=== PATIENT | male | born 1955 | race Caucasian/White ===

== ENCOUNTER 2016-06-28 13:02 | Inpatient (IN) | payer OTHER ==
[2016-06-28] MEDS ORDERED: ASPIRIN 81 MG CHEW PO STA (13:19)
[2016-06-28] MEDS ORDERED: NITROGLYCERIN OINT 1 INCH/GM PACKET TOPICAL STA (13:19)
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
[2016-06-28 13:48] LABS: Aty Lym Flag Slight; CH 34.2; CHCM 33.3; HCT 41.1 % (39.0-53.0); HGB 13.8 gm/dL (13.0-17.5); MCH 34.6 pg (25.0-35.0); MCHC 33.5 g/dL (31.0-37.0); MCV 103.4 fL (80.0-100.0); Macrocytosis Slight; Mean Platelet Volume 8.2; RBC 3.98 m/uL (4.30-5.90); RDW 13.6 % (11.5-15.5); WBC 7.9 k/uL (3.8-10.6)
[2016-06-28 13:52] LABS: Anion Gap 9 mmol/L; Calcium 9.3 mg/dL (8.4-10.2); Carbon Dioxide 26 mmol/L (22-30); Chloride 106 mmol/L (98-107); Glucose 92 mg/dL (74-99); Non-African American GFR(MDRD) >60 (>60 ml/min/1.73 sqM); Potassium 5.3 mmol/L (3.5-5.1); Sodium 141 mmol/L (137-145); Total Bilirubin 0.9 mg/dL (0.2-1.3); Total Protein 7.3 g/dL (6.3-8.2)
[2016-06-28 13:53] LABS: ALT 33 U/L (21-72); AST 33 U/L (17-59); Alkaline Phosphatase 68 U/L (38-126); Blood Urea Nitrogen 17 mg/dL (9-20); Magnesium 1.9 mg/dL (1.6-2.3)
[2016-06-28 13:58] LABS: INR 1.2 (<1.1); Partial Thromboplastin Time 23.5 sec (22.0-30.0); Prothrombin Time 11.8 sec (9.0-12.0)
--- NOTE | 2016-06-28 14:11 | XR ---
EXAMINATION TYPE: XR chest 2V DATE OF EXAM: 06/28/2016 1:53 PM COMPARISON: Prior chest x-ray 08 April 2015 HISTORY: Chest pain TECHNIQUE: Frontal and lateral views of the chest are obtained. FINDINGS: Intracardiac defibrillator leads, post median sternotomy change, surgical clips in the upp er abdomen, stent graft in the abdomen are noted. There is no pneumonia, pneumothorax, or pleural eff usion evident. Heart size is stable and mildly enlarged. IMPRESSION: Patient is rotated. No acute cardiopulmonary disease is evident.
[2016-06-28 14:15] LABS: Creatine Kinase 69 U/L (55-170)
[2016-06-28 14:22] LABS: Add Differential Manual Differential
[2016-06-28 14:27] LABS: Nucleated Red Blood Cells 0 /100 WBC (0-0); Total Cells Counted 100
[2016-06-28 14:28] LABS: Manual Review Performed; Troponin I <0.012 ng/mL (0.000-0.034)
[2016-06-28 14:29] LABS: Large Platelets Present
[2016-06-28] MEDS ORDERED: NITROGLYCERIN SL TABS 0.4 MG TAB SUBLINGUAL PRN (15:59)
[2016-06-28] MEDS ORDERED: HEPARIN SODIUM,PORCINE 5,000 UNIT/ML 1 ML VIAL IV PRN (15:59)
[2016-06-28] MEDS ORDERED: HEPARIN SODIUM,PORCINE 5,000 UNIT/ML 1 ML VIAL IV ONE (15:59)
[2016-06-28] MEDS: HEPARIN SODIUM,PORCINE/D5W PMX 25,000 UNIT in DEXTROSE/WATER 1 500ML.BAG IV SCH (16:29)
[2016-06-28 19:33] LABS: Troponin I 0.185 ng/mL (0.000-0.034)
[2016-06-28] MEDS: HYDROcodone/APAP 10-325MG 1 EACH TAB PO SCH (19:51)
[2016-06-28 20:00] VITALS: BMI 25.1
[2016-06-28] MEDS: NITROGLYCERIN OINT 1 INCH/GM PACKET TOPICAL SCH ×2 (20:10→22:47)
[2016-06-28] MEDS: LISINOPRIL 5 MG TAB PO SCH (20:23)
[2016-06-28] MEDS ORDERED: NON-FORMULARY DRUG (Rivaroxaban [Xarelto] 20 MG) PO SCH (21:00)
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
[2016-06-28] MEDS: FERROUS SULFATE 325 MG TAB PO SCH (22:47)
[2016-06-28] MEDS: ATORVASTATIN 40 MG TAB PO SCH (22:47)
[2016-06-28] MEDS: METOPROLOL TARTRATE 50 MG TAB PO SCH (22:47)
[2016-06-29 01:01] LABS: Creatine Kinase MB 1.9 ng/mL (0.0-2.4)
[2016-06-29 01:19] LABS: Troponin I 0.203 ng/mL (0.000-0.034)
[2016-06-29] MEDS: HYDROcodone/APAP 10-325MG 1 EACH TAB PO SCH ×5 (05:15→23:16)
[2016-06-29] MEDS: NITROGLYCERIN OINT 1 INCH/GM PACKET TOPICAL SCH ×4 (05:42→23:16)
[2016-06-29 06:42] LABS: Mean Platelet Volume 8.1
[2016-06-29 06:45] LABS: Potassium 4.7 mmol/L (3.5-5.1)
[2016-06-29] MEDS: FUROSEMIDE 20 MG TAB PO SCH (08:48)
[2016-06-29] MEDS: METOPROLOL TARTRATE 50 MG TAB PO SCH ×2 (08:49→22:21)
[2016-06-29] MEDS: LISINOPRIL 5 MG TAB PO SCH (08:49)
[2016-06-29] MEDS: FERROUS SULFATE 325 MG TAB PO SCH ×2 (08:49→22:22)
[2016-06-29] MEDS: ASPIRIN 325 MG TAB PO SCH (08:49)
[2016-06-29] MEDS: MULTIVITAMINS, THERA 1 EACH TAB PO SCH (11:24)
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
--- NOTE | 2016-06-29 15:41 | PN ---
DATE OF SERVICE: 06/29/2016 This 60-year-old white male who has a long-standing history of coronary artery disease, has had a myocardial infarction and coronary artery bypass graft in the past. Patient came to the emergency room with bilateral jaw pain and chest discomfort and patient was evaluated in the emergency room and patient was admitted to the hospital for further evaluation and treatment. The patient was admitted with telemetry and heart being monitored with telemetry and serial EKGs and cardiac enzymes were obtained. Cardiology consultation has been requested. His last troponin level was 0.23 and this has been report the trimming caser. Patient today seems to be fairly comfortable and he is asymptomatic. Vital signs are stable. At the time of admission, the patient had slightly elevated serum potassium. Today it has come down to normal and is 4.7 and sodium 140. BUN and creatinine were within normal limits. His vital signs are stable. Heart is in sinus rhythm. Lungs are clear. He has no acute cardiorespiratory problems. Patient is being evaluated by trimming caser and in the meantime, will continue current medications. The patient has already been placed back on his previous home medications. Prognosis is guarded. The diagnosis, prognosis, and therapeutic plans were discussed in detail with the patient today also.
--- NOTE | 2016-06-29 16:01 | ECHOF ---
Referral Reason:unstable angina MEASUREMENTS -------- HEIGHT: 157.5 cm WEIGHT: 88.9 kg BP: 140/660 RVIDd: 3.3 cm (< 3.3) IVSd: 1.2 cm (0.6 - 1.1) LVIDd: 5.9 cm (3.9 - 5.3) LVPWd: 1.1 cm (0.6 - 1.1) IVSs: 1.7 cm LVIDs: 4.9 cm LVPWs: 1.5 cm LA Diam: 4.6 cm (2.7 - 3.8) Ao Diam: 3.5 cm (2.0 - 3.7) AV Cusp: 1.5 cm (1.5 - 2.6) LA Diam: 4.6 cm (2.7 - 3.8) MV EXCURSION: 16.594 mm (> 18.000) MV EF SLOPE: 78 mm/s (70 - 150) EPSS: 1.3 cm MV E Catarino: 0.55 m/s MV DecT: 225 ms MV A Catarino: 0.36 m/s MV E/A Ratio: 1.54 RAP: 5.00 mmHg RVSP: 9.35 mmHg FINDINGS -------- Paced rhythm. This was a techncally difficult study with suboptimal views, , Definity utilized for enhancement of images. There is mild concentric left ventricular hypertrophy. There is severe global hypokinesis of LV . Overall left ventricular systolic function is severely impaired with, an EF < 20%. The right ventricle is mildly enlarged. The left atrium is moderately dilated. The right atrial size is normal. 1.5MG OF DEFINITY UTLIZED: 2 OR MORE WALL SEGMENTS NOT VISUALIZED. There is mild aortic valve sclerosis. There is no evidence of aortic regurgitation. Mild mitral annular calcification present. Mild mitral regurgitation is present. Mild tricuspid regurgitation present. Right ventricular systolic pressure is normal at < 35 mmHg. There is no evidence of pulmonary hypertension. There is no pulmonic regurgitation present. The aortic root size is normal. There is no pericardial effusion. CONCLUSIONS -------- 1. This was a techncally difficult study with suboptimal views, , Definity utilized for enhancement of images. 2. Mild tricuspid regurgitation present. 3. Right ventricular systolic pressure is normal at < 35 mmHg. 4. There is no evidence of pulmonary hypertension. 5. The aortic root size is normal. 6. There is no pericardial effusion. 7. There is mild concentric left ventricular hypertrophy. 8. There is severe global hypokinesis of LV . 9. Overall left ventricular systolic function is severely impaired with, an EF < 20%. 10. The left atrium is moderately dilated. 11. 1.5MG OF DEFINITY UTLIZED: 2 OR MORE WALL SEGMENTS NOT VISUALIZED. 12. There is mild aortic valve sclerosis. 13. Mild mitral annular calcification present. 14. Mild mitral regurgitation is present. DERMATOLOGY SPECIALIST: Ting Werner RDCS
[2016-06-29] MEDS: HEPARIN SODIUM,PORCINE/D5W PMX 25,000 UNIT in DEXTROSE/WATER 1 500ML.BAG IV SCH (16:20)
[2016-06-29] MEDS: DIAZEPAM 5 MG TAB PO SCH (22:20)
[2016-06-29] MEDS: ATORVASTATIN 40 MG TAB PO SCH (22:22)
[2016-06-30] MEDS: NITROGLYCERIN OINT 1 INCH/GM PACKET TOPICAL SCH ×3 (06:09→17:43)
[2016-06-30] MEDS: HYDROcodone/APAP 10-325MG 1 EACH TAB PO SCH ×3 (06:51→17:40)
[2016-06-30 07:06] LABS: Mean Platelet Volume 7.9
[2016-06-30] MEDS: LISINOPRIL 5 MG TAB PO SCH (08:43)
[2016-06-30] MEDS: ASPIRIN 325 MG TAB PO SCH (08:43)
[2016-06-30] MEDS: METOPROLOL TARTRATE 50 MG TAB PO SCH ×2 (08:43→20:21)
[2016-06-30] MEDS: FERROUS SULFATE 325 MG TAB PO SCH ×2 (08:43→20:21)
[2016-06-30] MEDS: FUROSEMIDE 20 MG TAB PO SCH (08:43)
[2016-06-30] MEDS: MULTIVITAMINS, THERA 1 EACH TAB PO SCH (11:35)
[2016-06-30] MEDS: HEPARIN SODIUM,PORCINE/D5W PMX 25,000 UNIT in DEXTROSE/WATER 1 500ML.BAG IV SCH (15:33)
--- NOTE | 2016-06-30 17:28 | PN ---
DATE OF SERVICE: 06/30/2016 This is a 60-year-old white male who has a long-standing history of coronary artery disease and he has had coronary artery bypass graft in the past and also has a history of myocardial infarction in the past. He was admitted to hospital through the emergency room because of sudden onset of bilateral jaw pain and patient also had some chest discomfort. The patient's EKG and cardiac enzymes were unremarkable in the ER and patient was admitted to the hospital for further evaluation and treatment. Patient had a serial EKGs and cardiac enzymes and cardiology consultation was requested. Troponin was found to be related in the later samples and patient apparently has non-ST elevation myocardial infarction and cardiology saw the patient in consultation and he has been scheduled for cardiac catheterization tomorrow. Otherwise, his vital signs are stable. He is free of any chest pain and he has been placed back on his previous medications. Patient is also complaining of anxiety and we will place him on Xanax 0.25 mg p.o. t.i.d. p.r.n. Patient was told that cardiology is planning to go cardiac catheterization tomorrow. The patient is agreeable for that. Prognosis is guarded.
--- NOTE | 2016-06-30 19:48 | P.PN ---
Subjective Principal diagnosis: Non-ST elevation myocardial infarction. Ischemic cardiomyopathy, previous bypass surgery This patient with history of previous bypass surgery is admitted to the hospital with chest pain size to of angina. Cardiac enzyme studies are positive suggestive of non-ST elevation PR. Patient is feeling better. He denies any chest pain shortness of breath dizziness or syncope. Is going to have cardiac catheterization by Dr. VC Osman tomorrow. We'll keep him nothing by mouth after midnight. She'll continue current medical therapy Objective - Vital Signs Vital signs: Vital Signs Temp 97.1 F L 06/30/16 16:00 Pulse 50 L 06/30/16 16:00 Resp 18 06/30/16 16:00 BP 116/80 06/30/16 16:00 Pulse Ox 95 06/30/16 16:00 Intake & Output 06/30/16 06/30/16 07/01/16 06:59 18:59 06:59 Intake Total 542.4 800 Output Total 2150 Balance 542.4 -1350 Weight 89.1 kg 89.1 kg Intake: IV 542.4 Heparin Sodium,Porcine/ 542.4 D5w Pmx 25,000 unit In Dextrose/Water 1 500ml. bag @ 12 UNITS/KG/HR 19. 59 mls/hr IV .Q24H [facility] Rx #:[id number] Intake, IV Titration 500 Amount Heparin Sodium,Porcine/ 500 D5w Pmx 25,000 unit In Dextrose/Water 1 500ml. bag @ 12 UNITS/KG/HR 19. 59 mls/hr IV .Q24H [facility] Rx #:[id number] Oral 300 Output: Urine 2150 Other: Voiding Method Toilet Toilet # Voids 2 2 - Exam GENERAL EXAM: Patient is alert and oriented and doesn't appear to be in any acute distress HEENT: Normocephalic. Normal reaction of pupils, equal size, normal range of extraocular motion. No erythema or exudates in the throat. NECK: No masses, no nuchal rigidity. CHEST: No chest wall deformity. LUNGS: Equal air entry with no crackles or wheeze. HEART: S1 and S2 normal with no audible mumurs or gallops. Regular rhythm, femorals equal on both sides.. ABDOMEN: No hepatosplenomegaly, normal bowel sounds, no guarding or rigidity. SKIN: No rashes CENTRAL NERVOUS SYSTEM: No focal deficits. EXTREMITIES: No cyanosis, clubbing or edema. - Labs CBC & Chem 7: 06/30/16 06:03 06/29/16 06:04 Labs: Abnormal Lab Results - Last 24 Hours (Table) 06/30/16 Range/Units 06:03 APTT 52.4 H (22.0-30.0) sec Assessment and Plan (1) Non-ST elevation PR (NSTEMI) Status: Acute (2) AICD (automatic cardioverter/defibrillator) present Status: Chronic (3) Cardiomyopathy Status: Chronic (4) Ischemic cardiomyopathy Status: Chronic (5) S/P aorto-bifemoral bypass surgery Status: Chronic Plan: Patient is currently stable. We will continue current medical therapy. He is going to have a cardiac catheterization by Dr. VC Osman tomorrow. Prognosis is guarded
[2016-06-30] MEDS: ATORVASTATIN 40 MG TAB PO SCH (20:21)
[2016-06-30] MEDS: DIAZEPAM 5 MG TAB PO SCH (20:36)
[2016-06-30] MEDS: ALPRAZolam 0.25 MG TAB PO PRN (20:54)
[2016-07-01] MEDS: HYDROcodone/APAP 10-325MG 1 EACH TAB PO SCH ×5 (00:48→23:23)
[2016-07-01] MEDS: NITROGLYCERIN OINT 1 INCH/GM PACKET TOPICAL SCH ×3 (00:49→12:02)
[2016-07-01 05:59] LABS: Mean Platelet Volume 8.1
[2016-07-01] MEDS: LISINOPRIL 5 MG TAB PO SCH (06:21)
[2016-07-01] MEDS: ASPIRIN 325 MG TAB PO SCH (06:21)
[2016-07-01] MEDS: METOPROLOL TARTRATE 50 MG TAB PO SCH ×2 (06:22→21:36)
[2016-07-01] MEDS: FERROUS SULFATE 325 MG TAB PO SCH ×2 (06:22→21:36)
[2016-07-01 06:34] LABS: ALT 40 U/L (21-72); AST 41 U/L (17-59); Alkaline Phosphatase 75 U/L (38-126); Anion Gap 8 mmol/L; Blood Urea Nitrogen 17 mg/dL (9-20); Calcium 9.2 mg/dL (8.4-10.2); Carbon Dioxide 29 mmol/L (22-30); Chloride 104 mmol/L (98-107); Glucose 105 mg/dL (74-99); Non-African American GFR(MDRD) >60 (>60 ml/min/1.73 sqM); Potassium 4.4 mmol/L (3.5-5.1); Sodium 141 mmol/L (137-145); Total Bilirubin 0.7 mg/dL (0.2-1.3); Total Protein 7.3 g/dL (6.3-8.2)
[2016-07-01] MEDS: ALPRAZolam 0.25 MG TAB PO PRN ×3 (08:07→23:23)
[2016-07-01] MEDS: FUROSEMIDE 20 MG TAB PO SCH (09:03)
[2016-07-01] MEDS: MULTIVITAMINS, THERA 1 EACH TAB PO SCH (10:45)
[2016-07-01] MEDS ORDERED: HYDROCORTISONE SUCCINATE 100 MG/2 ML VIAL IV STA (11:02)
[2016-07-01] MEDS ORDERED: ASPIRIN 325 MG TAB PO STA (11:03)
[2016-07-01] MEDS ORDERED: SODIUM CHLORIDE 0.9% 1,000 ML in EMPTY BAG 1 BAG IV ONE (11:03)
[2016-07-01] MEDS ORDERED: ATORVASTATIN 80 MG TAB PO STA (11:03)
[2016-07-01] MEDS ORDERED: NITROGLYCERIN SL TABS 0.4 MG TAB SUBLINGUAL PRN (11:03)
[2016-07-01] MEDS ORDERED: ALPRAZolam 0.5 MG TAB PO PRN (11:03)
[2016-07-01] MEDS ORDERED: IV FLUID CONTINUATION 50 ML IV ONE (11:27)
[2016-07-01] MEDS ORDERED: MIDAZOLAM 2 MG/2 ML VIAL ONE (11:32)
[2016-07-01] MEDS ORDERED: LIDOCAINE 2% INJ 20 MG/ML (20 ML MDV) ONE (11:32)
[2016-07-01] MEDS ORDERED: diphenhydrAMINE 50 MG/ML 1 ML VIAL ONE (11:32)
[2016-07-01] MEDS ORDERED: SODIUM CHLORIDE 0.9% 1,000 ML IV ONE (11:42)
[2016-07-01] MEDS ORDERED: fentaNYL (PF) 50 MCG/ML 2 ML AMP ONE (11:52)
[2016-07-01] MEDS ORDERED: MIDAZOLAM 2 MG/2 ML VIAL IV ONE (11:55)
[2016-07-01] MEDS ORDERED: fentaNYL (PF) 50 MCG/ML 2 ML AMP IV ONE (11:55)
[2016-07-01] MEDS ORDERED: diphenhydrAMINE 50 MG/ML 1 ML VIAL IVP ONE (11:56)
[2016-07-01] MEDS ORDERED: LIDOCAINE 2% INJ 20 MG/ML SQ ONE (11:57)
[2016-07-01] MEDS ORDERED: CLOPIDOGREL 75 MG TAB ONE ×2 (12:36)
[2016-07-01] MEDS ORDERED: IOHEXOL 350 MG/ML 125ML BOTTLE INJ ONE (12:48)
[2016-07-01] MEDS ORDERED: CLOPIDOGREL 75 MG TAB PO ONE (12:49)
[2016-07-01] MEDS ORDERED: MAG HYDROX/AL HYDROX/SIMETH 30 ML CUP ONE (12:53)
[2016-07-01] MEDS ORDERED: MAG HYDROX/AL HYDROX/SIMETH 30 ML CUP PO ONE (12:54)
[2016-07-01] MEDS ORDERED: RX INFO: IV CONTRAST WAS GIVEN 1 EACH MISC MISCELLANE PRN (14:21)
--- NOTE | 2016-07-01 18:26 | PN ---
This is a 60-year-old white male who has long-standing history of coronary artery disease and has had coronary artery bypass graft in the past and also has had multiple stent placements and history of myocardial infarction in the past. Patient was admitted to the hospital with chest pain. Troponin was elevated and was seen by [facility] in consultation and since admission his heart was monitored and serial EKGs and cardiac enzymes were obtained. Patient's symptoms have subsided. Patient was scheduled for a cardiac catheterization today. The patient gone for cardiac cath by Dr. Lluvia Osman. Otherwise, the patient has been pretty stable and vital signs are stable. He denies any chest pain or shortness of breath. He has no acute cardiorespiratory problems. Prognosis is guarded. Further treatment will be decided depending on the findings in cardiac catheterization.
[2016-07-01] MEDS: DIAZEPAM 5 MG TAB PO SCH (21:36)
[2016-07-02 05:35] VITALS: RESP 18
[2016-07-02] MEDS: HYDROcodone/APAP 10-325MG 1 EACH TAB PO SCH ×2 (06:08→11:52)
--- NOTE | 2016-07-02 07:42 | CC ---
DATE OF SERVICE: Mr. Yates is a 60-year-old gentleman who was admitted with symptoms of unstable angina. Patient had positive enzymes suggestive of non-Q-wave myocardial infarction. In view of that, the patient was recommended to have a cardiac catheterization for definitive diagnosis. PROCEDURE: Right groin was prepped and draped in the usual manner and the skin was infiltrated with 2% Xylocaine. The right femoral artery was entered using Seldinger technique. A #6 Yoruba sheath was placed in. Selective coronary angiography was then performed in multiple projections and left ventricular pressures and aortic root injection were performed. Left main coronary artery is normal and patent. LAD has ostial stenosis of 90% and then it is totally occluded after the origin of the septal grease maker. The diagonal branches are also occluded. Circumflex coronary artery obtuse marginal branches are occluded. Right coronary artery is totally occluded. Saphenous vein graft to the diagonal obtuse marginal branch as well as a right coronary artery is totally occluded. The SANTORO graft to the LAD is patent. FINAL IMPRESSION: This study shows SANTORO graft to the LAD is patent. The saphenous vein graft to the obtuse marginal branch, diagonal branch as well as the right coronary artery are occluded. RECOMMENDATIONS: We will recommend to continue the patient on medical treatment.
[2016-07-02] MEDS: METOPROLOL TARTRATE 50 MG TAB PO SCH (07:52)
[2016-07-02] MEDS: FERROUS SULFATE 325 MG TAB PO SCH (07:52)
[2016-07-02] MEDS: FUROSEMIDE 20 MG TAB PO SCH (07:53)
[2016-07-02] MEDS: MULTIVITAMINS, THERA 1 EACH TAB PO SCH (07:53)
[2016-07-02] MEDS: LISINOPRIL 5 MG TAB PO SCH (07:53)
[2016-07-02] MEDS: ALPRAZolam 0.25 MG TAB PO PRN (07:58)
[2016-07-02] MEDS ORDERED: RIVAROXABAN 15 MG TAB PO SCH (08:30)
[2016-07-02] MEDS ORDERED: CLOPIDOGREL 75 MG TAB PO SCH (09:00)
[2016-07-02 09:06] VITALS: TEMP 98
[2016-07-02 11:07] VITALS: BP 124/60; PULSE 74
--- NOTE | 2016-07-02 15:31 | P.PN ---
Subjective Principal diagnosis: Non-STEMI Pleasant 60-year-old gentleman who follows with Dr. VC Osman in the office. He has a known history of atrial fibrillation, coronary artery disease , status post four-vessel bypass in 1996, TIA, hypertension, hyperlipidemia, previous MIs, AAA with stent 3 years ago a [facility]. The patient his last cardiac catheterization was done several years ago and showed blockages to 2 of his bypass grafts. He says he has had a stress test in the last year. He presented to the emergency department after developing some pain in his jaw that he described as aching as well as some palpitations. This occurred after becoming emotionally upset. He says that discomfort in his jaw is very similar to that he experienced during a prior [place] . Patient did rule in for non-Q-wave myocardial infarction. He was taken to the cardiac catheterization lab yesterday by Dr. VC Osman where patient was found to have a patent SANTORO to the LAD with occluded vein grafts. Maximal medical therapy was advised. Patient was seen and examined this morning, denies any chest pain or difficulty in breathing. He has been up ambulating without any difficulty. Objective - Vital Signs Vital signs: Vital Signs Temp 98 F 07/02/16 08:00 Pulse 74 07/02/16 11:05 Resp 18 07/02/16 11:05 BP 124/60 07/02/16 11:05 Pulse Ox 96 07/02/16 11:05 Intake & Output 07/01/16 07/02/16 07/02/16 18:59 06:59 18:59 Intake Total 1020 450 600 Output Total 700 600 Balance 320 450 0 Weight 91.1 kg Intake: IV 180 150 Heparin Sodium,Porcine/ 80 150 D5w Pmx 25,000 unit In Dextrose/Water 1 500ml. bag @ 12 UNITS/KG/HR 19. 59 mls/hr IV .Q24H [facility] Rx #:[id number] Intake, IV Titration 360 Amount Sodium Chloride 0.9% 1, 360 000 ml As IV .STK-MED ONE Rx#:[id number] Oral 480 300 600 Output: Urine 700 600 Other: Voiding Method Toilet Toilet # Voids 0 1 2 - Exam PHYSICAL EXAMINATION: HEENT: Head is atraumatic, normocephalic. Pupils equal, round. Neck is supple. There is no elevated jugular venous pressure. HEART EXAMINATION: Heart S1, S2 normal. No murmur or gallop heard. CHEST EXAMINATION: Lungs are clear to auscultation and precussion. No chest wall tenderness is noted on palpation or with deep breathing. ABDOMEN: Soft, nontender. Bowel sounds are heard. No organomegaly noted. EXTREMITIES: 2+ peripheral pulses with no evidence of peripheral edema and no calf tenderness noted. Right groin soft, no evidence of any hematoma. NEUROLOGIC patient is awake, alert and oriented -3. . - Labs CBC & Chem 7: 07/01/16 05:35 07/01/16 05:35 Assessment and Plan Plan: Assessment and Plan Plan: Assessment and plan #1 non-ST elevation NE status post cardiac catheterization which revealed a patent SANTORO to the LAD with occluded vein grafts. Medical therapy advised, #2 paroxysmal atrial fibrillation #3 hypertension #4 hyperlipidemia #5 coronary artery disease with prior coronary artery bypass grafting #6 AAA status post repair #7 ischemic cardiomyopathy, status post AICD implantation Patient may be able to be discharged home today. We'll make him a follow-up appointment to see Dr. VC Osman in the office in one week. Patient will be discharged home on Plavix 75 mg daily along with xarelto 15 mg daily. He will not be discharged home on an aspirin, as he is going home with the Plavix and xarelto per new guideline recommendations. DNP note has been reviewed, I agree with a documented findings and plan of care. Patient was seen and examined.
[2016-07-02] MEDS ORDERED: ATORVASTATIN 40 MG TAB PO SCH (21:00)
--- NOTE | 2016-08-28 11:51 | DS ---
DATE OF ADMISSION: 06/29/2016 DATE OF DISCHARGE: 07/02/2016 DISCHARGE DIAGNOSES: 1. Chest pain. 2. Non Q myocardial infarction. 3. Paroxysmal atrial fibrillation. 4. Hypertensive cardiovascular disease. 5. Coronary artery disease with a prior coronary artery bypass graft. 6. Abdominal aortic aneurysm, status post surgical repair. 7. Ischemic cardiomyopathy, status post AICD implant. This is a 60-year-old white male who was found to have coronary artery disease and has had coronary artery bypass graft and also had a history of myocardial infarction in the past. Patient had some mental upset and he started feeling heaviness in the anterior chest and there was also ache and pain at the jaw bilaterally. There was no diaphoresis, but this patient had some shortness of breath. He was brought to the emergency room. In the ER, his EKG showed atrial fibrillation with controlled ventricular rate. There were nonspecific ST-T changes. His initial cardiac enzymes were within normal limits. The patient was admitted to the hospital for further evaluation and treatment. For details of the physical examination at the time of admission, please refer to the history and physical. HOSPITAL COURSE: The patient was admitted to telemetry and his heart was monitored. Serial EKGs and cardiac enzymes were obtained and his troponin was found to be elevated to 0.23 and he was seen by [facility] in consultation. He was placed back on his previous medications and Dr. Lluvia Osman took him to the cardiac phlebotomist lab assistant and did a cardiac catheterization and patient was found to have patent graft to the LAD, but there was complete occlusion of the graft to right coronary artery. Patient's cardiac status became stable and patient also known to have ischemic cardiomyopathy. Dr. Osman recommended to continue on medical management and patient was discharged home on 07/02/2016 and detailed discharge instructions were given. He will continue on: 1. Xanax 0.5 mg p.o. t.i.d. p.r.n. 2. Plavix 75 mg p.o. daily. 3. Nitroglycerin sublingual p.r.n. 4. Xarelto 15 mg p.o. daily. 5. Also he will continue on with Lipitor 40 mg daily. 6. Ferrous sulfate 325 mg p.o. daily. 7. Lasix 20 mg daily. 8. [place] p.r.n. 9. Lisinopril I5 mg daily. 10. Metoprolol 50 mg b.i.d. The patient will be followed by the almond blancher as outpatient and also he will have follow up with Dr. Massey who is his primary care physician.
== END 2016-07-02 16:25 | disposition home or self-care (01) | DRG 282 ==
LOC: EC 13:02 → 3OBS 15:59 → 6SEL 20:38 → OBSVTOIN 06-29 15:13 → 6SEL 07-01 13:02
PROVIDERS: ADMIT Internal Medicine; ATTEND Internal Medicine
PROC: B2131ZZ Fluoroscopy of Multiple Coronary Artery Bypass Grafts using Low Osmolar Contrast (ICD-10-PCS; 2016-07-01)
PROC: B2181ZZ Fluoroscopy of Left Internal Mammary Bypass Graft using Low Osmolar Contrast (ICD-10-PCS; 2016-07-01)
PROC: B2111ZZ Fluoroscopy of Multiple Coronary Arteries using Low Osmolar Contrast (ICD-10-PCS; principal; 2016-07-01 11:27)
DX: I21.4 Non-ST elevation (NSTEMI) myocardial infarction (principal); I25.82 Chronic total occlusion of coronary artery; I45.4 Nonspecific intraventricular block; I25.110 Atherosclerotic heart disease of native coronary artery with unstable angina pectoris; I25.5 Ischemic cardiomyopathy; Z95.1 Presence of aortocoronary bypass graft; I10 Essential (primary) hypertension; I48.0 Paroxysmal atrial fibrillation; E78.5 Hyperlipidemia, unspecified; F43.10 Post-traumatic stress disorder, unspecified; I25.2 Old myocardial infarction; M19.91 Primary osteoarthritis, unspecified site; K44.9 Diaphragmatic hernia without obstruction or gangrene; M50.321 Other cervical disc degeneration at C4-C5 level; M51.36 Other intervertebral disc degeneration, lumbar region; K21.9 Gastro-esophageal reflux disease without esophagitis; Z95.810 Presence of automatic (implantable) cardiac defibrillator; Z95.5 Presence of coronary angioplasty implant and graft; Z91.041 Radiographic dye allergy status; Z90.81 Acquired absence of spleen; Z87.891 Personal history of nicotine dependence; Z87.442 Personal history of urinary calculi; Z86.73 Personal history of transient ischemic attack (TIA), and cerebral infarction without residual deficits; Z79.01 Long term (current) use of anticoagulants; Z79.899 Other long term (current) drug therapy; Z82.49 Family history of ischemic heart disease and other diseases of the circulatory system; Z98.42 Cataract extraction status, left eye; Z98.41 Cataract extraction status, right eye
CPT/HCPCS: 36415; 71020; 80051; 80053; 80061; 82550; 82553; 83735; 84484; 85025; 85049; 85610; 85730; 93005; 93306; 93458; 94760; 96365; 96366; 96376; 99291

== ENCOUNTER → 2016-09-06 | Outpatient (CLI) | payer OTHER ==
[2016-09-06 09:16] LABS: Basophils # (A) 0.1 k/uL (0-0.2); Basophils % (A) 1 %; CH 33.3; CHCM 33.4; Eosinophils # (A) 0.5 k/uL (0-0.7); Eosinophils % (A) 5 %; HCT 41.2 % (39.0-53.0); HDW 2.52; HGB 14.4 gm/dL (13.0-17.5); Luc # (Auto) 0.39; Luc % (Auto) 4; Lymphocytes # (A) 4.1 k/uL (1.0-4.8); Lymphocytes % (A) 46 %; MCHC 34.9 g/dL (31.0-37.0); MCV 100.2 fL (80.0-100.0); Monocytes # (A) 0.7 k/uL (0-1.0); Monocytes % (A) 7 %; Neutrophils # (A) 3.2 k/uL (1.3-7.7); Neutrophils % (A) 36 %; RBC 4.11 m/uL (4.30-5.90); WBC 8.9 k/uL (3.8-10.6); WBC (Perox) 9.07
[2016-09-06 10:18] LABS: Erythrocyte Sedimentation Rate 8 mm/hr (0-15)
[2016-09-06 10:36] LABS: Hemoglobin A1C 5.8 % (4.2-6.1)
[2016-09-06 11:22] LABS: ALT 32 U/L (21-72); AST 23 U/L (17-59); Alkaline Phosphatase 79 U/L (38-126); Anion Gap 10 mmol/L; Blood Urea Nitrogen 18 mg/dL (9-20); C Reactive Protein <5.0 mg/L (<10.0); Calcium 9.5 mg/dL (8.4-10.2); Carbon Dioxide 27 mmol/L (22-30); Chloride 105 mmol/L (98-107); Cholesterol 128 mg/dL (<200); Creatine Kinase 72 U/L (55-170); Glucose 111 mg/dL (74-99); HDL Cholesterol 34 mg/dL (40-60); Magnesium 1.9 mg/dL (1.6-2.3); Non-African American GFR(MDRD) >60 (>60 ml/min/1.73 sqM); Phosphorous 3.4 mg/dL (2.5-4.5); Potassium 4.8 mmol/L (3.5-5.1); Sodium 142 mmol/L (137-145); Total Bilirubin 1.1 mg/dL (0.2-1.3); Total Protein 7.1 g/dL (6.3-8.2); Triglycerides 117 mg/dL (<150); Uric Acid 6.4 mg/dL (3.5-8.5)
[2016-09-06 11:47] LABS: Prostate Specific Antigen 0.12 ng/mL (0.00-4.00)
== END | disposition home or self-care (01) ==
LOC: LABWHC1 08:31
PROVIDERS: ATTEND Internal Medicine
DX: D64.9 Anemia, unspecified (principal); N40.0 Benign prostatic hyperplasia without lower urinary tract symptoms; E78.5 Hyperlipidemia, unspecified; I10 Essential (primary) hypertension; E55.9 Vitamin D deficiency, unspecified
CPT/HCPCS: 36415; 80053; 80061; 82306; 82550; 83036; 83735; 84100; 84153; 84443; 84550; 85025; 85652; 86140

== ENCOUNTER 2016-10-05 12:43 | Emergency (ER) | payer OTHER ==
[2016-10-05 13:00] VITALS: RESP 18
[2016-10-05] MEDS ORDERED: SODIUM CHLORIDE 0.9% 1,000 ML IV STA (13:36)
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
[2016-10-05 14:03] LABS: Basophils # (A) 0.1 k/uL (0-0.2); Basophils % (A) 1 %; CH 34.2; Eosinophils # (A) 0.2 k/uL (0-0.7); Eosinophils % (A) 3 %; HCT 41.3 % (39.0-53.0); HDW 2.68; Luc # (Auto) 0.17; Luc % (Auto) 3; Lymphocytes # (A) 3.2 k/uL (1.0-4.8); Lymphocytes % (A) 46 %; MCH 34.1 pg (25.0-35.0); MCHC 33.8 g/dL (31.0-37.0); MCV 101.1 fL (80.0-100.0); Macrocytosis Slight; Mean Platelet Volume 8.5; Monocytes # (A) 0.5 k/uL (0-1.0); Monocytes % (A) 7 %; Neutrophils # (A) 2.8 k/uL (1.3-7.7); Neutrophils % (A) 41 %; RBC 4.09 m/uL (4.30-5.90); WBC 6.9 k/uL (3.8-10.6); WBC (Perox) 6.79
[2016-10-05 14:22] LABS: ALT 33 U/L (21-72); AST 26 U/L (17-59); Alkaline Phosphatase 70 U/L (38-126); Anion Gap 12 mmol/L; Blood Urea Nitrogen 16 mg/dL (9-20); Calcium 9.2 mg/dL (8.4-10.2); Carbon Dioxide 20 mmol/L (22-30); Chloride 106 mmol/L (98-107); Glucose 113 mg/dL (74-99); Magnesium 1.8 mg/dL (1.6-2.3); Non-African American GFR(MDRD) 52 (>60 ml/min/1.73 sqM); Phosphorous 3.1 mg/dL (2.5-4.5); Potassium 5.3 mmol/L (3.5-5.1); Sodium 138 mmol/L (137-145); Total Bilirubin 1.1 mg/dL (0.2-1.3); Total Protein 7.2 g/dL (6.3-8.2)
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
[2016-10-05 14:25] VITALS: PULSE 50
[2016-10-05 14:28] LABS: INR 1.1 (<1.2); Partial Thromboplastin Time 22.2 sec (22.0-30.0); Prothrombin Time 10.9 sec (9.0-12.0)
[2016-10-05 14:29] LABS: Creatine Kinase 60 U/L (55-170)
[2016-10-05 14:41] LABS: Creatine Kinase MB 0.8 ng/mL (0.0-2.4); Troponin I <0.012 ng/mL (0.000-0.034)
[2016-10-05 15:32] VITALS: BP 108/56; TEMP 98.2
== END 2016-10-05 15:46 | disposition home or self-care (01) ==
LOC: EC 12:43
DX: R53.1 Weakness (principal); T48.1X5A Adverse effect of skeletal muscle relaxants [neuromuscular blocking agents], initial encounter; I48.91 Unspecified atrial fibrillation; M54.9 Dorsalgia, unspecified; I25.10 Atherosclerotic heart disease of native coronary artery without angina pectoris; E78.5 Hyperlipidemia, unspecified; I10 Essential (primary) hypertension; I25.2 Old myocardial infarction; Z86.73 Personal history of transient ischemic attack (TIA), and cerebral infarction without residual deficits; F43.10 Post-traumatic stress disorder, unspecified; Z87.891 Personal history of nicotine dependence; Z79.01 Long term (current) use of anticoagulants; Z79.899 Other long term (current) drug therapy; Z88.8 Allergy status to other drugs, medicaments and biological substances; Z91.041 Radiographic dye allergy status
CPT/HCPCS: 36415; 71010; 80053; 82550; 82553; 83735; 84100; 84443; 84484; 85025; 85610; 85730; 99283

== ENCOUNTER → 2016-10-08 | Outpatient (CLI) | payer OTHER | END | disposition home or self-care (01) | LOC: LABWHC1 11:26 | PROVIDERS: ATTEND Internal Medicine | DX: E78.5 Hyperlipidemia, unspecified (principal) | CPT/HCPCS: 36415; 84132 ==

== ENCOUNTER → 2016-10-11 | Outpatient (CLI) | payer OTHER ==
[2016-10-11 15:05] LABS: Anion Gap 8 mmol/L; Blood Urea Nitrogen 16 mg/dL (9-20); Calcium 9.1 mg/dL (8.4-10.2); Carbon Dioxide 29 mmol/L (22-30); Chloride 103 mmol/L (98-107); Glucose 91 mg/dL (74-99); Non-African American GFR(MDRD) >60 (>60 ml/min/1.73 sqM); Potassium 5.3 mmol/L (3.5-5.1); Sodium 140 mmol/L (137-145)
== END | disposition home or self-care (01) ==
LOC: LABWHC1 14:14
PROVIDERS: ATTEND Internal Medicine
DX: E87.8 Other disorders of electrolyte and fluid balance, not elsewhere classified (principal)
CPT/HCPCS: 36415; 80048

== ENCOUNTER → 2016-10-21 | Outpatient (CLI) | payer OTHER ==
--- NOTE | 2016-10-21 09:02 | CT ---
EXAMINATION TYPE: CT lumbar spine wo con DATE OF EXAM: 10/21/2016 COMPARISON: 06/22/2014 HISTORY: low back pain CT DLP: 937 mGycm CONTRAST: Unenhanced CT of the lumbar spine was performed in the axial coronal and sagittal planes. Unenhanced CT of the lumbar spine was performed. Bone and soft tissue window settings are submitted as well as coronal and sagittal reconstructions. L1-L2: Normal disc space height. No disc herniation protrusion or central stenosis. No facet joint arthropathy. No evidence for foraminal encroachment. L2-L3: Normal disc space height. No disc herniation protrusion or central stenosis. No facet joint arthropathy. No evidence for foraminal encroachment. L3-L4: Mild degenerative disc space narrowing with minimal posterior disc bulge. No herniation or paulina tral stenosis. Mild facet joint arthropathy. Foramina are patent bilaterally. L4-L5: Mild degenerative disc space narrowing. Posterior disc bulging. Facet joint arthropathy. Mild effacement ventral thecal sac without central stenosis or disc herniation. L5-S1: Moderate degenerative disc space narrowing. Left paracentral disc bulge at tears essentially u nchanged. Small herniations difficult to exclude. Left lateral recess stenosis with left greater than right foraminal encroachment. Facet joint arthropathy. No paraspinal masses are identified. Lumbar segments are free if fracture. Interval aortic stent gra ft placement. IMPRESSION: 1. Stable degenerative disc disease and disc bulging greatest at L5-S1 with lateral recess and forami nal as discussed.
== END | disposition home or self-care (01) ==
LOC: RADCTMAIN 08:12
PROVIDERS: ATTEND Psychiatry & Neurology Neurology
DX: M48.06 Spinal stenosis, lumbar region (principal); M51.37 Other intervertebral disc degeneration, lumbosacral region; Z88.3 Allergy status to other anti-infective agents
CPT/HCPCS: 72131

== ENCOUNTER → 2016-10-29 | Outpatient (CLI) | payer OTHER | END | disposition home or self-care (01) | LOC: LABWHC1 13:37 | PROVIDERS: ATTEND Internal Medicine | DX: D64.9 Anemia, unspecified (principal); I10 Essential (primary) hypertension; E87.5 Hyperkalemia | CPT/HCPCS: 36415; 84132 ==

== ENCOUNTER 2016-11-04 21:29 | Inpatient (IN) | payer OTHER ==
[2016-11-04] MEDS ORDERED: NITROGLYCERIN OINT 1 INCH/GM PACKET TOPICAL STA (22:10)
[2016-11-04] MEDS ORDERED: FUROSEMIDE 10 MG/ML 4 ML VIAL IV STA (22:10)
[2016-11-04] MEDS ORDERED: ASPIRIN 81 MG CHEW PO STA (22:11)
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
[2016-11-04 22:28] LABS: Basophils # (A) 0.1 k/uL (0-0.2); Basophils % (A) 1 %; CH 34.8; CHCM 33.8; Eosinophils # (A) 0.3 k/uL (0-0.7); Eosinophils % (A) 3 %; HCT 40.6 % (39.0-53.0); HDW 2.67; HGB 13.3 gm/dL (13.0-17.5); Luc # (Auto) 0.37; Luc % (Auto) 4; Lymphocytes # (A) 4.3 k/uL (1.0-4.8); Lymphocytes % (A) 44 %; MCH 33.9 pg (25.0-35.0); MCHC 32.7 g/dL (31.0-37.0); MCV 103.7 fL (80.0-100.0); Macrocytosis Slight; Mean Platelet Volume 8.9; Monocytes # (A) 0.7 k/uL (0-1.0); Monocytes % (A) 7 %; Neutrophils # (A) 4.1 k/uL (1.3-7.7); Neutrophils % (A) 41 %; RBC 3.92 m/uL (4.30-5.90); RDW 14.4 % (11.5-15.5); WBC 9.9 k/uL (3.8-10.6); WBC (Perox) 9.68
[2016-11-04 22:42] LABS: INR 1.3 (<1.2); Partial Thromboplastin Time 29.6 sec (22.0-30.0); Prothrombin Time 13.1 sec (9.0-12.0)
[2016-11-04 22:45] LABS: ALT 39 U/L (21-72); AST 29 U/L (17-59); Alkaline Phosphatase 73 U/L (38-126); Anion Gap 10 mmol/L; Blood Urea Nitrogen 24 mg/dL (9-20); Calcium 9.4 mg/dL (8.4-10.2); Carbon Dioxide 25 mmol/L (22-30); Chloride 104 mmol/L (98-107); Glucose 99 mg/dL (74-99); Non-African American GFR(MDRD) >60 (>60 ml/min/1.73 sqM); Potassium 4.7 mmol/L (3.5-5.1); Sodium 139 mmol/L (137-145); Total Bilirubin 0.6 mg/dL (0.2-1.3)
[2016-11-04 23:10] LABS: Creatine Kinase MB 0.8 ng/mL (0.0-2.4); Troponin I 0.013 ng/mL (0.000-0.034)
--- NOTE | 2016-11-04 23:57 | XR ---
EXAM: XR Chest, 2 Views CLINICAL HISTORY: Reason: difficulty breathing TECHNIQUE: Frontal and lateral views of the chest. COMPARISON: 10/05/2016. FINDINGS: Lungs: Bilateral perihilar infiltrates are seen suggesting interval worsening of CHF. Bibasilar atelectasis and/or infiltrates, which may be related to the CHF. Pleural space: Probable small left pleural effusion. No pneumothorax. Heart: The heart is enlarged, interval worsening since prior study. Mediastinum: Unchanged. Bones/joints: Sternotomy wires are again seen. Tubes, lines and devices: Left-sided chest wall pacemaker is again seen with lead tips overlying the right atrium and right ventricle. IMPRESSION: 1. Interval worsening of can't megaly suggested. Bilateral perihilar infiltrates are seen suggesting interval worsening of CHF. 2. Bibasilar atelectasis and/or infiltrates, which may be related to the CHF. Clinical correlation recommended.
[2016-11-05] MEDS ORDERED: FUROSEMIDE 10 MG/ML 4 ML VIAL IV STA (00:11)
[2016-11-05] MEDS ORDERED: HYDROcodone/APAP 10-325MG 1 EACH TAB PO ONE (00:14)
[2016-11-05] MEDS ORDERED: NITROGLYCERIN SL TABS 0.4 MG TAB SUBLINGUAL PRN (00:24)
[2016-11-05] MEDS: FUROSEMIDE 10 MG/ML 4 ML VIAL IV SCH ×3 (00:37→23:06)
[2016-11-05 07:10] LABS: Troponin I 0.02 ng/mL (0.000-0.034)
[2016-11-05] MEDS: HYDROcodone/APAP 10-325MG 1 EACH TAB PO SCH ×3 (08:17→23:02)
[2016-11-05] MEDS: SERTRALINE 50 MG TAB PO SCH (08:18)
[2016-11-05] MEDS: FERROUS SULFATE 325 MG TAB PO SCH ×2 (08:18→20:22)
[2016-11-05] MEDS: METOPROLOL TARTRATE 50 MG TAB PO SCH ×2 (08:18→20:22)
[2016-11-05] MEDS ORDERED: NITROGLYCERIN OINT 1 INCH/GM PACKET TOPICAL SCH (09:00)
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
[2016-11-05] MEDS ORDERED: hydrALAZINE HCL 25 MG TAB PO SCH (09:45)
[2016-11-05] MEDS ORDERED: ISOSORBIDE MONONITRATE ER 30 MG TAB.ER.24H PO SCH (09:45)
[2016-11-05] MEDS: hydrALAZINE HCL 50 MG TAB PO SCH ×3 (10:08→23:03)
[2016-11-05] MEDS: ISOSORBIDE DINITRATE 10 MG TAB PO SCH ×3 (10:08→23:03)
[2016-11-05 13:41] LABS: Creatine Kinase MB 0.9 ng/mL (0.0-2.4); Troponin I 0.016 ng/mL (0.000-0.034)
[2016-11-05 15:11] VITALS: BMI 26.8
[2016-11-05] MEDS: RIVAROXABAN 10 MG TAB PO SCH (17:44)
[2016-11-05] MEDS: ATORVASTATIN 40 MG TAB PO SCH (20:21)
[2016-11-06] MEDS ORDERED: ASPIRIN 325 MG TAB PO SCH (00:24)
[2016-11-06 06:30] LABS: Basophils # (A) 0.1 k/uL (0-0.2); Basophils % (A) 1 %; CH 34.9; CHCM 34.5; Eosinophils # (A) 0.3 k/uL (0-0.7); Eosinophils % (A) 3 %; HCT 40.5 % (39.0-53.0); HDW 2.65; Luc # (Auto) 0.38; Luc % (Auto) 4; Lymphocytes # (A) 4.2 k/uL (1.0-4.8); Lymphocytes % (A) 43 %; MCH 35.1 pg (25.0-35.0); MCHC 34.5 g/dL (31.0-37.0); MCV 101.9 fL (80.0-100.0); Macrocytosis Slight; Mean Platelet Volume 8.7; Monocytes # (A) 0.8 k/uL (0-1.0); Monocytes % (A) 8 %; Neutrophils % (A) 41 %; RBC 3.98 m/uL (4.30-5.90); RDW 14.6 % (11.5-15.5); WBC 9.8 k/uL (3.8-10.6); WBC (Perox) 9.56
[2016-11-06] MEDS: METOPROLOL TARTRATE 50 MG TAB PO SCH ×2 (08:18→20:01)
[2016-11-06] MEDS: FERROUS SULFATE 325 MG TAB PO SCH ×2 (08:18→20:01)
[2016-11-06] MEDS: ASPIRIN 81 MG CHEW PO SCH (08:18)
[2016-11-06] MEDS: SERTRALINE 50 MG TAB PO SCH (08:18)
[2016-11-06] MEDS: ISOSORBIDE DINITRATE 10 MG TAB PO SCH ×3 (08:18→22:57)
[2016-11-06] MEDS: HYDROcodone/APAP 10-325MG 1 EACH TAB PO SCH ×3 (08:20→22:56)
[2016-11-06] MEDS: hydrALAZINE HCL 50 MG TAB PO SCH ×3 (08:21→22:56)
--- NOTE | 2016-11-06 09:11 | P.PN ---
Progress Note - Text Please see full dictation by Dr. coffman. She was improved on hydralazine and nitrates. We did not start intestinal because he became hyperkalemic on abdoulaye inhibitors. Part of the hyperkalemia may have been dietary. From a heart failure standpoint he shows considerable improvement both in his ability to lie flat as well as walk a longer distance in the hallways and he does have a bit of a headache with hydralazine and we will treated with acetaminophen not opiates. This was discussed with the patient. We will also switch Lasix to 40 mg by mouth twice daily. Daily BMP Will not try ENTRESTO because of a history of hyperkalemia on ABDOULAYE inhibitor's and hives with angiotensin receptor blockers
[2016-11-06] MEDS ORDERED: SACUBITRIL/VALSARTAN 24 MG-26 MG TABLET PO SCH (09:15)
[2016-11-06 10:04] LABS: Anion Gap 11 mmol/L; Blood Urea Nitrogen 33 mg/dL (9-20); Calcium 9.2 mg/dL (8.4-10.2); Carbon Dioxide 25 mmol/L (22-30); Chloride 103 mmol/L (98-107); Glucose 97 mg/dL (74-99); Non-African American GFR(MDRD) >60 (>60 ml/min/1.73 sqM); Potassium 3.8 mmol/L (3.5-5.1); Sodium 139 mmol/L (137-145)
[2016-11-06] MEDS: ACETAMINOPHEN TAB 325 MG TAB PO PRN ×2 (10:26→20:01)
--- NOTE | 2016-11-06 11:56 | P.PN ---
Subjective Principal diagnosis: Congestive heart failure This is a 60-year-old gentleman who follows regularly with Dr. VC Osman in the office. He has a known history of paroxysmal atrial fibrillation , coronary artery disease with prior bypass in 1996, TIA, hypertension, hyperlipidemia, prior myocardial infarctions, ischemic cardiomyopathy with prior AICD implant AAA with stenting at [facility], most recent cardiac catheterization was performed in June of this year which revealed a patent SANTORO graft to the LAD, saphenous vein graft to the obtuse marginal, diagonal, and RCA are all occluded. Maximal medical therapy was advised at that time. Patient also underwent an echocardiogram with Doppler study in June of this year which revealed an ejection fraction of less than 20%. Patient presents to the hospital with symptoms of progressively worsening shortness of breath. He states that the shortness of breath is occurring at rest but much more severe with exertion. He does weigh himself every day, and states he is actually lost weight and not increased in weight. He has had no peripheral edema. Positive PND and orthopnea. Chest x-ray on admission revealed interval worsening of cardiomegaly, bilateral perihilar infiltrates and worsening congestive heart failure. EKG shows a normal sinus rhythm with inferior and anterior Q waves and nonspecific ST-T wave changes. White blood cell count 9.9, hemoglobin 13.3, platelet count 196, d-dimer 3.26. Potassium 4.7, BUN 24, creatinine 1.0. Troponins 0.013, 0.020. BNP level 11,300. Blood pressure on arrival 144, Heart rate in the 50s. 94% on room air. At the time of my examination this morning, patient is sitting up in bed, denies any shortness of breath. 11/06/2016 Patient seen and examined this morning, states he is feeling much better overall. Complaining of a mild headache. Breathing is stable. Potassium 3.8, BUN 33, creatinine 1.1. Objective - Vital Signs Vital signs: Vital Signs Temp 98.0 F 11/06/16 08:00 Pulse 68 11/06/16 08:00 Resp 18 11/06/16 08:00 BP 126/78 11/06/16 08:00 Pulse Ox 96 11/06/16 08:00 Intake & Output 11/05/16 11/06/16 11/06/16 18:59 06:59 18:59 Intake Total 1440 0 240 Output Total 500 401 1 Balance 940 -401 239 Weight 87.2 kg 87.7 kg Intake: Oral 1440 0 240 Output: Urine 500 400 Stool 1 1 Other: Voiding Method Toilet Toilet # Voids 0 2 # Bowel Movements 0 - Exam PHYSICAL EXAMINATION: HEENT: Head is atraumatic, normocephalic. Pupils equal, round. Neck is supple. There is no elevated jugular venous pressure. HEART EXAMINATION: Heart S1, S2 normal. No murmur or gallop heard. CHEST EXAMINATION: Lungs are clear with improvement in air entry to the bases. ABDOMEN: Soft, obese, nontender. Bowel sounds are heard. No organomegaly noted. EXTREMITIES: 2+ peripheral pulses with no evidence of peripheral edema and no calf tenderness noted]. NEUROLOGIC [patient is awake, alert and oriented -3.] . - Labs CBC & Chem 7: 11/06/16 06:09 11/06/16 06:09 Labs: Abnormal Lab Results - Last 24 Hours (Table) 11/06/16 11/06/16 Range/Units 06:09 06:09 RBC 3.98 L (4.30-5.90) m/uL MCV 101.9 H (80.0-100.0) fL MCH 35.1 H (25.0-35.0) pg BUN 33 H (9-20) mg/dL Microbiology - Last 24 Hours (Table) 11/04/16 22:25 Blood Culture - Preliminary Blood No Growth after 24 hours Assessment and Plan Plan: Assessment and plan #1 symptoms of progressively worsening shortness of breath, mostly exertional in nature, positive PND and orthopnea. Systolic congestive heart failure acute on chronic. #2 known history of coronary artery disease with prior bypass surgery in 1996, most recent cardiac catheterization was performed in June of this year which revealed a patent SANTORO to the LAD, saphenous vein graft to the OM and diagonal as well as RCA totally occluded. #3 ischemic cardiomyopathy with prior AICD implant #4 paroxysmal atrial fibrillation, on Xarelto for anticoagulation # 5 hypertension #6 hyperlipidemia #7 AAA with prior stenting #8 prior TIA Plan We'll discontinue the patient's IV Lasix and start him on oral diuretics today. He's been encouraged to be up ambulating today. Plan for possible discharge home in 24 hours if stable. DNP note has been reviewed, I agree with a documented findings and plan of care. Patient was seen and examined.
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
[2016-11-06] MEDS: FUROSEMIDE 40 MG TAB PO SCH (15:17)
[2016-11-06] MEDS: RIVAROXABAN 10 MG TAB PO SCH (15:19)
--- NOTE | 2016-11-06 18:17 | ECHOF ---
Referral Reason:Heart Failure MEASUREMENTS -------- HEIGHT: 182.9 cm WEIGHT: 87.1 kg BP: 139/71 RVIDd: 3.6 cm (< 3.3) IVSd: 1.9 cm (0.6 - 1.1) LVIDd: 5.8 cm (3.9 - 5.3) LVPWd: 1.2 cm (0.6 - 1.1) EDV(Teich): 165 ml IVSs: 2.3 cm LVIDs: 5.1 cm LVPWs: 1.3 cm %IVS Thck: 20 % ESV(Teich): 124 ml EF(Teich): 25 % %FS: 11 % SV(Teich): 40 ml Ao Diam: 3.4 cm (2.0 - 3.7) AV Cusp: 2.1 cm (1.5 - 2.6) LA Diam: 4.7 cm (2.7 - 3.8) MV EXCURSION: 21.866 mm (> 18.000) MV EF SLOPE: 108 mm/s (70 - 150) EPSS: 1.0 cm MV E Cat[place]ino: 0.56 m/s MV DecT: 339 ms MV Dec [place]: 1.6 m/s MV A [place]: 0.36 m/s MV E/A Ratio: 1.57 MV PHT: 98 ms E/E': 10.37 E': 0.05 m/s MR Vmax: 1.70 m/s MR maxP.53 mmHg AV Vmax: 1.09 m/s AV maxP.71 mmHg TR Vmax: 0.95 m/s TR maxP.59 mmHg RAP: 5.00 mmHg RVSP: 8.59 mmHg FINDINGS -------- AICD Pacemaker This was a technically difficult study with suboptimal views. The left ventricle is mildly dilated. There is moderate concentric left ventricular hypertrophy. There is severe global hypokinesis of LV . Overall left ventricular systolic function is severely impaired with, an EF between 20 - 25 %. The right ventricle is mildly enlarged. The left atrium is mildly dilated. The right atrium is normal in size. 1.5mg of Definity was utilized for enhancement of images Aortic valve is trileaflet and is mildly thickened. The mitral valve leaflets are mildly thickened. Mild mitral regurgitation is present. Mild tricuspid regurgitation present. The right ventricular systolic pressure, as measured by Doppler, is 8.59mmHg. Pulmonic valve appears structurally normal. The aortic root size is normal. The pericardium is normal. CONCLUSIONS -------- 1. AICD 2. The right atrium is normal in size. 3. 1.5mg of Definity was utilized for enhancement of images 4. Aortic valve is trileaflet and is mildly thickened. 5. The mitral valve leaflets are mildly thickened. 6. Mild mitral regurgitation is present. 7. Mild tricuspid regurgitation present. 8. The right ventricular systolic pressure, as measured by Doppler, is 8.59mmHg. 9. Pulmonic valve appears structurally normal. 10. The aortic root size is normal. 11. The pericardium is normal. 12. Pacemaker 13. This was a technically difficult study with suboptimal views. 14. The left ventricle is mildly dilated. 15. There is moderate concentric left ventricular hypertrophy. 16. There is severe global hypokinesis of LV . 17. Overall left ventricular systolic function is severely impaired with, an EF between 20 - 25 %. 18. The right ventricle is mildly enlarged. 19. The left atrium is mildly dilated. VOCAL ARTIST: Rachel Niño RD
[2016-11-06] MEDS: ATORVASTATIN 40 MG TAB PO SCH (20:01)
[2016-11-07 00:43] LABS: Magnesium 1.9 mg/dL (1.6-2.3); Potassium 3.4 mmol/L (3.5-5.1)
[2016-11-07] MEDS: ACETAMINOPHEN TAB 325 MG TAB PO PRN ×2 (06:09→20:19)
[2016-11-07] MEDS ORDERED: Potassium Replacement Protocol 1 EACH MISC MISCELLANE PRN (06:17)
[2016-11-07 06:58] LABS: Anion Gap 13 mmol/L; Blood Urea Nitrogen 35 mg/dL (9-20); Calcium 9.3 mg/dL (8.4-10.2); Carbon Dioxide 24 mmol/L (22-30); Chloride 101 mmol/L (98-107); Glucose 102 mg/dL (74-99); Non-African American GFR(MDRD) >60 (>60 ml/min/1.73 sqM); Potassium 3.8 mmol/L (3.5-5.1); Sodium 138 mmol/L (137-145)
[2016-11-07] MEDS: hydrALAZINE HCL 50 MG TAB PO SCH (09:26)
[2016-11-07] MEDS: METOPROLOL TARTRATE 50 MG TAB PO SCH ×2 (09:26→20:19)
[2016-11-07] MEDS: HYDROcodone/APAP 10-325MG 1 EACH TAB PO SCH ×3 (09:26→21:15)
[2016-11-07] MEDS: ISOSORBIDE DINITRATE 10 MG TAB PO SCH ×3 (09:26→21:15)
[2016-11-07] MEDS: POTASSIUM CHLORIDE ER 20 MEQ TAB.ER PO SCH ×2 (09:26→12:51)
[2016-11-07] MEDS: FERROUS SULFATE 325 MG TAB PO SCH ×2 (09:27→20:19)
[2016-11-07] MEDS: FUROSEMIDE 40 MG TAB PO SCH ×2 (09:27→17:24)
[2016-11-07] MEDS: ASPIRIN 81 MG CHEW PO SCH (09:27)
[2016-11-07] MEDS: SERTRALINE 50 MG TAB PO SCH (09:27)
--- NOTE | 2016-11-07 11:22 | P.PN ---
Progress Note - Text Patient interviewed and examined, please see Dr. coffman's note. Patient is doing better on hydralazine and nitrates heart rates are within normal range blood pressure 138/80 mmHg. Potassium 3.8. I'm not convinced that he has an angiotensin receptor nadira ALLERGY. I also think that he has an increased intake of potassium rich foods bursting his hyperkalemia. I would like to try and dressed up at the lowest dose and I spoke to pharmacy about it. I will reduce the dose of hydralazine to 25 mg 3 times a day but will continue isosorbide for now. The combination of hydralazine and nitrates resulted in improvement and yesterday via switched him to by mouth Lasix
--- NOTE | 2016-11-07 12:16 | P.PN ---
Subjective Principal diagnosis: Congestive heart failure This is a 60-year-old gentleman who follows regularly with Dr. VC Osman in the office. He has a known history of paroxysmal atrial fibrillation , coronary artery disease with prior bypass in 1996, TIA, hypertension, hyperlipidemia, prior myocardial infarctions, ischemic cardiomyopathy with prior AICD implant AAA with stenting at [facility], most recent cardiac catheterization was performed in June of this year which revealed a patent SANTORO graft to the LAD, saphenous vein graft to the obtuse marginal, diagonal, and RCA are all occluded. Maximal medical therapy was advised at that time. Patient also underwent an echocardiogram with Doppler study in June of this year which revealed an ejection fraction of less than 20%. Patient presents to the hospital with symptoms of progressively worsening shortness of breath. He states that the shortness of breath is occurring at rest but much more severe with exertion. He does weigh himself every day, and states he is actually lost weight and not increased in weight. He has had no peripheral edema. Positive PND and orthopnea. Chest x-ray on admission revealed interval worsening of cardiomegaly, bilateral perihilar infiltrates and worsening congestive heart failure. EKG shows a normal sinus rhythm with inferior and anterior Q waves and nonspecific ST-T wave changes. White blood cell count 9.9, hemoglobin 13.3, platelet count 196, d-dimer 3.26. Potassium 4.7, BUN 24, creatinine 1.0. Troponins 0.013, 0.020. BNP level 11,300. Blood pressure on arrival 144, Heart rate in the 50s. 94% on room air. At the time of my examination this morning, patient is sitting up in bed, denies any shortness of breath. 11/06/2016 Patient seen and examined this morning, states he is feeling much better overall. Complaining of a mild headache. Breathing is stable. Potassium 3.8, BUN 33, creatinine 1.1. 11/07/2016 Patient seen and examined this morning, headache improved today, feeling well overall. Dr. Maria had a lengthy discussion with the patient regarding initiating Entresto. We will have the dietitian, and educate the patient regarding low potassium diet and foods that are high in potassium that he needs to avoid. Patient has documented that he has an ALLERGY to angiotensin blockers , however it appears that he had some type of cleaning agent on his hands at the time of the ALLERGY and is unsure of whether it was the Benicar or not. For this reason we will keep the patient in the hospital and start him on Entresto. Objective - Vital Signs Vital signs: Vital Signs Temp 97.0 F L 11/07/16 08:00 Pulse 66 11/07/16 08:00 Resp 16 11/07/16 04:00 BP 138/80 11/07/16 08:00 Pulse Ox 96 11/07/16 08:00 Intake & Output 11/06/16 11/07/16 11/07/16 18:59 06:59 18:59 Intake Total 660 237 Output Total 603 300 Balance 57 -63 Weight 87 kg Intake: Oral 660 237 Output: Urine 600 300 Stool 3 Other: Voiding Method Toilet # Voids 1 # Bowel Movements 1 - Exam PHYSICAL EXAMINATION: HEENT: Head is atraumatic, normocephalic. Pupils equal, round. Neck is supple. There is no elevated jugular venous pressure. HEART EXAMINATION: Heart S1, S2 normal. No murmur or gallop heard. CHEST EXAMINATION: Lungs are clear with improvement in air entry to the bases. ABDOMEN: Soft, obese, nontender. Bowel sounds are heard. No organomegaly noted. EXTREMITIES: 2+ peripheral pulses with no evidence of peripheral edema and no calf tenderness noted]. NEUROLOGIC [patient is awake, alert and oriented -3.] . - Labs CBC & Chem 7: 11/06/16 06:09 11/07/16 05:47 Labs: Abnormal Lab Results - Last 24 Hours (Table) 11/07/16 11/07/16 Range/Units 00:22 05:47 Potassium 3.4 L (3.5-5.1) mmol/L BUN 35 H (9-20) mg/dL Glucose 102 H (74-99) mg/dL Microbiology - Last 24 Hours (Table) 11/04/16 22:25 Blood Culture - Preliminary Blood No Growth after 48 hours Assessment and Plan Plan: Assessment and plan #1 symptoms of progressively worsening shortness of breath, mostly exertional in nature, positive PND and orthopnea. Systolic congestive heart failure acute on chronic. #2 known history of coronary artery disease with prior bypass surgery in 1996, most recent cardiac catheterization was performed in June of this year which revealed a patent SANTORO to the LAD, saphenous vein graft to the OM and diagonal as well as RCA totally occluded. #3 ischemic cardiomyopathy with prior AICD implant #4 paroxysmal atrial fibrillation, on Xarelto for anticoagulation # 5 hypertension #6 hyperlipidemia #7 AAA with prior stenting #8 prior TIA Plan We will continue current medications and add Entresto to his medication regime. Decrease hydralazine to 25 mg one tablet by mouth 3 times a day. Request dietitian to educate the patient regarding a low potassium diet. Monitor blood pressure closely. DNP note has been reviewed, I agree with a documented findings and plan of care. Patient was seen and examined.
[2016-11-07] MEDS ORDERED: CYANOCOBALAMIN 1,000 MCG/ML 1 ML VIAL IM ONE (12:30)
--- NOTE | 2016-11-07 12:42 | P.PN ---
Subjective Principal diagnosis: Acute congestive heart failure on the top of chronic systolic congestive heart failure. This is dictation on progress note date of service 11/[address] Jayme Arshad FACP. Patient seen and evaluated today and discussed with him the plan. Patient seen by obedience trainer who discussed with the patient today a trial of using enterosto medication in the small dose twice a day with the monitoring of his electrolytes for hyperkalemia as he believed the hyperkalemia possibility to increase potassium in the diet. Patient improved his congestive heart failure able to ambulate his paroxysmal nocturnal dyspnea is resolved and the dyspnea with ambulation improved in general. He has no JVD and he had no edema of the lower extremities as well as no hepatojugular reflux. Patient however he has ejection fraction 20-25% with global hypokinesia with the previous MIs as well as history of coronary artery bypass graft 4. Patient also has advanced atherosclerotic heart disease and vascular disease with a history of aneurysm of the abdominal aorta has been treated by stenting at telemetry for the hospital. 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 Underlying history of hyper lipidemia and dilated cardiomyopathy. History of chronic atrial fibrillation paroxysmal on anti-coagulant chronically. Physical examination today Conscious alert oriented 3 ambulatory no lateralizing sign. HEENT negative Neck: Supple no JVD no thyromegaly no lymphadenopathy trachea midline. Chest: He had basilar rales with the associated with congestive heart failure has been significantly improved but still present. Left upper quadrant AICD with a history of chronic atrial fibrillation. Heart: Currently regular sinus rhythm with the history of A. fib paroxysmal, cardiomegaly, ejection fraction 20-25% by recent echo read by Dr. Squires. With global hypokinesia. Abdomen soft positive bowel sounds no organ enlargement with a history of a splenectomy. Extremities: No edema. Pulses good perfusion. With a history of stenting the abdominal aorta through the right groin , at [facility]. Neuro: No tremor no ataxia creatinine nurse 2-12 intact ambulatory no lateralizing sign. Assessment: #1 congestive heart failure acute systolic in nature on the top of chronic. #2 global hypokinesia with ejection fraction 20-25%. #3 history of splenectomy. #4 history of abdominal aortic aneurysm stent. 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 Coronary artery disease atherosclerotic heart disease status post 4 vessel bypass graft. Plan: #1 patient was plan for discharge today however with the use of medication new , entersto by Dr. Maria patient will be staying for probably 48 hours to 24 for monitoring the adverse effects on the patient after he adjusted his hydralazine to 25 mg 3 times a day added to the nitroglycerin with clinical improvement as he believed that patient hyperkalemia associated with the Steve/ arm mainly due to effect of increased potassium intake, dietitian was consulted to advise the patient with the diet and laboratory tomorrow will be checked for monitoring his electrolytes. Objective - Vital Signs Vital signs: Vital Signs Temp 97.0 F L 11/07/16 08:00 Pulse 66 11/07/16 08:00 Resp 16 11/07/16 04:00 BP 138/80 11/07/16 08:00 Pulse Ox 96 11/07/16 08:00 Intake & Output 11/06/16 11/07/16 11/07/16 18:59 06:59 18:59 Intake Total 660 237 Output Total 603 300 Balance 57 -63 Weight 87 kg Intake: Oral 660 237 Output: Urine 600 300 Stool 3 Other: Voiding Method Toilet # Voids 1 # Bowel Movements 1 - Labs CBC & Chem 7: 11/06/16 06:09 11/07/16 05:47 Labs: Abnormal Lab Results - Last 24 Hours (Table) 11/07/16 11/07/16 Range/Units 00:22 05:47 Potassium 3.4 L (3.5-5.1) mmol/L BUN 35 H (9-20) mg/dL Glucose 102 H (74-99) mg/dL Microbiology - Last 24 Hours (Table) 11/04/16 22:25 Blood Culture - Preliminary Blood No Growth after 48 hours
[2016-11-07] MEDS: SACUBITRIL/VALSARTAN 24 MG-26 MG TABLET PO SCH ×2 (12:51→20:19)
[2016-11-07] MEDS ORDERED: hydrALAZINE HCL 25 MG TAB PO SCH (16:00)
[2016-11-07] MEDS: hydrALAZINE HCL 25 MG TAB PO SCH ×2 (17:23→21:15)
[2016-11-07] MEDS: RIVAROXABAN 10 MG TAB PO SCH (17:24)
[2016-11-07] MEDS: ATORVASTATIN 40 MG TAB PO SCH (20:19)
[2016-11-08 06:55] LABS: Calcium 9.4 mg/dL (8.4-10.2); Magnesium 2.1 mg/dL (1.6-2.3); Potassium 4.3 mmol/L (3.5-5.1); Total Bilirubin 0.8 mg/dL (0.2-1.3); Total Protein 6.8 g/dL (6.3-8.2)
[2016-11-08] MEDS: HYDROcodone/APAP 10-325MG 1 EACH TAB PO SCH ×3 (08:02→21:50)
[2016-11-08] MEDS: FUROSEMIDE 40 MG TAB PO SCH ×2 (08:09→15:57)
[2016-11-08] MEDS: SACUBITRIL/VALSARTAN 24 MG-26 MG TABLET PO SCH ×2 (08:09→19:58)
[2016-11-08] MEDS: ASPIRIN 81 MG CHEW PO SCH (08:10)
[2016-11-08] MEDS: FERROUS SULFATE 325 MG TAB PO SCH ×2 (08:10→19:58)
[2016-11-08] MEDS: SERTRALINE 50 MG TAB PO SCH (08:10)
[2016-11-08] MEDS: METOPROLOL TARTRATE 50 MG TAB PO SCH ×2 (11:19→19:58)
--- NOTE | 2016-11-08 11:55 | P.PN ---
Subjective Principal diagnosis: Congestive heart failure This is a 60-year-old gentleman who follows regularly with Dr. VC Osman in the office. He has a known history of paroxysmal atrial fibrillation , coronary artery disease with prior bypass in 1996, TIA, hypertension, hyperlipidemia, prior myocardial infarctions, ischemic cardiomyopathy with prior AICD implant AAA with stenting at [facility], most recent cardiac catheterization was performed in June of this year which revealed a patent SANTORO graft to the LAD, saphenous vein graft to the obtuse marginal, diagonal, and RCA are all occluded. Maximal medical therapy was advised at that time. Patient also underwent an echocardiogram with Doppler study in June of this year which revealed an ejection fraction of less than 20%. Patient presents to the hospital with symptoms of progressively worsening shortness of breath. He states that the shortness of breath is occurring at rest but much more severe with exertion. He does weigh himself every day, and states he is actually lost weight and not increased in weight. He has had no peripheral edema. Positive PND and orthopnea. Chest x-ray on admission revealed interval worsening of cardiomegaly, bilateral perihilar infiltrates and worsening congestive heart failure. EKG shows a normal sinus rhythm with inferior and anterior Q waves and nonspecific ST-T wave changes. White blood cell count 9.9, hemoglobin 13.3, platelet count 196, d-dimer 3.26. Potassium 4.7, BUN 24, creatinine 1.0. Troponins 0.013, 0.020. BNP level 11,300. Blood pressure on arrival 144, Heart rate in the 50s. 94% on room air. At the time of my examination this morning, patient is sitting up in bed, denies any shortness of breath. 11/06/2016 Patient seen and examined this morning, states he is feeling much better overall. Complaining of a mild headache. Breathing is stable. Potassium 3.8, BUN 33, creatinine 1.1. 11/07/2016 Patient seen and examined this morning, headache improved today, feeling well overall. Dr. Maria had a lengthy discussion with the patient regarding initiating Entresto. We will have the dietitian, and educate the patient regarding low potassium diet and foods that are high in potassium that he needs to avoid. Patient has documented that he has an ALLERGY to angiotensin blockers , however it appears that he had some type of cleaning agent on his hands at the time of the ALLERGY and is unsure of whether it was the Benicar or not. For this reason we will keep the patient in the hospital and start him on Entresto. 11/08/2016 Patient seen and examined this morning, feeling well overall. Blood pressure was running a little on the low side, nitrates and hydralazine were discontinued this morning. Blood pressure 106/60 this morning. Patient denies any dizziness or lightheadedness. No shortness of breath. Objective - Vital Signs Vital signs: Vital Signs Temp 96.8 F L 11/08/16 11:16 Pulse 50 L 11/08/16 11:16 Resp 16 11/08/16 11:16 BP 98/60 11/08/16 11:16 Pulse Ox 96 11/08/16 11:16 Intake & Output 11/07/16 11/08/16 11/08/16 18:59 06:59 18:59 Intake Total 754 Output Total 900 Balance -146 Weight 87.7 kg Intake: Oral 754 Blood Product 0 Output: Urine 900 Other: Voiding Method Toilet Toilet Urinal # Voids 1 1 # Bowel Movements 1 - Exam PHYSICAL EXAMINATION: HEENT: Head is atraumatic, normocephalic. Pupils equal, round. Neck is supple. There is no elevated jugular venous pressure. HEART EXAMINATION: Heart S1, S2 normal. No murmur or gallop heard. CHEST EXAMINATION: Lungs are clear with improvement in air entry to the bases. ABDOMEN: Soft, obese, nontender. Bowel sounds are heard. No organomegaly noted. EXTREMITIES: 2+ peripheral pulses with no evidence of peripheral edema and no calf tenderness noted]. NEUROLOGIC [patient is awake, alert and oriented -3.] . - Labs CBC & Chem 7: 11/06/16 06:09 11/08/16 06:06 Labs: Abnormal Lab Results - Last 24 Hours (Table) 11/08/16 Range/Units 06:06 BUN 41 H (9-20) mg/dL Creatinine 1.60 H (0.66-1.25) mg/dL Microbiology - Last 24 Hours (Table) 11/04/16 22:25 Blood Culture - Preliminary Blood No Growth after 72 hours Assessment and Plan Plan: Assessment and plan #1 symptoms of progressively worsening shortness of breath, mostly exertional in nature, positive PND and orthopnea. Systolic congestive heart failure acute on chronic. #2 known history of coronary artery disease with prior bypass surgery in 1996, most recent cardiac catheterization was performed in June of this year which revealed a patent SANTORO to the LAD, saphenous vein graft to the OM and diagonal as well as RCA totally occluded. #3 ischemic cardiomyopathy with prior AICD implant #4 paroxysmal atrial fibrillation, on Xarelto for anticoagulation # 5 hypertension #6 hyperlipidemia #7 AAA with prior stenting #8 prior TIA Plan We'll discontinue the patient's nitrates and hydralazine. Continue Entresto. Plan for possible discharge home in the morning if stable. DNP note has been reviewed, I agree with a documented findings and plan of care. Patient was seen and examined.
--- NOTE | 2016-11-08 12:33 | P.PN ---
Subjective Principal diagnosis: Acute congestive heart failure on the top of chronic systolic congestive heart failure. This is dictation date of service 11/08/2016, dictating progress note by Dr. bernarda Delacruz M.D. [facility]. Patient seen and evaluated today, he has been seen by Dr. Gomez this morning and Dr. España as well and they discussed with him the plan they discontinued the hydralazine and nitrate, and continued with entersto he will. Still monitoring the patient with repeat laboratory in a.m. Today his BUNs 41 and creatinine 1.6 which has been increased probably due to the ABDOULAYE inhibitor with the decrease the glomerular filtration rate, as well as with hypotension as his blood pressure now dropping below 100 however patient stable generally. On the physical exam: Patient is conscious alert oriented 3 no acute respiratory distress neck was supple no JVD no thyromegaly no lymphadenopathy. Chest minimal rales on the basis with the underlying atelectasis with markedly improvement in his breathing with resolution of the PND as well as dyspnea. Heart: Regular sinus rhythm with a history of chronic atrial fibrillation paroxysmal on xarelto. AICD in the left infraclavicular. Abdomen soft positive bowel sounds history of splenectomy Extremities no edema and positive pulses bilateral No neurological deficit. Last hemoglobin is 14 and hematocrit 40.5 on 11/05/2016. His on November 08 his potassium 4.3 and patient advised to be on restrictive POTASSIUM diet to avoid hyperkalemia. Blood culture was negative. Assessment and plan: Acute congestive heart failure systolic on the top of chronic. #2 ischemic cardiomyopathy with ejection fraction 20-25%. #3 no history of coronary artery disease with the bypass graft 1996 with the most recent catheterization in June 2016 revealed patent chapman to LAD, saphenous vein graft to OM and diagonal right coronary artery totally occluded. #4 chronic paroxysmal atrial fibrillation with on chronic anticoagulation Xarelto #5 normotensive with a history of hypertension and hypertensive heart disease. #6 hyperlipidemia #7 AAA stenting at [facility]. #8 . Prior CVA associated with the stroke to the left eye resulted in diplopia with the probability of lacunar infarction. #9 vitamin B12 deficiency received 1 dose of vitamin B 12 1000 g #10, normal creatinine 1.6 with the underlying effect of the ABDOULAYE inhibitor. Vital signs stable temperature 96.8 and pulse 50 PEEP per minute and respiratory rate 16/m, blood pressure 98/60 with a mean of 72 and pulse ox 96% on room air We'll continue current medication and obtain laboratory in a.m. [facility] with the possible discharge home within the next 24 hour period Objective - Vital Signs Vital signs: Vital Signs Temp 96.8 F L 11/08/16 11:16 Pulse 50 L 11/08/16 11:16 Resp 16 11/08/16 11:16 BP 98/60 11/08/16 11:16 Pulse Ox 96 11/08/16 11:16 Intake & Output 11/07/16 11/08/16 11/08/16 18:59 06:59 18:59 Intake Total 754 300 Output Total 900 Balance -146 300 Weight 87.7 kg Intake: Oral 754 300 Blood Product 0 Output: Urine 900 Other: Voiding Method Toilet Toilet Urinal # Voids 1 1 # Bowel Movements 1 - Labs CBC & Chem 7: 11/06/16 06:09 11/08/16 06:06 Labs: Abnormal Lab Results - Last 24 Hours (Table) 11/08/16 Range/Units 06:06 BUN 41 H (9-20) mg/dL Creatinine 1.60 H (0.66-1.25) mg/dL Microbiology - Last 24 Hours (Table) 11/04/16 22:25 Blood Culture - Preliminary Blood No Growth after 72 hours
[2016-11-08] MEDS: RIVAROXABAN 10 MG TAB PO SCH (18:20)
[2016-11-08] MEDS: ATORVASTATIN 40 MG TAB PO SCH (19:58)
[2016-11-09 06:16] LABS: Anion Gap 9 mmol/L; Blood Urea Nitrogen 37 mg/dL (9-20); Calcium 8.9 mg/dL (8.4-10.2); Carbon Dioxide 27 mmol/L (22-30); Chloride 102 mmol/L (98-107); Glucose 90 mg/dL (74-99); Non-African American GFR(MDRD) >60 (>60 ml/min/1.73 sqM); Potassium 4.3 mmol/L (3.5-5.1); Sodium 138 mmol/L (137-145)
[2016-11-09 08:23] VITALS: RESP 16; TEMP 97.2
[2016-11-09] MEDS: SACUBITRIL/VALSARTAN 24 MG-26 MG TABLET PO SCH (08:27)
[2016-11-09] MEDS: FERROUS SULFATE 325 MG TAB PO SCH (08:27)
[2016-11-09] MEDS: ASPIRIN 81 MG CHEW PO SCH (08:27)
[2016-11-09] MEDS: SERTRALINE 50 MG TAB PO SCH (08:27)
[2016-11-09] MEDS: FUROSEMIDE 40 MG TAB PO SCH (08:28)
[2016-11-09] MEDS: HYDROcodone/APAP 10-325MG 1 EACH TAB PO SCH (08:28)
[2016-11-09 11:22] VITALS: BP 114/60; PULSE 52
[2016-11-09] MEDS: METOPROLOL TARTRATE 50 MG TAB PO SCH (11:22)
--- NOTE | 2016-11-09 11:40 | P.PN ---
Subjective Principal diagnosis: Patient is doing very well. He denies any chest discomfort no undue shortness of breath he sitting up comfortably in a chair he looks very comfortable His heart failure symptoms have improved significantly initially with hydralazine and nitrates and lower intestinal. He does NOT have ALLERGY to the angiotensin receptor blockers it was not angiotensin receptor blockers it causes ALLERGY to some other chemical. He has been on on entresto now for 2 days and he has not had any symptoms or any ALLERGIC reactions. On examination his blood pressure is normal. He is not orthostatic. Heart rates in the 50s no JVD no thyromegaly Heart sounds S1 and S2 are soft no murmurs or gallops Breath sounds are clear no rhonchi no crackles Extremities are warm no edema Impression Severe LV dysfunction with advanced heart failure acute and chronic systolic, significant improvement on current treatment Plan Continue ENTRESTO Continue beta blockers Continue diuretics May go home today and follow up with primary gold letterer Objective - Vital Signs Vital signs: Vital Signs Temp 97.2 F L 11/09/16 08:00 Pulse 52 L 11/09/16 11:21 Resp 16 11/09/16 11:21 BP 114/60 11/09/16 11:21 Pulse Ox 98 11/09/16 11:21 Intake & Output 11/08/16 11/09/16 11/09/16 18:59 06:59 18:59 Intake Total 600 510 430 Balance 600 510 430 Weight 88.2 kg Intake: IV 30 10 Invasive Line 1 30 10 Oral 600 480 420 Other: Voiding Method Toilet Toilet Toilet Urinal Urinal Urinal # Voids 1 2 # Bowel Movements 1 - Labs CBC & Chem 7: 11/06/16 06:09 11/09/16 05:35 Labs: Abnormal Lab Results - Last 24 Hours (Table) 11/09/16 Range/Units 05:35 BUN 37 H (9-20) mg/dL Microbiology - Last 24 Hours (Table) 11/04/16 22:25 Blood Culture - Preliminary Blood No Growth after 96 hours
--- NOTE | 2016-11-09 13:17 | P.DS ---
Providers Date of admission: 11/05/16 00:20 Attending physician: Wilmer Massey Consults: 11/05/16 00:20 Consult Physician Routine Consulting Provider: Keo Squires Consult Reason/Comments: chf Do you want consulting provider notified?: Yes Primary care physician: Wilmer Massey This is a dictation on discharge summary date of service 11/09/2016, attending physician dictating by Dr. Shilpa Arshad [facility] after patient cleared for discharge by Dr. Paiz. Date of discharge 11/09/2016 Date of admission 11/05/2016. Discharge summary diagnoses #1 acute congestive heart failure systolic. On top of chronic. #2 ischemic cardiomyopathy with severely impaired impairment of left ventricular function with the ejection fraction 20 to 25% #3 coronary artery disease atherosclerotic heart disease with the history of coronary artery bypass graft 4. #4 history of splenectomy. #5 history of chronic atrial fibrillation paroxysmal with the placement of AICD left infraclavicular, currently is sinus rhythm. Patient onXarelto for anticoagulation. #6 history of hyperkalemia with the increase potassium intake and thought association with the Steve and STEVE inhibitor receptor in, patient however able to tolerate the Enteresto orally with the monitoring the potassium, so far within normal range. 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 #7 vitamin B12 deficiency clinical with the underlying macrocytosis treated with vitamin B12 1000 g IM 1 dose to be followed in the office. Hospital presentation: Presented to the emergency room with the severe shortness of breath progressive over 2 days with orthopnea and PND found to be with congestive heart failure left sided due to impairment of the left ventricular function with the ejection fraction 20%. Patient subsequently admitted to the telemetry monitoring floor with the cardiology consultation. Hospital course: Patient diuresed first with IV Lasix followed by by mouth Lasix monitored seen by Dr. Arvizu cardiology. And followed for evidence of acute cardiac panel changes. Patient did well with the improvement adjustment of his medication and subsequently placed on entersto and monitored his electrolytes and potassium, patient did well and cleared for discharge by Dr. Paiz On discharge: Patient is conscious alert oriented 3 ambulatory no pain of the chest or any other areas no shortness of breath bleeding grade wants to go home and cleared by Dr. Arvizu crane chaser for discharge. HEENT was negative Neck was supple no JVD no thyromegaly no lymphadenopathy. Chest clear to auscultation and percussion no rales. Heart regular sinus rhythm with no evidence of decompensation at the time of discharge with a be surgical at [place] fibrillation as he has a chronic AF with the infraclavicular AICD with the cardiomegaly. Abdomen is soft positive bowel sound no organ enlargement with a history of splenectomy. Extremities no edema and on admission he has no edema in either with the underlying congestive heart failure was left sided. Good perfusion with good pulses Neurologically: Stable ambulatory. Assessment and plan: Patient will continue on the new medication Entersto dear Dr. Chencho garcia Dr. VC. His primary crane chaser will be following him in 1 week. I am the PCP and I will also see him next week. Discussed with the patient in detail plan of activity and also will repeat laboratory to be sure that his electrolytes within normal limit and continue to be within normal limits. Patient Condition at Discharge: Fair Plan - Discharge Summary New Discharge Prescriptions: New Furosemide [Lasix] 40 mg PO BID #60 tablet Sacubitril/Valsartan [Entresto 24 mg-26 mg Tablet] 1 each PO BID #60 tablet Discontinued Furosemide [Lasix] 20 mg PO DAILY No Action RX: Ferrous Sulfate [Iron (65 MG Elemental)] 325 mg PO BID RX: HYDROcodone/APAP 10-325MG [[place] 10-325] 1 tab PO TID RX: Atorvastatin [Lipitor] 40 mg PO HS RX: Nitroglycerin Sl Tabs [Nitrostat] 0.4 mg SUBLINGUAL Q5M PRN #75 tab PRN Reason: Chest Pain Sertraline [Zoloft] 50 mg PO DAILY Rivaroxaban [Xarelto] 20 mg PO W/SUPPER Metoprolol Tartrate [Lopressor] 50 mg PO BID Discharge Medication List RX: Ferrous Sulfate [Iron (65 MG Elemental)] 325 mg PO BID 12/14/14 [History] RX: Atorvastatin [Lipitor] 40 mg PO HS 04/09/15 [History] RX: HYDROcodone/APAP 10-325MG [[place] 10-325] 1 tab PO TID 04/09/15 [History] RX: Nitroglycerin Sl Tabs [Nitrostat] 0.4 mg SUBLINGUAL Q5M PRN #75 tab [Rx] Metoprolol Tartrate [Lopressor] 50 mg PO BID 10/05/16 [History] Rivaroxaban [Xarelto] 20 mg PO W/SUPPER 10/05/16 [History] Sertraline [Zoloft] 50 mg PO DAILY 10/05/16 [History] Furosemide [Lasix] 40 mg PO BID #60 tablet 11/09/16 [Rx] Sacubitril/Valsartan [Entresto 24 mg-26 mg Tablet] 1 each PO BID #60 tablet 04/26 [Rx] Follow up Appointment(s)/Referral(s): [facility], [NON-STAFF] - Glenn Osman MD [STAFF PHYSICIAN] - 1 Week Wilmer Massey MD [Primary Care Provider] - 1 Week Activity/Diet/Wound Care/Special Instructions: Script for Entresto in [facility] - free month coupon applied - greens picker at time of discharge Discharge Disposition: HOME WITH HOME HEALTH SERVICES
--- NOTE | 2016-11-11 16:07 | CE ---
CARDIAC ELECTROPHYSIOLOGY REPORT HISTORY: Salvatore Yates came in, he has a history of cardiomyopathy, he came in with acute on chronic congestive heart failure. He has a dual-chamber ICD. INTERROGATION: His ICD was interrogated. It is a Andrew OLMOS 2231-40, serial #[id number]. Battery current 11 microamps. Atrial pacing threshold 0.5 V at 0.5 milliseconds. P-waves 4.9 millivolts. Pacing impedance 480 ohms. The ventricular pacing threshold was 1 V at 0.5 milliseconds, R-wave 6.9 mV and pacing impedance 310 ohms. Shock impedance 47 ohms. The defibrillator was reprogrammed to 2 zones of therapy, VT zone at 176 beats per minute, VF zone at 214 beats per minute. Appropriate antitachycardia pacing, cardioversions, and defibrillation programmed. Pacing at DDDR 50 to 110 ppm. No VT or VF episodes noted. Atrial pacing 65%, ventricular pacing less than 1%. No alerts noted. MMODL / IJN: [id number] /
== END 2016-11-09 13:58 | disposition home health service (06) | DRG 293 ==
LOC: EC 21:29 → 6SEL 11-05 00:20
PROVIDERS: ADMIT Internal Medicine; ATTEND Internal Medicine
PROC: 4B02XTZ Measurement of Cardiac Defibrillator, External Approach (ICD-10-PCS; principal; 2016-11-05)
DX: I11.0 Hypertensive heart disease with heart failure (principal); I25.82 Chronic total occlusion of coronary artery; I95.9 Hypotension, unspecified; I42.0 Dilated cardiomyopathy; Z95.1 Presence of aortocoronary bypass graft; Z79.01 Long term (current) use of anticoagulants; I25.5 Ischemic cardiomyopathy; I50.23 Acute on chronic systolic (congestive) heart failure; I48.0 Paroxysmal atrial fibrillation; I48.2 Chronic atrial fibrillation; I25.10 Atherosclerotic heart disease of native coronary artery without angina pectoris; K21.9 Gastro-esophageal reflux disease without esophagitis; D75.89 Other specified diseases of blood and blood-forming organs; I71.4 Abdominal aortic aneurysm, without rupture; E53.8 Deficiency of other specified B group vitamins; R51 Headache; E78.5 Hyperlipidemia, unspecified; K44.9 Diaphragmatic hernia without obstruction or gangrene; I69.398 Other sequelae of cerebral infarction; I25.2 Old myocardial infarction; H53.2 Diplopia; T46.4X5A Adverse effect of angiotensin-converting-enzyme inhibitors, initial encounter; M19.90 Unspecified osteoarthritis, unspecified site; M51.36 Other intervertebral disc degeneration, lumbar region; M50.321 Other cervical disc degeneration at C4-C5 level; R63.4 Abnormal weight loss; F43.10 Post-traumatic stress disorder, unspecified; Z95.810 Presence of automatic (implantable) cardiac defibrillator; Z90.81 Acquired absence of spleen; Z82.49 Family history of ischemic heart disease and other diseases of the circulatory system; Z80.1 Family history of malignant neoplasm of trachea, bronchus and lung; Z87.891 Personal history of nicotine dependence; Z79.899 Other long term (current) drug therapy; Z87.442 Personal history of urinary calculi; Z79.891 Long term (current) use of opiate analgesic; Z71.3 Dietary counseling and surveillance; Z90.49 Acquired absence of other specified parts of digestive tract; Z82.3 Family history of stroke; Z88.8 Allergy status to other drugs, medicaments and biological substances; Z87.81 Personal history of (healed) traumatic fracture; Z87.828 Personal history of other (healed) physical injury and trauma; Z91.041 Radiographic dye allergy status; Z86.79 Personal history of other diseases of the circulatory system; Z86.2 Personal history of diseases of the blood and blood-forming organs and certain disorders involving the immune mechanism; Z95.828 Presence of other vascular implants and grafts; Z98.42 Cataract extraction status, left eye; Z98.41 Cataract extraction status, right eye; Z87.448 Personal history of other diseases of urinary system
CPT/HCPCS: 36415; 71020; 80048; 80053; 82550; 82553; 82607; 82746; 83735; 83880; 84132; 84443; 84484; 85025; 85379; 85610; 85730; 87040; 93005; 93306; 94760; 96374; 96376; 99285

== ENCOUNTER → 2016-11-27 | Outpatient (CLI) | payer OTHER ==
[2016-11-27 12:58] LABS: Anion Gap 10 mmol/L; Blood Urea Nitrogen 32 mg/dL (9-20); Calcium 9.9 mg/dL (8.4-10.2); Carbon Dioxide 29 mmol/L (22-30); Chloride 100 mmol/L (98-107); Glucose 106 mg/dL (74-99); Non-African American GFR(MDRD) 56 (>60 ml/min/1.73 sqM); Potassium 5.9 mmol/L (3.5-5.1); Sodium 139 mmol/L (137-145)
[2016-11-27 13:47] LABS: Vitamin B12 624 pg/mL (239-931)
== END | disposition home or self-care (01) ==
LOC: LABWHC1 11:15
PROVIDERS: ATTEND Internal Medicine
DX: E87.5 Hyperkalemia (principal); E53.8 Deficiency of other specified B group vitamins
CPT/HCPCS: 36415; 80048; 82607; 82746; 83880

== ENCOUNTER 2016-11-30 13:33 | Emergency (ER) | payer OTHER ==
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
[2016-11-30 14:42] LABS: Basophils # (A) 0.1 k/uL (0-0.2); Basophils % (A) 1 %; CH 33.7; CHCM 33.3; Eosinophils # (A) 0.3 k/uL (0-0.7); Eosinophils % (A) 3 %; HCT 39.3 % (39.0-53.0); HDW 2.44; HGB 13.3 gm/dL (13.0-17.5); Luc % (Auto) 4; Lymphocytes # (A) 3.4 k/uL (1.0-4.8); Lymphocytes % (A) 41 %; MCH 34.5 pg (25.0-35.0); MCHC 33.9 g/dL (31.0-37.0); MCV 101.8 fL (80.0-100.0); Macrocytosis Slight; Monocytes # (A) 0.6 k/uL (0-1.0); Monocytes % (A) 7 %; Neutrophils # (A) 3.6 k/uL (1.3-7.7); Neutrophils % (A) 44 %; RBC 3.86 m/uL (4.30-5.90); WBC 8.2 k/uL (3.8-10.6); WBC (Perox) 8.32
[2016-11-30 14:54] LABS: ALT 33 U/L (21-72); AST 27 U/L (17-59); Alkaline Phosphatase 85 U/L (38-126); Blood Urea Nitrogen 37 mg/dL (9-20); Calcium 9.4 mg/dL (8.4-10.2); Carbon Dioxide 20 mmol/L (22-30); Glucose 99 mg/dL (74-99); Magnesium 1.8 mg/dL (1.6-2.3); Non-African American GFR(MDRD) 51 (>60 ml/min/1.73 sqM); Potassium 4.5 mmol/L (3.5-5.1); Sodium 137 mmol/L (137-145)
[2016-11-30 14:55] LABS: Anion Gap 14 mmol/L; Chloride 103 mmol/L (98-107)
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
[2016-11-30 15:40] VITALS: BP 116/69; PULSE 50; RESP 20; TEMP 97
== END 2016-11-30 15:41 | disposition home or self-care (01) ==
LOC: EC 13:33
DX: I95.9 Hypotension, unspecified (principal); I25.10 Atherosclerotic heart disease of native coronary artery without angina pectoris; E78.5 Hyperlipidemia, unspecified; I10 Essential (primary) hypertension; I25.2 Old myocardial infarction; M19.90 Unspecified osteoarthritis, unspecified site; K21.9 Gastro-esophageal reflux disease without esophagitis; I48.91 Unspecified atrial fibrillation; F43.10 Post-traumatic stress disorder, unspecified; Z87.891 Personal history of nicotine dependence; Z79.899 Other long term (current) drug therapy; Z79.891 Long term (current) use of opiate analgesic; Z91.041 Radiographic dye allergy status; Z88.8 Allergy status to other drugs, medicaments and biological substances; Z95.810 Presence of automatic (implantable) cardiac defibrillator; Z98.61 Coronary angioplasty status
CPT/HCPCS: 36415; 71020; 80053; 83735; 83880; 84484; 85025; 93005; 99285

== ENCOUNTER 2017-02-08 04:50 | Emergency (ER) | payer OTHER ==
[2017-02-08] MEDS ORDERED: LIDOCAINE/EPINEPHR/TETRACAINE 5 ML BOTTLE TOPICAL ONE (05:18)
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
[2017-02-08 05:57] VITALS: BP 133/60; PULSE 55; RESP 16; TEMP 98.2
== END 2017-02-08 05:57 | disposition home or self-care (01) ==
LOC: EC 04:50
DX: T81.89XA Other complications of procedures, not elsewhere classified, initial encounter (principal); I48.91 Unspecified atrial fibrillation; I25.119 Atherosclerotic heart disease of native coronary artery with unspecified angina pectoris; K21.9 Gastro-esophageal reflux disease without esophagitis; E78.5 Hyperlipidemia, unspecified; I10 Essential (primary) hypertension; I25.2 Old myocardial infarction; M19.90 Unspecified osteoarthritis, unspecified site; Z86.73 Personal history of transient ischemic attack (TIA), and cerebral infarction without residual deficits; Z87.891 Personal history of nicotine dependence; Z79.01 Long term (current) use of anticoagulants; Z79.899 Other long term (current) drug therapy; Z88.8 Allergy status to other drugs, medicaments and biological substances; Z91.041 Radiographic dye allergy status; Z98.818 Other dental procedure status
CPT/HCPCS: 99282

== ENCOUNTER 2017-02-25 10:45 | Observation (INO) | payer OTHER ==
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
[2017-02-25 12:38] LABS: ALT 33 U/L (21-72); AST 25 U/L (17-59); Albumin 4.2 g/dL (3.5-5.0); Alkaline Phosphatase 84 U/L (38-126); Anion Gap 11 mmol/L; Blood Urea Nitrogen 27 mg/dL (9-20); Calcium 9.5 mg/dL (8.4-10.2); Carbon Dioxide 29 mmol/L (22-30); Chloride 102 mmol/L (98-107); Glucose 104 mg/dL (74-99); Magnesium 2.1 mg/dL (1.6-2.3); Potassium 4.8 mmol/L (3.5-5.1); Sodium 142 mmol/L (137-145); Total Bilirubin 0.9 mg/dL (0.2-1.3); Total Protein 7.4 g/dL (6.3-8.2)
[2017-02-25 12:40] LABS: Basophils # (A) 0.1 k/uL (0-0.2); Basophils % (A) 1 %; Eosinophils # (A) 0.2 k/uL (0-0.7); Eosinophils % (A) 3 %; HCT 41.9 % (39.0-53.0); HGB 13.8 gm/dL (13.0-17.5); Lymphocytes # (A) 4.3 k/uL (1.0-4.8); Lymphocytes % (A) 51 %; MCH 32.4 pg (25.0-35.0); MCHC 32.9 g/dL (31.0-37.0); MCV 98.5 fL (80.0-100.0); Mean Platelet Volume 7.6; Monocytes # (A) 0.7 k/uL (0-1.0); Monocytes % (A) 8 %; Neutrophils # (A) 2.9 k/uL (1.3-7.7); Neutrophils % (A) 34 %; Platelet Count 245 k/uL (150-450); RBC 4.25 m/uL (4.30-5.90); RDW 13.1 % (11.5-15.5); WBC 8.6 k/uL (3.8-10.6)
[2017-02-25 12:42] LABS: INR 1.3 (<1.2); Partial Thromboplastin Time 27.3 sec (22.0-30.0); Prothrombin Time 12.1 sec (9.0-12.0)
[2017-02-25 13:02] LABS: Creatine Kinase MB 0.9 ng/mL (0.0-2.4); Poikilocytosis (M) Present; Troponin I 0.015 ng/mL (0.000-0.034)
--- NOTE | 2017-02-25 13:02 | XR ---
EXAMINATION TYPE: XR chest 2V DATE OF EXAM: 02/25/2017 COMPARISON: 11/30/2016 TECHNIQUE: PA and lateral views submitted. HISTORY: Rectal bleeding, pain FINDINGS: The lungs are clear and there is no pneumothorax, pleural effusion, or focal pneumonia. Cardiac dev ice and rib cage deformities noted. Arthropathy of the shoulders. Heart is prominent. Degenerative ch gilbert of the spine. IVC filter noted. Pleural-based thickening along the left lower lobe is stable. IMPRESSION: 1. Subsegmental consolidation and pleural based thickening along the left lower lobe is stable from p rior exam..
[2017-02-25 13:03] LABS: Anisocytosis (M) Present
[2017-02-25] MEDS ORDERED: PANTOPRAZOLE 40 MG/10 ML VIAL IVP STA (13:35)
[2017-02-25] MEDS ORDERED: NALOXONE 0.4 MG/ML 1 ML VIAL IV PRN (13:36)
[2017-02-25 17:22] VITALS: RESP 16
[2017-02-25] MEDS: HYDROcodone/APAP 10-325MG 1 EACH TAB PO PRN (17:38)
[2017-02-25] MEDS: FERROUS SULFATE 325 MG TAB PO SCH (17:38)
[2017-02-25] MEDS: FUROSEMIDE 40 MG TAB PO SCH (17:39)
[2017-02-25] MEDS ORDERED: NITROGLYCERIN SL TABS 0.4 MG TAB SUBLINGUAL PRN (18:49)
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
[2017-02-25 20:22] LABS: HCT 41.6 % (39.0-53.0); HGB 13.3 gm/dL (13.0-17.5); MCV 103.2 fL (80.0-100.0); Macrocytosis Slight; Mean Platelet Volume 8.3; Platelet Count 222 k/uL (150-450); RBC 4.04 m/uL (4.30-5.90); RDW 13.1 % (11.5-15.5); WBC 10.1 k/uL (3.8-10.6)
[2017-02-25] MEDS: ATORVASTATIN 40 MG TAB PO SCH (20:23)
[2017-02-25] MEDS: METOPROLOL TARTRATE 50 MG TAB PO SCH (20:23)
--- NOTE | 2017-02-25 20:23 | HP ---
HISTORY AND PHYSICAL DATE OF ADMISSION: 02/25/2017 CHIEF COMPLAINT: Presented to the emergency room with GI bleeding that started on until today, intermittent. HISTORY OF PRESENT ILLNESS: The patient arrived to the emergency room with a wheelchair and with the underlying history of atrial fibrillation with anticoagulation with Xarelto 20 mg once daily, and he felt not right, heaviness, weakness of his upper and lower extremities, but he was fatigued and but he has no shortness of breath. He is able to ambulate. No cough, no fever, no chills, and started on . He had a bright red in his bowel movement and continued on Friday. Friday start to be resolving. Friday resolved. However Friday started again and Friday started to continue bright red blood in the bowel movement. So with this finding, he become uncomfortable, came to the emergency room and they did a rectal exam and found bright red blood. Subsequently, patient admitted with GI bleeding and he is on Xarelto and the Xarelto has been withheld for today until seen tomorrow by the Gastroenterology and Cardiology to assess if there is need of lower doses of the Xarelto or needs also for lower endoscopy as well or watching the patient without the anticoagulation. The patient otherwise he feels fine and he has no other complaints and he said that he has no abdominal pain. Prior to that, any other complaint. MEDICATION: He has a medication of losartan for hypertension 25 mg daily, omega-3 fatty acids and fish oil 1000 mg soft gel 1 capsule daily. He is on tumeric root extract 500 mg p.o. daily. He is on Co Q10 100 mg daily. He is also on nitroglycerin sublinguals 0.4 mg p.r.n. and flutamide 40 mg b.i.d. ALLERGY: He has ALLERGY TO BENICAR. The other name for it olmesartan. He has allergic to IODINE with the dyspnea and all OLMESARTAN calls rash and hives. The IODINATED CONTRAST caused dyspnea and LISINOPRIL caused cough and SIMVASTATIN caused gout. REVIEW OF SYSTEMS: On reviewing of system his neuropsychiatry was negative. The GI he has blood in the stool with the hematochezia and GI bleeding. No abdominal pain. No nausea, vomiting. No diarrhea and no tenesmus. On the , no dysuria or hematuria. On the cardiovascular, no chest pain. Currently, his heart rate is regular sinus. However, he flipped and had a pacemaker. CHEST: Clear and no wheezes, no rhonchi and no evidence of acute congestive heart failure. However, he has a BNP chronically elevated because of the dilatation of the atrium with the ischemic cardiomyopathy, chronic. He had on the other review of system otherwise no finding with review of 14 points. PAST MEDICAL HISTORY: He had history of atrial fibrillation. A pacemaker left infraclavicular, coronary artery disease, atherosclerotic heart disease. CVA in the past and TIA and GERD disease, hyperlipidemia, hypertension, memory impairment, myocardial infarction, and osteoarthritis. He had history of diplopia and aortic aneurysm 4.3 cm and he had surgery in [facility] at that time with the stent. He has degenerative disc disease of cervical spine and he had enlarged heart and cyst on the kidney and history of nephrolithiasis, which is not present at this time. On the EKG that done through the emergency room was atrial paced rhythm with the ventricular rate 55 beats per minute. PHYSICAL EXAMINATION: The patient is conscious, alert, oriented x3. His vital signs indicating temperature 97.6, and pulse was 51 with bradycardia and a pacemaker was present, 18 respiratory rate, and blood pressure 144/74, and pulse ox 98% aerated. His HEENT, the head was normocephalic, atraumatic. Pupil was reactive. The conjunctivae was pink. Sclera was nonicteric. Oropharynx was natural teeth and neck was supple. No JVD. No thyromegaly. No lymphadenopathy. The chest was clear to auscultation and percussion. No wheezes, no rhonchi. The heart was PMI in the 5th intercostal space outside midclavicular line. He had enlarged heart with cardiomegaly. He has a midline incision for the thoracotomy with a previous bypass graft and his left infraclavicular pacemaker and the lung was aerated bilaterally and no wheezes, no rhonchi. The heart was compensated with no evidence of congestive heart failure. The abdomen is soft. No pain in the 4 quadrant. No active pain on the flank area or suprapubic. EXTREMITIES: No edema. Positive pulses bilateral and good perfusion with normal movement and neurological exam was intact. ASSESSMENT: 1. Acute GI bleeding associated with gross red blood associated with Xarelto, the anticoagulation, and currently he is on 20 mg. 2. Troponin mildly elevated with the BNP is elevated at 3200, which is has been elevated prior to that, which is chronically due to the enlarged atrium and ischemic cardiomyopathy. No evidence of chest pain. His normal lactic acid and the chest x-ray is negative for pneumonia or acute infiltrate. However, the finding is associated with atelectasis. PLAN: 1. Consultation with Gastroenterology, Dr. Son or Dr. Snow, for further evaluation and treatment and endoscopy if needed. 2. Consultation with Cardiology with hope for adjusting the dose of the Xarelto or versus changing the medication to a different anticoagulation. LABORATORY: Indicating that his white count is 8.6 and hemoglobin is 13.8 and hematocrit 41.9. We will repeat CBC tomorrow to see if there is any drop of the hemoglobin. Sodium 142, potassium 4.8, chloride 102, carbon dioxide 29, and anion gap of 11. His total CPK of 57, CK-MB 0.9, and CK index 1.6. Troponin 0.015. His total protein 7.4 and albumin 4.2. His PT is 12.1, INR 1.3, and PTT 27.3. His lactic acid 1.7. His blood is A positive and antibody screen was negative. His BNP is 3220. We will be continuing his home medication and subsequently the patient admitted to observation and if further need will be discussing with the Cardiology and the Gastroenterology if needed or new finding has been appeared. The patient will be monitored as well. MMODL / IJN: [id number] /
[2017-02-25] MEDS: PANTOPRAZOLE 40 MG/10 ML VIAL IVP SCH (20:24)
[2017-02-25 20:51] LABS: Band Neutrophils % 3 %; Lymphocytes # (M) 6.57 k/uL (1.0-4.8); Neutrophils % (M) 29 %; Nucleated Red Blood Cells 0 /100 WBC (0-0); Poikilocytosis (M) Present; Total Cells Counted 100
[2017-02-26] MEDS: HYDROcodone/APAP 10-325MG 1 EACH TAB PO PRN ×3 (03:52→19:58)
[2017-02-26] MEDS: FUROSEMIDE 40 MG TAB PO SCH ×2 (06:10→16:54)
[2017-02-26 06:42] LABS: Basophils # (A) 0.1 k/uL (0-0.2); Basophils % (A) 1 %; Eosinophils # (A) 0.3 k/uL (0-0.7); Eosinophils % (A) 4 %; HCT 40.6 % (39.0-53.0); HGB 12.9 gm/dL (13.0-17.5); Lymphocytes # (A) 3.9 k/uL (1.0-4.8); Lymphocytes % (A) 41 %; MCH 32.4 pg (25.0-35.0); MCHC 31.9 g/dL (31.0-37.0); MCV 101.7 fL (80.0-100.0); Macrocytosis Slight; Mean Platelet Volume 8.4; Monocytes # (A) 0.8 k/uL (0-1.0); Monocytes % (A) 8 %; Neutrophils # (A) 4.1 k/uL (1.3-7.7); Neutrophils % (A) 43 %; Platelet Count 231 k/uL (150-450); WBC 9.5 k/uL (3.8-10.6)
[2017-02-26 07:01] LABS: ALT 37 U/L (21-72); AST 22 U/L (17-59); Albumin 3.9 g/dL (3.5-5.0); Alkaline Phosphatase 83 U/L (38-126); Anion Gap 6 mmol/L; Blood Urea Nitrogen 25 mg/dL (9-20); Calcium 9.4 mg/dL (8.4-10.2); Carbon Dioxide 28 mmol/L (22-30); Chloride 105 mmol/L (98-107); Glucose 105 mg/dL (74-99); Potassium 4.5 mmol/L (3.5-5.1); Sodium 139 mmol/L (137-145); Total Bilirubin 0.5 mg/dL (0.2-1.3); Total Protein 7.1 g/dL (6.3-8.2)
[2017-02-26] MEDS: PANTOPRAZOLE 40 MG/10 ML VIAL IVP SCH ×2 (08:33→19:58)
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
[2017-02-26] MEDS ORDERED: NON-FORMULARY DRUG (Omega-3 Fatty Acids/Fish Oil [Fish Oil 1,000 Mg Softgel] 1 CAP) PO SCH (09:00)
--- NOTE | 2017-02-26 09:54 | CONS ---
CONSULTATION Salvatore is 61-year-old gentleman with history of coronary artery disease, status post CABG, paroxysmal atrial fibrillation, hypertension, dyslipidemia, ischemic cardiomyopathy, status post AICD, who is admitted to hospital with blood per rectum. Cardiology had been consulted because of history of atrial fibrillation and need for the anticoagulants. Patient denies chest pain, but has-shortness of breath related to his anemia and had some shortness of breath. PAST MEDICAL HISTORY: Significant for coronary artery disease, status post CABG, hypertension, dyslipidemia, paroxysmal atrial fibrillation, ischemic cardiomyopathy, status post AICD. PAST SURGICAL HISTORY: Significant for bypass surgery, aortic aneurysm, kidney stones.. MEDICATIONS: At home included Lipitor, Lasix, Cozaar, metoprolol, Protonix. ALLERGIES: As charted. FAMILY HISTORY: Negative for premature coronary artery disease. SOCIAL HISTORY: Negative for smoking, EtOH abuse, or drug abuse. REVIEW OF SYSTEMS: HEENT is unremarkable. CARDIAC: As described above. RESPIRATORY: Negative. GI: Significant for blood per rectum. GENITOURINARY: Negative. ALLERGY/IMMUNOLOGY: Negative. SKIN: Negative. MUSCULOSKELETAL: Significant for arthritis. PSYCHOSOCIAL: Negative. ENDOCRINE: Negative. CONSTITUTIONAL: Negative. ONCOLOGICAL: Negative. Rest of the system review is not relevant. PHYSICAL EXAM: Patient is comfortable at rest. Afebrile. Heart rate is 50 beats per minute. Blood pressure is 105/60, respiratory rate is 18. There is no jugular venous distention. Carotid upstroke is normal. There is no bruit. Chest exam reveals good air entry bilaterally. Heart exam reveals first and second heart sounds. No gallop. Abdomen is soft. Exam of extremities did not reveal edema. Peripheral pulses are felt. LABS: Showed the hemoglobin is 12.9, potassium is 4.5, creatinine is 1. BNP is 3220. ASSESSMENT: 1. Blood per rectum. 2. Coronary artery disease, status post coronary artery bypass grafting. 3. Ischemic cardiomyopathy status post AICD. 4. Paroxysmal atrial fibrillation. 5. Elevated BNP of unclear clinical significance. Patient is not in congestive heart failure. PLAN: Patient will continue with the current medical therapy with the exception of the Xarelto that he was on. This is going to be stopped until his GI workup is complete and we know one way or the other as to why patient is losing blood. Thank you for letting us participate with this pleasant gentleman. MMODL / IJN: [id number] /
[2017-02-26] MEDS: SERTRALINE 50 MG TAB PO SCH (10:12)
[2017-02-26] MEDS: LOSARTAN 25 MG TAB PO SCH (10:12)
[2017-02-26] MEDS: METOPROLOL TARTRATE 50 MG TAB PO SCH ×2 (10:12→19:58)
[2017-02-26] MEDS: FERROUS SULFATE 325 MG TAB PO SCH ×2 (11:12→16:54)
--- NOTE | 2017-02-26 14:55 | P.PN ---
Subjective Progress Note Date: 02/26/17 Gun Stock Checker date of service 02/26/2017 dictated by the attending Dr. Shilpa M.D. KAVITA. Patient admitted on observation status with the underlying GI bleeding with the history of pacemaker chronic atrial fibrillation was placed on Xarelto by Dr. ARENAS. Acid Operator, patient presented with GI bleeding intermittent for the last 5 days, today is a 60 day and he still have blood in the stools today. Patient was seen by Dr. Padron electronic systems technician and he held also Xarolto the anticoagulant, and stated that he will be waiting until the gastroenterology decided to resume or not, [place] nurse practitioner for Dr. Padron assembler tractor did see the patient today and she will be discussing future planning with Dr. Padron with the consideration of diverticular bleed, or doing tomorrow capsule endoscopy to see the source of the bleeding. On exam: Vital sign temperature 97.7 heart rate is 51 with irregular irregularities regular rate 16 his blood pressure 120/76 with a mean pressure of 90 his oxygen on room air 98%. On the laboratories: White count is 9.5 hemoglobin 12.9 and he dropped so far 0.8 g since admission on 02/25/2017, we'll repeat his hemoglobin and hematocrit tomorrow with the CBC. Patient stated that he has blood in the stool today this morning. On exam physically patient is feeling well no abdominal pain no chest pain no feeling of this arrhythmia he had a pacemaker left infraclavicular. HEENT was negative neck was supple and no JVD no thyromegaly no lymphadenopathy. Chest is clear to auscultation and percussion no wheezes no rhonchi's. The heart was irregular irregularity with the underlying enlarged heart and previous history of coronary artery bypass graft with mid line thoracotomy of the thorax. Abdomen soft positive bowel sounds no organ enlargement no tenderness in the 4 quadrants or the flank area no suprapubic tenderness. No left lower quadrant tenderness. Extremities: Ambulatory and positive pulses and no edema. Neurologically stable no lateralizing sign. Assessment: GI bleeding with the suspected due to Xarelto. #2 GI consideration of diverticular bleed no clear diagnosis of that as patient did not have any sigmoidoscope or colonoscopy on this admission. However the bright red blood that was obvious grossly present. #3 atrial fibrillation #4 chronic anticoagulation. #5 ischemic cardiomyopathy #6 coronary artery bypass 3 vessels , history of hypertension currently controlled #7 hyperlipidemia. Plan: #1 patient on observation status, waiting for the gastroenterology decision for procedure with the capsule camera or endoscopy or decision from the GI. #2 continue withholding the Xarelto until cardiology allow for the use, who also waiting for the opinion of the gastroenterology. #3 will continue his current home medication and monitoring the laboratories. Objective - Vital Signs Vital signs: Vital Signs Temp 97.7 F 02/26/17 11:20 Pulse 51 L 02/26/17 11:20 Resp 16 02/26/17 11:20 BP 120/76 02/26/17 11:20 Pulse Ox 98 02/26/17 11:20 Intake & Output 02/25/17 02/26/17 02/26/17 18:59 06:59 18:59 Intake Total 240 120 400 Output Total 550 Balance -310 120 400 Weight 81.647 kg 85.8 kg Intake: Oral 240 120 400 Output: Urine 550 Other: # Voids 1 0 - Labs CBC & Chem 7: 02/26/17 06:07 02/26/17 06:07 Labs: Abnormal Lab Results - Last 24 Hours (Table) 02/25/17 02/26/17 02/26/17 Range/Units 17:44 06:07 06:07 RBC 4.04 L 4.00 L (4.30-5.90) m/uL Hgb 12.9 L (13.0-17.5) gm/dL MCV 103.2 H 101.7 H (80.0-100.0) fL Lymphocytes # (Manual) 6.57 H (1.0-4.8) k/uL BUN 25 H (9-20) mg/dL Glucose 105 H (74-99) mg/dL
[2017-02-26] MEDS: ATORVASTATIN 40 MG TAB PO SCH (19:58)
[2017-02-27] MEDS: FUROSEMIDE 40 MG TAB PO SCH (05:58)
[2017-02-27] MEDS: HYDROcodone/APAP 10-325MG 1 EACH TAB PO PRN ×2 (05:58→12:12)
[2017-02-27 06:12] LABS: Basophils # (A) 0.1 k/uL (0-0.2); Basophils % (A) 1 %; Eosinophils # (A) 0.4 k/uL (0-0.7); Eosinophils % (A) 4 %; HGB 13.2 gm/dL (13.0-17.5); Lymphocytes # (A) 4.5 k/uL (1.0-4.8); Lymphocytes % (A) 50 %; MCH 32.8 pg (25.0-35.0); MCV 99.2 fL (80.0-100.0); Mean Platelet Volume 7.9; Monocytes # (A) 0.7 k/uL (0-1.0); Monocytes % (A) 8 %; Neutrophils % (A) 33 %; Platelet Count 206 k/uL (150-450); RBC 4.04 m/uL (4.30-5.90); RDW 13.1 % (11.5-15.5)
[2017-02-27 08:58] VITALS: PULSE 50
--- NOTE | 2017-02-27 10:04 | P.PN ---
Subjective Progress Note Date: 02/27/17 Principal diagnosis: GI bleed Small BM yesterday afternoon black in color with some red tinged blood in toilet ; receiving iron supplementation. Hemoglobin improved today 13.2. Denies abdominal pain. Objective - Vital Signs Vital signs: Vital Signs Temp 97.5 F L 02/27/17 08:55 Pulse 50 L 02/27/17 08:55 Resp 16 02/27/17 08:55 BP 116/67 02/27/17 08:55 Pulse Ox 99 02/27/17 08:55 Intake & Output 02/26/17 02/27/17 02/27/17 18:59 06:59 18:59 Intake Total 637 0 Balance 637 0 Weight 85.4 kg Intake: Oral 637 0 Other: # Voids 0 2 1 - Exam General appearance: The patient is alert, oriented, in no acute distress. HET: Head is normocephalic and atraumatic. Pupils are equal and reactive. Oropharynx is clear without lesions. Neck: Supple without lymphadenopathy. Trachea midline. Heart: S1 S2. Regular rate and rhythm. Lungs: No crackles or wheezes are heard. Abdomen: Soft, nontender, nondistended with bowel sounds. No peritoneal signs. No palpable organomegaly or masses. Extremities: Normal skin color and turgor. No cyanosis, rash, ulceration, clubbing, or edema. Radial and pedal pulses are 2/4 bilaterally. Neurological: No focal deficits. Strength and sensation are grossly intact. - Labs CBC & Chem 7: 02/27/17 05:29 02/26/17 06:07 Labs: Abnormal Lab Results - Last 24 Hours (Table) 02/27/17 Range/Units 05:29 RBC 4.04 L (4.30-5.90) m/uL Assessment and Plan (1) Hematochezia Narrative/Plan: Suspect diverticular bleed however upper GI pathology, possible ischemic possible aorta enteric fistula cannot be excluded. Current Visit: Yes Status: Acute Code(s): K92.1 - MELENA SNOMED Code(s): 643316033 (2) Diverticulosis of colon Current Visit: Yes Status: Acute Code(s): K57.30 - DVRTCLOS OF LG INT W/O PERFORATION OR ABSCESS W/O BLEEDING SNOMED Code(s): 687623873 Plan: 1. Dr. Son recommends EGD today. 2. Continue IV Protonix. Continue to hold anticoagulation. The machine filler shredder has discussed the risks, benefits and alternative therapies for the above-mentioned procedure and for both sedation/analgesia as well as necessary blood product administration, if indicated, as they pertain to this patient. The patient has indicated understanding and acceptance of the risks and procedures discussed. Assessment and plan a care discussed with Dr. Son
[2017-02-27] MEDS: PANTOPRAZOLE 40 MG/10 ML VIAL IVP SCH (12:00)
[2017-02-27] MEDS: METOPROLOL TARTRATE 50 MG TAB PO SCH (12:12)
[2017-02-27] MEDS: FERROUS SULFATE 325 MG TAB PO SCH (12:13)
[2017-02-27] MEDS: LOSARTAN 25 MG TAB PO SCH (12:13)
[2017-02-27] MEDS: SERTRALINE 50 MG TAB PO SCH (12:13)
[2017-02-27] MEDS ORDERED: PROPOFOL 10 MG/ML 20 ML VIAL IV ONE (13:47)
[2017-02-27] MEDS ORDERED: LIDOCAINE 1% INJ 10MG/ML (20 ML MDV) ONE (13:47)
[2017-02-27] MEDS ORDERED: LACTATED RINGERS 1,000 ML IV ONE (13:50)
--- NOTE | 2017-02-27 13:58 | P.PCN ---
Date of Procedure: 02/27/17 Procedure(s) Performed: BRIEF HISTORY: Patient is a 61-year-old, pleasant, 8 male, admitted hospital with acute GI bleed. He had few episodes of dark and red colored stools. Has been on Xarelto which has been on hold for the last 2 days. Had a colonoscopy a year ago by Dr. Navarrete that showed diverticulosis. He has history of AAA graft placed few years ago for abdominal aortic aneurysm. He scheduled for an upper endoscopy to rule out any upper GI source of bleeding. PROCEDURE PERFORMED: Esophagogastroduodenoscopy. PREOPERATIVE DIAGNOSIS: Acute GI bleed. IV sedation per anesthesia. PROCEDURE: After informed consent was obtained, the patient was brought into the endoscopy unit. IV sedation was administered by Anesthesia under continuous monitoring. Initially the Olympus GIF-140 video endoscope was inserted into the mouth. Esophagus intubated without any difficulty. It was gradually advanced into the stomach and duodenum and into the proximal jejunum and carefully examined. The proximal jejunum appeared normal. No obvious bleeding noted. The bulb and the second part of the duodenum appeared normal. The scope at this time was withdrawn to the stomach, adequately insufflated with air, and upon careful examination, mucosa of the antrum, body, had diffuse gastritis but no ulcerations noted. The cardia and the fundus appeared normal. The scope was then withdrawn into the esophagus. The GE junction was located at 39 cm from the incisors. The esophagus appeared normal. There were no erosions or ulcerations seen and the patient tolerated the procedure well. IMPRESSION: 1. Mild antral gastritis. 2. No evidence of acute upper GI bleed. RECOMMENDATIONS: The findings of this examination were discussed with the patient . He was advised to follow with the biopsy results. We will continue to hold the Xarelto for now. Repeat CBC tomorrow morning. Advance diet as tolerated. Since the patient had a colonoscopy a year ago no need for colonoscopy at this time. Will follow him closely.
--- NOTE | 2017-02-27 14:27 | P.PN ---
Subjective Progress Note Date: 02/27/17 Principal diagnosis: Hematochezia This is a 61-year-old gentleman with past medical history for ischemic cardiomyopathy with prior AICD, persistent atrial fibrillation on xarelto, AAA repair with stenting, hypertension, hyperlipidemia, coronary artery disease status post CABG, was admitted to the hospital with rectal bleeding, cardiology consultation was requested because of history of atrial fibrillation and the fact that the patient was on Xarelto for anticoagulation. Xarelto was placed on hold yesterday, patient is scheduled today to undergo an EGD and colonoscopy. Hemoglobin has remained stable, 13.2 today. Blood pressure 124/70 with a heart rate in the 50s. Objective - Vital Signs Vital signs: Vital Signs Temp 97.7 F 02/27/17 11:36 Pulse 50 L 02/27/17 11:36 Resp 16 02/27/17 11:36 BP 125/75 02/27/17 11:36 Pulse Ox 95 02/27/17 11:36 Intake & Output 02/26/17 02/27/17 02/27/17 18:59 06:59 18:59 Intake Total 637 50 Balance 637 50 Weight 85.4 kg Intake: IV 50 Oral 637 0 Other: # Voids 0 2 1 - Exam PHYSICAL EXAMINATION: HEENT: Head is atraumatic, normocephalic. Pupils equal, round. Neck is supple. There is no elevated jugular venous pressure. HEART EXAMINATION: Heart S1, S2 normal. No murmur or gallop heard. CHEST EXAMINATION: Lungs are clear to auscultation and precussion. No chest wall tenderness is noted on palpation or with deep breathing. ABDOMEN: Soft, nontender. Bowel sounds are heard. No organomegaly noted. EXTREMITIES: 2+ peripheral pulses with no evidence of peripheral edema and no calf tenderness noted. NEUROLOGIC patient is awake, alert and oriented -3. . - Labs CBC & Chem 7: 02/27/17 05:29 02/26/17 06:07 Labs: Abnormal Lab Results - Last 24 Hours (Table) 02/27/17 Range/Units 05:29 RBC 4.04 L (4.30-5.90) m/uL Assessment and Plan Plan: Assessment and plan #1 rectal bleeding #2 persistent atrial fibrillation on Xarelto for anticoagulation. Xarelto is currently on hold #3 coronary artery disease with prior bypass surgery #4 ischemic cardio myopathy with prior AICD Patient is scheduled to undergo an EGD and colonoscopy today, once that has been completed, we will wait for clearance on resuming anticoagulation. DNP note has been reviewed, I agree with a documented findings and plan of care. Patient was seen and examined.
[2017-02-27 17:02] VITALS: BP 115/64; TEMP 97.6
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
[2017-02-28] MEDS ORDERED: PANTOPRAZOLE 40 MG TABLET PO SCH (09:00)
== END 2017-02-27 18:19 | disposition home or self-care (01) ==
LOC: EC 10:45 → 6SEL 13:36 → INTOOBSV 13:36 → 6SEL 16:34
PROVIDERS: ADMIT Internal Medicine; ATTEND Internal Medicine
DX: K92.2 Gastrointestinal hemorrhage, unspecified (principal); D64.9 Anemia, unspecified; T45.515A Adverse effect of anticoagulants, initial encounter; I48.2 Chronic atrial fibrillation; I48.0 Paroxysmal atrial fibrillation; I48.1 Persistent atrial fibrillation; I25.5 Ischemic cardiomyopathy; I11.9 Hypertensive heart disease without heart failure; I25.10 Atherosclerotic heart disease of native coronary artery without angina pectoris; Z95.810 Presence of automatic (implantable) cardiac defibrillator; Z79.01 Long term (current) use of anticoagulants; Z95.1 Presence of aortocoronary bypass graft; K29.60 Other gastritis without bleeding; Z86.79 Personal history of other diseases of the circulatory system; I71.4 Abdominal aortic aneurysm, without rupture; K57.30 Diverticulosis of large intestine without perforation or abscess without bleeding; R79.89 Other specified abnormal findings of blood chemistry; E78.5 Hyperlipidemia, unspecified; K21.9 Gastro-esophageal reflux disease without esophagitis; I25.2 Old myocardial infarction; M19.90 Unspecified osteoarthritis, unspecified site; H53.2 Diplopia; R41.3 Other amnesia; M50.321 Other cervical disc degeneration at C4-C5 level; M51.36 Other intervertebral disc degeneration, lumbar region; Z79.899 Other long term (current) drug therapy; Z91.041 Radiographic dye allergy status; Z88.8 Allergy status to other drugs, medicaments and biological substances; Z91.048 Other nonmedicinal substance allergy status; Z86.73 Personal history of transient ischemic attack (TIA), and cerebral infarction without residual deficits; Z87.442 Personal history of urinary calculi; Z87.891 Personal history of nicotine dependence; Z86.19 Personal history of other infectious and parasitic diseases; Z90.81 Acquired absence of spleen; Z82.49 Family history of ischemic heart disease and other diseases of the circulatory system; Z80.1 Family history of malignant neoplasm of trachea, bronchus and lung
CPT/HCPCS: 99285; 96374; 96376 ×3; 36415; 93005; 86900; 86901; 83880; 80053 ×2; 82550; 82553; 83605; 83735; 84484; 85025 ×3; 85610; 85045; 85730; 86850; 71020; 43235; G0378 ×4; J2001; J2704; C9113 ×3

== ENCOUNTER → 2017-04-25 | Outpatient (CLI) | payer OTHER ==
[2017-04-25 14:29] LABS: Anion Gap 11 mmol/L; Blood Urea Nitrogen 27 mg/dL (9-20); Calcium 9.2 mg/dL (8.4-10.2); Carbon Dioxide 30 mmol/L (22-30); Chloride 101 mmol/L (98-107); Glucose 108 mg/dL (74-99); Magnesium 1.9 mg/dL (1.6-2.3); Phosphorus 3.7 mg/dL (2.5-4.5); Potassium 4.6 mmol/L (3.5-5.1); Sodium 142 mmol/L (137-145)
== END | disposition home or self-care (01) ==
LOC: LABWHC1 13:36
PROVIDERS: ATTEND Internal Medicine
DX: E87.8 Other disorders of electrolyte and fluid balance, not elsewhere classified (principal)
CPT/HCPCS: 36415; 80048; 83735; 84100

== ENCOUNTER 2017-04-30 10:12 | Day surgery (SDC) | payer OTHER ==
[2017-04-29 08:49] VITALS: BMI 27.8
[~2017-04-30 10:12] MED LIST: LACTATED RINGERS 1,000 ML IV SCH; LIDOCAINE 1% 20 ML VIAL (10MG/ML) FOR IV START INTRADERMA PRN; SODIUM CHLORIDE 0.9% 1,000 ML IV SCH
[2017-04-30 10:38] VITALS: BP 127/82; PULSE 49; RESP 20; TEMP 97.7
== END 2017-04-30 11:19 | disposition home or self-care (01) ==
LOC: CATHCVL 10:12
PROVIDERS: ATTEND Internal Medicine Cardiovascular Disease
DX: I48.91 Unspecified atrial fibrillation (principal)
CPT/HCPCS: 36415; 80048; 82330; 83735; 93005

== ENCOUNTER → 2017-04-30 | Outpatient (CLI) | payer OTHER ==
[2017-04-30 10:57] LABS: Ionized Calcium 4.8 mg/dL (4.5-5.3)
[2017-04-30 11:16] LABS: Calcium 9.6 mg/dL (8.4-10.2); Potassium 4.9 mmol/L (3.5-5.1)
== END | disposition home or self-care (01) ==
LOC: LABWHC1 10:02
PROVIDERS: ATTEND Internal Medicine
DX: E87.5 Hyperkalemia (principal)
CPT/HCPCS: 36415; 80048; 82330; 83735

== ENCOUNTER 2017-05-13 19:07 | Observation (INO) | payer OTHER ==
[2017-05-13 20:34] LABS: Basophils # (A) 0.1 k/uL (0-0.2); Basophils % (A) 1 %; Eosinophils # (A) 0.5 k/uL (0-0.7); Eosinophils % (A) 4 %; HCT 39.5 % (39.0-53.0); HGB 13.3 gm/dL (13.0-17.5); Lymphocytes # (A) 4.5 k/uL (1.0-4.8); Lymphocytes % (A) 36 %; MCH 33.5 pg (25.0-35.0); MCHC 33.8 g/dL (31.0-37.0); Mean Platelet Volume 8.4; Monocytes % (A) 8 %; Neutrophils # (A) 5.8 k/uL (1.3-7.7); Neutrophils % (A) 47 %; Platelet Count 274 k/uL (150-450); RBC 3.99 m/uL (4.30-5.90); RDW 14.3 % (11.5-15.5); WBC 12.4 k/uL (3.8-10.6)
[2017-05-13 20:49] LABS: Partial Thromboplastin Time 23.3 sec (22.0-30.0)
[2017-05-13 20:55] LABS: Albumin 4.3 g/dL (3.5-5.0); Calcium 9.6 mg/dL (8.4-10.2); Potassium 4.9 mmol/L (3.5-5.1); Total Bilirubin 0.5 mg/dL (0.2-1.3); Total Protein 7.5 g/dL (6.3-8.2)
[2017-05-13 21:10] LABS: Creatine Kinase MB 0.7 ng/mL (0.0-2.4); Troponin I 0.014 ng/mL (0.000-0.034)
[2017-05-13] MEDS ORDERED: IPRATROPIUM-ALBUTEROL 3 ML NEB INHALATION STA (21:13)
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
--- NOTE | 2017-05-13 22:11 | XR ---
EXAMINATION TYPE: XR chest 2V DATE OF EXAM: 05/13/2017 COMPARISON: 02/25/2017 HISTORY: Cough TECHNIQUE: Frontal and lateral views of the chest are obtained. FINDINGS: Heart is enlarged. There is no heart failure. There are numerous old left-sided posterior healed rib fractures. Lungs are clear of consolidation. There is left axillary pacemaker with the oliva d tip in the right ventricle. There is no pleural effusion. IMPRESSION: No active cardiopulmonary disease. No change.
[2017-05-13] MEDS ORDERED: methylPREDNISolone SOD SUCCI 125 MG/2 ML VIAL IV STA (22:38)
[2017-05-13] MEDS ORDERED: LEVOFLOXACIN 750MG-D5W PMX 750 MG in DEXTROSE/WATER 1 150ML.BAG IVPB STA (22:48)
[2017-05-13 23:54] VITALS: RESP 16
[2017-05-14] MEDS ORDERED: IPRATROPIUM-ALBUTEROL 3 ML NEB INHALATION SCH
[2017-05-14] MEDS: HYDROcodone/APAP 10-325MG 1 EACH TAB PO PRN ×3 (02:20→18:19)
[2017-05-14] MEDS: APIXABAN 5 MG TAB PO SCH ×3 (02:20→20:27)
[2017-05-14] MEDS: ATORVASTATIN 40 MG TAB PO SCH ×2 (02:20→20:27)
[2017-05-14] MEDS: METOPROLOL TARTRATE 50 MG TAB PO SCH ×3 (02:21→20:27)
[2017-05-14] MEDS: FUROSEMIDE 40 MG TAB PO SCH ×3 (02:21→20:27)
[2017-05-14] MEDS: methylPREDNISolone SOD SUCCI 125 MG/2 ML VIAL IV SCH ×4 (05:21→23:38)
[2017-05-14] MEDS: IPRATROPIUM-ALBUTEROL 3 ML NEB INHALATION PRN ×4 (07:05→20:50)
[2017-05-14 07:49] LABS: Glucose,Whole Blood 161 mg/dL (75-99)
[2017-05-14 09:16] LABS: Basophils % (A) 0 %; Eosinophils % (A) 0 %; HGB 11.8 gm/dL (13.0-17.5); Lymphocytes # (A) 1.2 k/uL (1.0-4.8); Lymphocytes % (A) 14 %; MCH 33.2 pg (25.0-35.0); MCV 100.8 fL (80.0-100.0); Macrocytosis Slight; Mean Platelet Volume 8.6; Monocytes # (A) 0.1 k/uL (0-1.0); Monocytes % (A) 2 %; Neutrophils # (A) 7.2 k/uL (1.3-7.7); Neutrophils % (A) 84 %; Platelet Count 245 k/uL (150-450); RBC 3.57 m/uL (4.30-5.90); RDW 14.3 % (11.5-15.5); WBC 8.6 k/uL (3.8-10.6)
[2017-05-14] MEDS ORDERED: NITROGLYCERIN SL TABS 0.4 MG TAB SUBLINGUAL PRN (09:26)
[2017-05-14 09:38] LABS: Albumin 3.8 g/dL (3.5-5.0); Calcium 9.1 mg/dL (8.4-10.2); Potassium 4.4 mmol/L (3.5-5.1); Total Bilirubin 0.5 mg/dL (0.2-1.3); Total Protein 6.6 g/dL (6.3-8.2)
[2017-05-14 09:43] LABS: Creatine Kinase 70 U/L (55-170)
[2017-05-14 09:54] LABS: Creatine Kinase MB 0.6 ng/mL (0.0-2.4); Troponin I <0.012 ng/mL (0.000-0.034)
--- NOTE | 2017-05-14 10:28 | XR ---
EXAMINATION TYPE: XR chest 2V DATE OF EXAM: 05/14/2017 COMPARISON: 05/13/2017 and 02/25/2017 HISTORY: 61-year-old male with bronchitis, cough, rule out pneumonia TECHNIQUE: Frontal and lateral views FINDINGS: Left anterior chest wall AICD generator with right atrial and right ventricular leads. Median sternot jenifer wires are present. Surgical clips below the GE junction. There seems to be a abdominal aortic kalen nt partially visualized. Heart borderline enlarged. Atherosclerotic arch calcifications. Multiple left-sided rib fracture defo rmities. The pleural-parenchymal density peripheral left lower lung appears unchanged and is likely p osttraumatic. No new area of consolidation and no pleural effusion. IMPRESSION: Pleural parenchymal opacity peripheral left base is unchanged and is likely chronic posttraumatic giv en multiple left-sided rib fracture deformities. No definite acute process.
[2017-05-14] MEDS ORDERED: ERGOCALCIFEROL 50,000 UNIT CAP PO SCH (12:00)
[2017-05-14 12:47] LABS: Glucose,Whole Blood 322 mg/dL (75-99)
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
[2017-05-14 17:38] LABS: Glucose,Whole Blood 206 mg/dL (75-99)
[2017-05-14] MEDS: INSULIN ASPART 100 UNIT/ML 1 ML 10 ML VIAL SQ SCH ×2 (18:19→22:24)
[2017-05-14] MEDS: FERROUS SULFATE 325 MG TAB PO SCH (20:27)
[2017-05-14] MEDS ORDERED: AMIODARONE 200 MG TAB PO SCH (21:00)
[2017-05-14] MEDS ORDERED: LEVOFLOXACIN 500MG-D5W PMX 500 MG in DEXTROSE/WATER 1 100ML.BAG IVPB SCH (21:00)
[2017-05-14 22:00] LABS: Glucose,Whole Blood 232 mg/dL (75-99)
[2017-05-15 06:49] VITALS: BP 106/56; TEMP 97.8
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
[2017-05-15] MEDS: methylPREDNISolone SOD SUCCI 125 MG/2 ML VIAL IV SCH ×2 (07:13→13:41)
[2017-05-15] MEDS: IPRATROPIUM-ALBUTEROL 3 ML NEB INHALATION PRN ×2 (07:18→11:23)
[2017-05-15 07:30] LABS: Glucose,Whole Blood 148 mg/dL (75-99)
[2017-05-15] MEDS: APIXABAN 5 MG TAB PO SCH (08:19)
[2017-05-15] MEDS: HYDROcodone/APAP 10-325MG 1 EACH TAB PO PRN (08:19)
[2017-05-15] MEDS: METOPROLOL TARTRATE 50 MG TAB PO SCH (08:20)
[2017-05-15] MEDS: FUROSEMIDE 40 MG TAB PO SCH (08:20)
[2017-05-15] MEDS: FERROUS SULFATE 325 MG TAB PO SCH (08:20)
[2017-05-15] MEDS: INSULIN ASPART 100 UNIT/ML 1 ML 10 ML VIAL SQ SCH ×2 (08:20→13:41)
[2017-05-15] MEDS ORDERED: LOSARTAN 25 MG TAB PO SCH (09:00)
[2017-05-15] MEDS ORDERED: NON-FORMULARY DRUG (Omega-3 Fatty Acids/Fish Oil [Fish Oil 1,000 Mg Softgel] 1 CAP) PO SCH (09:00)
[2017-05-15] MEDS ORDERED: SERTRALINE 50 MG TAB PO SCH (09:00)
[2017-05-15] MEDS ORDERED: NON-FORMULARY DRUG (Ubidecarenone [Co Q-10] 100 MG) PO SCH (09:00)
[2017-05-15] MEDS ORDERED: MULTIVITAMINS, THERA 1 EACH TAB PO SCH (12:00)
[2017-05-15 12:02] VITALS: PULSE 66
[2017-05-15 12:43] LABS: Glucose,Whole Blood 138 mg/dL (75-99)
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
[2017-05-15] MEDS ORDERED: CEFUROXIME 250 MG TAB PO SCH (21:00)
[2017-05-15] MEDS ORDERED: LEVOFLOXACIN 500 MG TAB PO SCH (21:00)
[2017-05-16] MEDS ORDERED: AMIODARONE 200 MG TAB PO SCH (09:00)
== END 2017-05-15 15:37 | disposition home or self-care (01) ==
LOC: EC 19:07 → 4MS4W 23:49
PROVIDERS: ADMIT Internal Medicine; ATTEND Internal Medicine
DX: J44.0 Chronic obstructive pulmonary disease with (acute) lower respiratory infection (principal); J20.9 Acute bronchitis, unspecified; J44.1 Chronic obstructive pulmonary disease with (acute) exacerbation; I25.5 Ischemic cardiomyopathy; Z95.1 Presence of aortocoronary bypass graft; I25.10 Atherosclerotic heart disease of native coronary artery without angina pectoris; K21.9 Gastro-esophageal reflux disease without esophagitis; E78.5 Hyperlipidemia, unspecified; R73.9 Hyperglycemia, unspecified; I10 Essential (primary) hypertension; N17.9 Acute kidney failure, unspecified; I25.2 Old myocardial infarction; R41.3 Other amnesia; H53.2 Diplopia; M51.36 Other intervertebral disc degeneration, lumbar region; M50.321 Other cervical disc degeneration at C4-C5 level; I48.0 Paroxysmal atrial fibrillation; I48.2 Chronic atrial fibrillation; E55.9 Vitamin D deficiency, unspecified; F41.9 Anxiety disorder, unspecified; F43.10 Post-traumatic stress disorder, unspecified; F32.9 Major depressive disorder, single episode, unspecified; D64.9 Anemia, unspecified; M19.90 Unspecified osteoarthritis, unspecified site; Z90.81 Acquired absence of spleen; Z79.01 Long term (current) use of anticoagulants; Z79.899 Other long term (current) drug therapy; Z91.048 Other nonmedicinal substance allergy status; Z88.8 Allergy status to other drugs, medicaments and biological substances; Z91.041 Radiographic dye allergy status; Z86.73 Personal history of transient ischemic attack (TIA), and cerebral infarction without residual deficits; Z87.442 Personal history of urinary calculi; Z87.01 Personal history of pneumonia (recurrent); Z86.19 Personal history of other infectious and parasitic diseases; Z95.810 Presence of automatic (implantable) cardiac defibrillator; Z95.828 Presence of other vascular implants and grafts; Z87.891 Personal history of nicotine dependence; Z80.1 Family history of malignant neoplasm of trachea, bronchus and lung
CPT/HCPCS: 36415; 71046; 80053; 82550; 82553; 83605; 83735; 83880; 84484; 85025; 85610; 85730; 87040; 87502; 93005; 94640; 96365; 96366; 96375; 96376; 99285

== ENCOUNTER 2017-05-20 09:39 | Observation (INO) | payer OTHER ==
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
--- NOTE | 2017-05-20 10:46 | XR ---
EXAMINATION TYPE: XR chest 2V DATE OF EXAM: 05/20/2017 COMPARISON: 05/14/2017 INDICATION: Chest pain, pressure TECHNIQUE: Frontal and lateral views of the chest are obtained. FINDINGS: The heart size is enlarged. The pulmonary vasculature is normal. There is some chronic thickening along the lateral left lower lung field. Pacemaker overlies left trisha st.. Sternotomy wires are in the midline. Some mild thickening along the right distal inferior later al lung field may be present. IMPRESSION: 1. Mild bilateral lower lung field pleural thickening greater on the left
[2017-05-20 10:49] LABS: INR 1.1 (<1.2); Prothrombin Time 10.4 sec (9.0-12.0)
[2017-05-20 10:50] LABS: Albumin 3.7 g/dL (3.5-5.0); Total Bilirubin 0.8 mg/dL (0.2-1.3); Total Protein 6.8 g/dL (6.3-8.2)
[2017-05-20 10:51] LABS: Magnesium 2.1 mg/dL (1.6-2.3); Potassium 5.2 mmol/L (3.5-5.1)
[2017-05-20 10:59] LABS: HCT 41.2 % (39.0-53.0); HGB 14.1 gm/dL (13.0-17.5); MCH 33.5 pg (25.0-35.0); MCHC 34.3 g/dL (31.0-37.0); MCV 97.7 fL (80.0-100.0); Platelet Count 331 k/uL (150-450); RBC 4.21 m/uL (4.30-5.90); RDW 14.3 % (11.5-15.5); WBC 13.8 k/uL (3.8-10.6)
[2017-05-20 11:14] LABS: Creatine Kinase MB 1.5 ng/mL (0.0-2.4); Partial Thromboplastin Time 20.1 sec (22.0-30.0); Troponin I 0.025 ng/mL (0.000-0.034)
[2017-05-20 11:19] LABS: Eosinophils # (M) 0.28 k/uL (0-0.7); Myelocytes # (M) 0.14 k/uL (0); Myelocytes % 1 %; Neutrophils # (M) 4.55 k/uL (1.3-7.7); Neutrophils % (M) 33 %; Nucleated Red Blood Cells 0 /100 WBC (0-0); Poikilocytosis (M) Present; Total Cells Counted 200
[2017-05-20] MEDS ORDERED: FUROSEMIDE 10 MG/ML 2 ML VIAL IV STA (12:23)
--- NOTE | 2017-05-20 14:49 | US ---
EXAMINATION TYPE: US gallbladder DATE OF EXAM: 05/20/2017 COMPARISON: CT CLINICAL HISTORY: Pain. Pt in ER for chest pain and pressure EXAM MEASUREMENTS: Liver Length: 16.1 cm Gallbladder Wall: Difficult to visualize CBD: 0.3 cm Right Kidney: 9.8 x 4.2 x 4.5 cm Difficult/limited exam, pt ate fatty meal and chips just prior to exam Pancreas: Obscured by bowel gas Liver: Limited visualization appeared wnl Gallbladder: Difficult to evaluate, contracted Evidence for sonographic Weber's sign: No CBD: wnl Right Kidney: Cyst mid/lateral= 1.1 x 0.9 x 1.0 cm IMPRESSION: No significant abnormality.
[2017-05-20] MEDS ORDERED: MORPHINE SULFATE 4 MG/ML SYRINGE IV PRN (15:21)
[2017-05-20] MEDS ORDERED: NALOXONE 0.4 MG/ML 1 ML VIAL IV PRN (15:21)
[2017-05-20] MEDS ORDERED: NITROGLYCERIN SL TABS 0.4 MG TAB SUBLINGUAL PRN (15:26)
[2017-05-20] MEDS: HYDROcodone/APAP 10-325MG 1 EACH TAB PO PRN (17:38)
[2017-05-20 17:49] LABS: Creatine Kinase MB 1.8 ng/mL (0.0-2.4); Troponin I 0.018 ng/mL (0.000-0.034)
[2017-05-20 18:45] VITALS: BMI 27.8
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
[2017-05-20] MEDS: ATORVASTATIN 40 MG TAB PO SCH (20:50)
[2017-05-20] MEDS: APIXABAN 5 MG TAB PO SCH (20:50)
[2017-05-20] MEDS: FERROUS SULFATE 325 MG TAB PO SCH (20:50)
[2017-05-20] MEDS: LIDOCAINE 5% PATCH TOPICAL SCH (20:50)
[2017-05-20] MEDS: METOPROLOL TARTRATE 50 MG TAB PO SCH (20:50)
[2017-05-20] MEDS: CEFUROXIME 250 MG TAB PO SCH (20:51)
[2017-05-20] MEDS: FAMCICLOVIR 500 MG TAB PO SCH ×2 (20:51→23:30)
[2017-05-20] MEDS ORDERED: FUROSEMIDE 40 MG TAB PO SCH (21:00)
[2017-05-20] MEDS: FUROSEMIDE 10 MG/ML 2 ML VIAL IV SCH (21:09)
[2017-05-20 22:14] LABS: Appearance,Urine Clear (Clear); Bilirubin,Urine Negative (Negative); Blood,Urine Negative (Negative); Color,Urine Yellow; Glucose,Urine (UA) Negative (Negative); Ketones,Urine Negative (Negative); Leukocyte Esterase,Urine Negative (Negative); Nitrite,Urine Negative (Negative); PH, Urine 5.5 (5.0-8.0); Protein,Urine Negative (Negative); Specific Gravity,Urine 1.017 (1.001-1.035); Urobilinogen,Urine <2.0 mg/dL (<2.0)
[2017-05-21] MEDS ORDERED: FUROSEMIDE 10 MG/ML 2 ML VIAL IV SCH
[2017-05-21] MEDS: HYDROcodone/APAP 10-325MG 1 EACH TAB PO PRN ×2 (05:43→18:46)
[2017-05-21 08:48] LABS: HCT 41.4 % (39.0-53.0); HGB 13.4 gm/dL (13.0-17.5); MCH 32.2 pg (25.0-35.0); MCHC 32.5 g/dL (31.0-37.0); MCV 99.2 fL (80.0-100.0); Mean Platelet Volume 8.3; Platelet Count 286 k/uL (150-450); RBC 4.17 m/uL (4.30-5.90); RDW 14.1 % (11.5-15.5); WBC 13.7 k/uL (3.8-10.6)
[2017-05-21] MEDS ORDERED: LOSARTAN 25 MG TAB PO SCH (09:00)
[2017-05-21] MEDS ORDERED: AMIODARONE 200 MG TAB PO SCH (09:00)
[2017-05-21] MEDS ORDERED: ERGOCALCIFEROL 50,000 UNIT CAP PO SCH (09:00)
[2017-05-21] MEDS ORDERED: NON-FORMULARY DRUG (Omega-3 Fatty Acids/Fish Oil [Fish Oil 1,000 Mg Softgel] 1 CAP) PO SCH (09:00)
[2017-05-21 10:11] LABS: Eosinophils # (M) 0.14 k/uL (0-0.7); Lymphocytes # (M) 6.44 k/uL (1.0-4.8); Metamyelocytes # (M) 0.14 k/uL (0); Metamyelocytes % 1 %; Monocytes # (M) 1.23 k/uL (0-1.0); Myelocytes # (M) 0.14 k/uL (0); Myelocytes % 1 %; Neutrophils # (M) 5.75 k/uL (1.3-7.7); Neutrophils % (M) 42 %; Nucleated Red Blood Cells 0 /100 WBC (0-0); Total Cells Counted 200
[2017-05-21 10:12] LABS: Poikilocytosis (M) Present
[2017-05-21] MEDS: METOPROLOL TARTRATE 50 MG TAB PO SCH ×2 (12:06→22:53)
[2017-05-21] MEDS: FERROUS SULFATE 325 MG TAB PO SCH ×2 (12:07→22:52)
[2017-05-21] MEDS: MULTIVITAMINS, THERA 1 EACH TAB PO SCH (12:07)
[2017-05-21] MEDS: APIXABAN 5 MG TAB PO SCH ×2 (12:07→22:53)
[2017-05-21] MEDS: CEFUROXIME 250 MG TAB PO SCH ×2 (12:07→22:52)
[2017-05-21] MEDS: FAMCICLOVIR 500 MG TAB PO SCH ×3 (12:07→23:34)
[2017-05-21] MEDS: SERTRALINE 50 MG TAB PO SCH (12:07)
[2017-05-21] MEDS: FUROSEMIDE 10 MG/ML 2 ML VIAL IV SCH ×2 (12:08→22:53)
[2017-05-21 12:53] LABS: Calcium 9.2 mg/dL (8.4-10.2); Potassium 5.4 mmol/L (3.5-5.1)
[2017-05-21 12:54] LABS: Albumin 3.6 g/dL (3.5-5.0); Bilirubin, Delta 0.4 mg/dL (0.0-0.2); Bilirubin,Unconjugated 0.5 mg/dL (0.0-1.1); Total Bilirubin 0.9 mg/dL (0.2-1.3); Total Protein 6.4 g/dL (6.3-8.2)
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
[2017-05-21] MEDS ORDERED: MORPHINE ORAL SOLN 10 MG/5 ML CUP PO PRN (15:21)
[2017-05-21] MEDS: ISOSORBIDE MONONITRATE ER 30 MG TAB.ER.24H PO SCH (18:20)
[2017-05-21] MEDS: LIDOCAINE 5% PATCH TOPICAL SCH ×2 (19:19→22:56)
[2017-05-21] MEDS: ATORVASTATIN 40 MG TAB PO SCH (22:52)
[2017-05-22 03:47] VITALS: RESP 16
[2017-05-22 06:58] LABS: Calcium 8.6 mg/dL (8.4-10.2)
[2017-05-22] MEDS: CEFUROXIME 250 MG TAB PO SCH (09:41)
[2017-05-22] MEDS: SERTRALINE 50 MG TAB PO SCH (09:41)
[2017-05-22] MEDS: ISOSORBIDE MONONITRATE ER 30 MG TAB.ER.24H PO SCH (09:41)
[2017-05-22] MEDS: MULTIVITAMINS, THERA 1 EACH TAB PO SCH (09:41)
[2017-05-22] MEDS: APIXABAN 5 MG TAB PO SCH (09:41)
[2017-05-22] MEDS: FAMCICLOVIR 500 MG TAB PO SCH (09:41)
[2017-05-22] MEDS: FERROUS SULFATE 325 MG TAB PO SCH (09:41)
[2017-05-22] MEDS: FUROSEMIDE 10 MG/ML 2 ML VIAL IV SCH (09:41)
[2017-05-22] MEDS: HYDROcodone/APAP 10-325MG 1 EACH TAB PO PRN (11:08)
[2017-05-22 11:31] VITALS: BP 110/59; PULSE 52; TEMP 97.9
--- NOTE | 2017-05-22 14:40 | P.PN ---
Subjective Progress Note Date: 05/22/17 Mr. Yates is a pleasant 61-year-old male past medical history significant for atrial fibrillation on long-term anticoagulation, coronary artery disease status post bypass grafting, hyperlipidemia, hypertension, CVA, AICD/pacemaker placement, gastroesophageal reflux disease and former tobacco use. He follows with Dr. Osman in the office. We've been asked to see him in consultation for complaints of chest pain. He states the pain started yesterday morning and felt like a tight sensation in his anterior mid-sternal region. He had mild shortness of breath and felt nauseated. He had a scheduled appointment with Dr. Osman yesterday. He took 1 SL nitroglycerin and the pain remained the same. Him and his went to his scheduled appointment. While sitting in the waiting room he continued to have pain so he took another SL nitroglycerin with no relief. After the second nitro didn't work he decided to leave the office and come to ED for evaluation. He took a third nitroglycerin on the way here and by the time he arrived his pain had subsided. He was found to have shingles on the left buttocks and is being treated with anti-viral medication and on isolation precautions. At the time of my exam he is chest pain free, denies shortness of breath, dizziness, palpitations, nausea, vomiting or diaphoresis. Telemetry tracings reveal he is maintaining sinus mechanism. He was recently admitted and see in consultation regarding amiodarone and his not feeling well taking it. At that time it was determined he should continue at a lower dose of 200 mg daily. He states he is not tolerating this medication and continues to feel weak and fatigued while taking it so he stopped taking as of last Friday. EKG on arrival reveals atrial paced rhythm with nonspecific ST abnormalities. This evidence of intraventricular block. This is same as previous EKG. Chest x-ray on admission shows mild bilateral lower lung field pleural thickening. Laboratory data reviewed, WBC 13.7, hemoglobin 13.4, platelets 286, potassium 5.4, magnesium 2.1, creatinine 1.27 up from 1.18 on admission. Cardiac enzymes negative 3, proBNP 4380. This appears to be his baseline. Current cardiac medications include atorvastatin 40 mg daily, Eliquis 5 mg twice a day, amiodarone 200 mg daily, losartan 25 mg daily, Lasix 40 mg twice a day and metoprolol 50 mg twice a day. Most recent echocardiogram performed October 2016 reveals severely impaired left ventricular systolic function with ejection fraction 20-25%, severe global hypokinesia, moderate left ventricular hypertrophy, mildly dilated left ventricle, mild TR, mild MR, mildly thickened aortic valve and mildly enlarged right ventricle. Most recent Lexiscan stress test performed January 2017 perfusion defect suggestive of prior [place], gated analysis of 25%, no EKG evidence of ischemia. 05/22/2017 Mr. Yates is seen and examined today. He denies any further symptoms of chest pain. Repeat potassium today is 5.0 with losartan being held. Imdur was started yesterday but was held per nursing. Advised to give this am. Heart rate consistently in the high 40-low 50 range. Beta blockers have also been held. Objective - Vital Signs Vital signs: Vital Signs Temp 97.9 F 05/22/17 11:29 Pulse 52 L 05/22/17 11:29 Resp 16 05/22/17 11:29 BP 110/59 05/22/17 11:29 Pulse Ox 92 L 05/22/17 11:29 Intake & Output 05/21/17 05/22/17 05/22/17 18:59 06:59 18:59 Intake Total 600 761 Balance 600 761 Weight 90 kg Intake: Oral 600 761 Other: Voiding Method Toilet Toilet Toilet # Voids 2 1 1 - Exam Blood pressure 112/67 heart rate 58 afebrile maintaining oxygen saturation on room air GENERAL: Well-appearing, well-nourished and in no acute distress. NECK: Supple without JVD or thyromegaly. LUNGS: Breath sounds clear to auscultation bilaterally. Respiration equal and unlabored. No wheezes, rales or rhonchi. HEART: Regular rate and rhythm with systolic ejection murmur at the base, no rubs or gallops. S1 and S2 heard. EXTREMITIES: Normal range of motion, no edema. No clubbing or cyanosis. Peripheral pulses intact and strong. - Labs CBC & Chem 7: 05/21/17 08:02 05/22/17 06:20 Labs: Abnormal Lab Results - Last 24 Hours (Table) 05/22/17 Range/Units 06:20 Sodium 136 L (137-145) mmol/L Carbon Dioxide 32 H (22-30) mmol/L BUN 37 H (9-20) mg/dL Microbiology - Last 24 Hours (Table) 05/20/17 21:00 Urine Culture - Final Urine,Voided Assessment and Plan Assessment: ASSESSMENT 1. Chest pain, atypical. An acute coronary event has been ruled out with negative cardiac enzymes and no EKG evidence of acute ischemia. 2. Paroxysmal atrial fibrillation on explosive operator grenade anticoagulation with Eliquis s/p cardioversion. Maintaining sinus mechanism. Intolerance to amiodra 3. Chronic systolic heart failure, currently euvolemic 4. History of coronary artery disease, s/p bypass grafting 5. AICD/pacemaker in place 6. Hypertension 7. Dyslipidemia 8. COPD 9. Shingles, acute 10. Hyperkalemia 11. Elevated liver enzymes on admission, improved today PLAN Decrease metoprolol to 25 mg BID. Obtain BMP in 3 days. Will reassess losartan administration as an outpatient. Stable from cardiac perspective. Follow-up with Dr. Osman in 1 week. Nurse Practitioner note has been reviewed, I agree with a documented findings and plan of care. Patient was seen and examined.
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
[2017-05-22] MEDS ORDERED: METOPROLOL TARTRATE 25 MG TAB PO SCH (21:00)
== END 2017-05-22 15:35 | disposition home or self-care (01) ==
LOC: EC 09:39 → 3OBS 15:21
PROVIDERS: ADMIT Internal Medicine; ATTEND Internal Medicine
DX: I25.110 Atherosclerotic heart disease of native coronary artery with unstable angina pectoris (principal); Z95.1 Presence of aortocoronary bypass graft; R74.8 Abnormal levels of other serum enzymes; D72.829 Elevated white blood cell count, unspecified; E87.5 Hyperkalemia; B02.9 Zoster without complications; J44.9 Chronic obstructive pulmonary disease, unspecified; Z95.810 Presence of automatic (implantable) cardiac defibrillator; E78.5 Hyperlipidemia, unspecified; I11.0 Hypertensive heart disease with heart failure; I50.42 Chronic combined systolic (congestive) and diastolic (congestive) heart failure; I25.5 Ischemic cardiomyopathy; I25.2 Old myocardial infarction; I48.0 Paroxysmal atrial fibrillation; F43.10 Post-traumatic stress disorder, unspecified; F32.9 Major depressive disorder, single episode, unspecified; F41.9 Anxiety disorder, unspecified; Z86.79 Personal history of other diseases of the circulatory system; R74.0 Nonspecific elevation of levels of transaminase and lactic acid dehydrogenase [LDH]; J40 Bronchitis, not specified as acute or chronic; M54.9 Dorsalgia, unspecified; J98.01 Acute bronchospasm; K21.9 Gastro-esophageal reflux disease without esophagitis; Z90.81 Acquired absence of spleen; Z87.442 Personal history of urinary calculi; Z87.891 Personal history of nicotine dependence; T46.2X5A Adverse effect of other antidysrhythmic drugs, initial encounter; Z79.01 Long term (current) use of anticoagulants; Z80.1 Family history of malignant neoplasm of trachea, bronchus and lung; Z79.899 Other long term (current) drug therapy; Z91.048 Other nonmedicinal substance allergy status; Z88.8 Allergy status to other drugs, medicaments and biological substances; Z91.041 Radiographic dye allergy status; M19.90 Unspecified osteoarthritis, unspecified site; Z87.01 Personal history of pneumonia (recurrent); R41.3 Other amnesia; I69.312 Visuospatial deficit and spatial neglect following cerebral infarction; M51.36 Other intervertebral disc degeneration, lumbar region; M50.921 Unspecified cervical disc disorder at C4-C5 level; D64.9 Anemia, unspecified; Z86.19 Personal history of other infectious and parasitic diseases; I25.82 Chronic total occlusion of coronary artery
CPT/HCPCS: 36415; 71046; 76705; 80048; 80053; 80076; 81003; 82550; 82553; 83690; 83735; 83880; 84484; 85025; 85610; 85730; 87086; 93005; 96374; 96376; 99285

== ENCOUNTER → 2017-06-02 | Outpatient (CLI) | payer OTHER ==
[2017-06-02 10:34] LABS: Calcium 9.4 mg/dL (8.4-10.2); Magnesium 2.3 mg/dL (1.6-2.3); Potassium 5.5 mmol/L (3.5-5.1)
[2017-06-02 10:40] LABS: HCT 39.6 % (39.0-53.0); HGB 12.6 gm/dL (13.0-17.5); MCH 32.1 pg (25.0-35.0); MCV 100.6 fL (80.0-100.0); Macrocytosis Slight; Mean Platelet Volume 8.2; Platelet Count 295 k/uL (150-450); RBC 3.93 m/uL (4.30-5.90); RDW 13.9 % (11.5-15.5)
[2017-06-02 13:32] LABS: Eosinophils # (M) 0.14 k/uL (0-0.7); Lymphocytes # (M) 4.13 k/uL (1.0-4.8); Monocytes # (M) 0.77 k/uL (0-1.0); Neutrophils # (M) 1.96 k/uL (1.3-7.7); Neutrophils % (M) 28 %; Nucleated Red Blood Cells 0 /100 WBC (0-0); Poikilocytosis (M) Present; Total Cells Counted 100
== END | disposition home or self-care (01) ==
LOC: LABWHC1 09:30
PROVIDERS: ATTEND Internal Medicine
DX: E87.5 Hyperkalemia (principal); N18.3 Chronic kidney disease, stage 3 (moderate); D63.1 Anemia in chronic kidney disease
CPT/HCPCS: 36415; 80048; 83735; 85025

== ENCOUNTER 2017-07-29 17:03 | Inpatient (IN) | payer OTHER ==
[2017-07-29] MEDS ORDERED: ASPIRIN 81 MG PO STA (18:17)
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
[2017-07-29 19:16] LABS: Basophils # (A) 0.1 k/uL (0-0.2); Basophils % (A) 1 %; Eosinophils # (A) 0.3 k/uL (0-0.7); Eosinophils % (A) 3 %; HCT 38.8 % (39.0-53.0); Lymphocytes # (A) 4.1 k/uL (1.0-4.8); Lymphocytes % (A) 46 %; MCH 33.1 pg (25.0-35.0); MCHC 33.5 g/dL (31.0-37.0); MCV 98.9 fL (80.0-100.0); Macrocytosis Slight; Mean Platelet Volume 8.8; Monocytes # (A) 0.7 k/uL (0-1.0); Monocytes % (A) 8 %; Neutrophils # (A) 3.6 k/uL (1.3-7.7); Neutrophils % (A) 40 %; Platelet Count 216 k/uL (150-450); RBC 3.92 m/uL (4.30-5.90); RDW 14.5 % (11.5-15.5)
[2017-07-29 19:30] LABS: INR 1.4 (<1.2); Partial Thromboplastin Time 32.1 sec (22.0-30.0)
[2017-07-29 19:34] LABS: Albumin 4.4 g/dL (3.5-5.0); Calcium 9.6 mg/dL (8.4-10.2); Magnesium 1.7 mg/dL (1.6-2.3); Potassium 4.2 mmol/L (3.5-5.1); Total Bilirubin 1.1 mg/dL (0.2-1.3); Total Protein 7.2 g/dL (6.3-8.2)
[2017-07-29 19:44] LABS: Creatine Kinase MB 0.9 ng/mL (0.0-2.4)
[2017-07-29 19:45] LABS: Troponin I 0.057 ng/mL (0.000-0.034)
--- NOTE | 2017-07-29 19:48 | XR ---
EXAMINATION TYPE: XR chest 2V DATE OF EXAM: 07/29/2017 COMPARISON: 05/20/2017 HISTORY: Short of breath TECHNIQUE: Frontal and lateral views of the chest are obtained. FINDINGS: Heart is enlarged. There is no heart failure. Thoracic aorta is atheromatous. There is a l eft axillary pacemaker with the lead tips in the right ventricle. There are sternal wires. There is s ome pleural thickening along the left lateral chest wall. IMPRESSION: Cardiomegaly. Left-sided pleural thickening. No gross heart failure. No significant saleh ge compared to old exam. Old left upper healed rib fractures.
[2017-07-29] MEDS ORDERED: NITROGLYCERIN SL TABS 0.4 MG TAB SUBLINGUAL PRN (20:08)
[2017-07-29] MEDS ORDERED: SODIUM CHLORIDE 0.9% 1,000 ML IV ONE (20:08)
[2017-07-29] MEDS ORDERED: FUROSEMIDE 10 MG/ML 10 ML VIAL IV STA (20:08)
[2017-07-29] MEDS: FUROSEMIDE 10 MG/ML 10 ML VIAL IV SCH (21:05)
[2017-07-30 01:21] LABS: Cholesterol 142 mg/dL (<200); HDL Cholesterol 35 mg/dL (40-60); LDL Cholesterol,Calculated 60 mg/dL (0-99); Triglycerides 235 mg/dL (<150)
[2017-07-30 01:25] LABS: Creatine Kinase MB 0.7 ng/mL (0.0-2.4)
[2017-07-30 01:36] LABS: Troponin I 0.052 ng/mL (0.000-0.034)
[2017-07-30 03:59] LABS: Glucose,Whole Blood 90 mg/dL (75-99)
[2017-07-30 04:13] VITALS: BMI 27.6
[2017-07-30 06:52] VITALS: PULSE 49
[2017-07-30 07:07] LABS: Basophils # (A) 0.1 k/uL (0-0.2); Basophils % (A) 1 %; Eosinophils # (A) 0.3 k/uL (0-0.7); Eosinophils % (A) 3 %; HCT 39.8 % (39.0-53.0); Lymphocytes # (A) 3.3 k/uL (1.0-4.8); Lymphocytes % (A) 39 %; MCH 32.6 pg (25.0-35.0); MCHC 32.8 g/dL (31.0-37.0); MCV 99.4 fL (80.0-100.0); Macrocytosis Slight; Mean Platelet Volume 8.3; Monocytes # (A) 0.6 k/uL (0-1.0); Monocytes % (A) 8 %; Neutrophils # (A) 3.8 k/uL (1.3-7.7); Neutrophils % (A) 46 %; Platelet Count 212 k/uL (150-450); RDW 14.6 % (11.5-15.5); WBC 8.3 k/uL (3.8-10.6)
[2017-07-30 07:27] LABS: Anion Gap 12 mmol/L; Blood Urea Nitrogen 23 mg/dL (9-20); Calcium 9.3 mg/dL (8.4-10.2); Carbon Dioxide 32 mmol/L (22-30); Chloride 100 mmol/L (98-107); Glucose 87 mg/dL (74-99); Magnesium 1.9 mg/dL (1.6-2.3); Phosphorus 3.8 mg/dL (2.5-4.5); Potassium 3.7 mmol/L (3.5-5.1); Sodium 144 mmol/L (137-145)
[2017-07-30 07:37] LABS: Creatine Kinase MB 0.8 ng/mL (0.0-2.4)
[2017-07-30 07:42] LABS: Troponin I 0.054 ng/mL (0.000-0.034)
--- NOTE | 2017-07-30 08:13 | XR ---
EXAMINATION TYPE: XR chest 1V portable DATE OF EXAM: 07/30/2017 COMPARISON: Prior chest 07/29/2017 HISTORY: Shortness of breath TECHNIQUE: Single frontal view of the chest is obtained. FINDINGS: Findings are similar to prior exam. Patient is post median sternotomy and the heart is enl arged. Defibrillator leads are stable. Surgical clips present in the left upper quadrant, old left-si ded rib fractures are noted. No pneumothorax or pleural effusion is evident. There are overlying card iac leads. No evident pneumonia. Interstitium and central vascularity mildly increased. IMPRESSION: Correlate for volume overload, pulmonary venous hypertension and interstitial edema, fol low-up recommended.
[2017-07-30] MEDS: FUROSEMIDE 10 MG/ML 10 ML VIAL IV SCH (08:28)
[2017-07-30] MEDS ORDERED: ASPIRIN 325 MG TAB PO SCH (09:00)
[2017-07-30] MEDS ORDERED: NITROGLYCERIN SL TABS 0.4 MG TAB SUBLINGUAL PRN (10:16)
[2017-07-30] MEDS ORDERED: HYDROcodone/APAP 10-325MG 1 EACH TAB PO PRN (10:16)
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
[2017-07-30] MEDS ORDERED: SPIRONOLACTONE 25 MG TAB PO SCH (11:15)
[2017-07-30] MEDS ORDERED: SORBITOL PO PRN (14:09)
[2017-07-30] MEDS ORDERED: SODIUM POLYSTYRENE SULFONATE PO PRN (14:09)
[2017-07-30] MEDS ORDERED: [UNRECOGNIZED DRUG - OTHER] PO PRN (14:09)
[2017-07-30 14:26] VITALS: BP 107/65; RESP 15; TEMP 98
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
[2017-07-30] MEDS ORDERED: FUROSEMIDE 40 MG TAB PO SCH (16:00)
[2017-07-30] MEDS ORDERED: FERROUS SULFATE 325 MG TAB PO SCH (21:00)
[2017-07-30] MEDS ORDERED: ATORVASTATIN 40 MG TAB PO SCH (21:00)
[2017-07-30] MEDS ORDERED: RIVAROXABAN 20 MG TAB PO SCH (21:00)
[2017-07-30] MEDS ORDERED: METOPROLOL TARTRATE 50 MG TAB PO SCH (21:00)
[2017-07-31] MEDS ORDERED: SERTRALINE 50 MG TAB PO SCH (09:00)
[2017-07-31] MEDS ORDERED: ISOSORBIDE MONONITRATE ER 30 MG TAB.ER.24H PO SCH (09:00)
[2017-07-31] MEDS ORDERED: CO Q-10 100MG PO SCH (09:00)
[2017-07-31] MEDS ORDERED: CONGAPLEX PO SCH (09:00)
[2017-07-31] MEDS ORDERED: MULTIVITAMINS, THERA 1 EACH TAB PO SCH (09:00)
== END 2017-07-30 15:48 | disposition home or self-care (01) | DRG 292 ==
LOC: EC 17:03 → 6SEL 20:15 → 6ICU 07-30 03:21
PROVIDERS: ADMIT Internal Medicine; ATTEND Internal Medicine
DX: I11.0 Hypertensive heart disease with heart failure (principal); I25.810 Atherosclerosis of coronary artery bypass graft(s) without angina pectoris; I50.43 Acute on chronic combined systolic (congestive) and diastolic (congestive) heart failure; E78.5 Hyperlipidemia, unspecified; F43.10 Post-traumatic stress disorder, unspecified; Z98.42 Cataract extraction status, left eye; Z98.41 Cataract extraction status, right eye; I25.2 Old myocardial infarction; I25.5 Ischemic cardiomyopathy; I25.82 Chronic total occlusion of coronary artery; I48.0 Paroxysmal atrial fibrillation; J44.9 Chronic obstructive pulmonary disease, unspecified; K21.9 Gastro-esophageal reflux disease without esophagitis; K44.9 Diaphragmatic hernia without obstruction or gangrene; K57.90 Diverticulosis of intestine, part unspecified, without perforation or abscess without bleeding; Z79.01 Long term (current) use of anticoagulants; Z79.82 Long term (current) use of aspirin; Z79.899 Other long term (current) drug therapy; Z80.0 Family history of malignant neoplasm of digestive organs; Z80.1 Family history of malignant neoplasm of trachea, bronchus and lung; Z82.3 Family history of stroke; Z82.49 Family history of ischemic heart disease and other diseases of the circulatory system; Z86.73 Personal history of transient ischemic attack (TIA), and cerebral infarction without residual deficits; Z87.442 Personal history of urinary calculi; Z87.891 Personal history of nicotine dependence; Z90.81 Acquired absence of spleen; Z95.1 Presence of aortocoronary bypass graft; Z95.810 Presence of automatic (implantable) cardiac defibrillator; Z87.01 Personal history of pneumonia (recurrent); Z86.79 Personal history of other diseases of the circulatory system; Z91.041 Radiographic dye allergy status; M19.90 Unspecified osteoarthritis, unspecified site; Z88.8 Allergy status to other drugs, medicaments and biological substances
CPT/HCPCS: 36415; 71045; 71046; 80048; 80053; 80061; 82550; 82553; 83735; 83880; 84100; 84484; 85025; 85610; 85730; 93005; 96374; 99285

== ENCOUNTER → 2017-08-07 | Outpatient (CLI) | payer OTHER ==
[2017-08-07 12:59] LABS: Basophils # (A) 0.1 k/uL (0-0.2); Basophils % (A) 1 %; Eosinophils # (A) 0.1 k/uL (0-0.7); Eosinophils % (A) 2 %; HCT 41.5 % (39.0-53.0); Lymphocytes # (A) 2.9 k/uL (1.0-4.8); Lymphocytes % (A) 46 %; MCH 33.6 pg (25.0-35.0); MCHC 33.6 g/dL (31.0-37.0); MCV 99.9 fL (80.0-100.0); Macrocytosis Slight; Mean Platelet Volume 8.2; Monocytes # (A) 0.5 k/uL (0-1.0); Monocytes % (A) 7 %; Neutrophils # (A) 2.4 k/uL (1.3-7.7); Neutrophils % (A) 39 %; Platelet Count 233 k/uL (150-450); RBC 4.15 m/uL (4.30-5.90); RDW 14.3 % (11.5-15.5); WBC 6.2 k/uL (3.8-10.6)
[2017-08-07 13:08] LABS: ALT 35 U/L (21-72); AST 27 U/L (17-59); Albumin 4.5 g/dL (3.5-5.0); Alkaline Phosphatase 80 U/L (38-126); Anion Gap 15 mmol/L; Blood Urea Nitrogen 26 mg/dL (9-20); C Reactive Protein <5.0 mg/L (<10.0); Calcium 9.8 mg/dL (8.4-10.2); Carbon Dioxide 27 mmol/L (22-30); Chloride 102 mmol/L (98-107); Cholesterol 133 mg/dL (<200); Creatine Kinase 76 U/L (55-170); Glucose 125 mg/dL (74-99); HDL Cholesterol 35 mg/dL (40-60); LDL Cholesterol,Calculated 75 mg/dL (0-99); Phosphorus 3.4 mg/dL (2.5-4.5); Potassium 4.4 mmol/L (3.5-5.1); Sodium 144 mmol/L (137-145); Total Protein 7.3 g/dL (6.3-8.2); Triglycerides 115 mg/dL (<150); Uric Acid 8.8 mg/dL (3.5-8.5)
[2017-08-07 13:22] LABS: T4, Free (Free Thyroxine) 1.05 ng/dL (0.78-2.19)
[2017-08-07 13:59] LABS: Prostate Specific Antigen <0.10 ng/mL (0.00-4.00)
[2017-08-07 19:28] LABS: Iron Saturation 23.56 (15.00-50.00)
[2017-08-07 19:36] LABS: Vitamin D 25 Hydroxy 23.1 ng/mL (30.0-100.0)
== END | disposition home or self-care (01) ==
LOC: LABWHC1 12:28
PROVIDERS: ATTEND Internal Medicine
DX: D64.9 Anemia, unspecified (principal); I50.9 Heart failure, unspecified; J44.9 Chronic obstructive pulmonary disease, unspecified; E11.9 Type 2 diabetes mellitus without complications; M10.9 Gout, unspecified; E78.5 Hyperlipidemia, unspecified; E03.9 Hypothyroidism, unspecified; E55.9 Vitamin D deficiency, unspecified; I25.9 Chronic ischemic heart disease, unspecified; I25.5 Ischemic cardiomyopathy; I71.9 Aortic aneurysm of unspecified site, without rupture; Z90.81 Acquired absence of spleen
CPT/HCPCS: 36415; 80053; 80061; 82306; 82550; 82728; 83036; 83540; 83550; 83735; 84100; 84153; 84439; 84443; 84550; 85025; 86140

== ENCOUNTER 2017-11-10 20:41 | Emergency (ER) | payer OTHER ==
[2017-11-10] MEDS ORDERED: SODIUM CHLORIDE 0.9% 500 ML IV STA (20:59)
[2017-11-10] MEDS ORDERED: SODIUM CHLORIDE 0.9% 1,000 ML IV STA ×2 (20:59→22:09)
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
[2017-11-10 21:25] VITALS: RESP 16
[2017-11-10 21:27] LABS: HCT 37.3 % (39.0-53.0); HGB 12.3 gm/dL (13.0-17.5); MCH 32.6 pg (25.0-35.0); MCV 98.7 fL (80.0-100.0); Mean Platelet Volume 8.4; Platelet Count 181 k/uL (150-450); RBC 3.77 m/uL (4.30-5.90); WBC 8.8 k/uL (3.8-10.6)
[2017-11-10 21:33] LABS: Calcium 9.1 mg/dL (8.4-10.2); Magnesium 2.3 mg/dL (1.6-2.3); Phosphorus 3.4 mg/dL (2.5-4.5); Potassium 4.2 mmol/L (3.5-5.1); Total Bilirubin 0.8 mg/dL (0.2-1.3)
[2017-11-10 21:37] LABS: Creatine Kinase 87 U/L (55-170)
[2017-11-10 21:50] LABS: Creatine Kinase MB 0.9 ng/mL (0.0-2.4); Troponin I <0.012 ng/mL (0.000-0.034)
[2017-11-10 21:54] LABS: Eosinophils # (M) 0.26 k/uL (0-0.7); Lymphocytes # (M) 5.37 k/uL (1.0-4.8); Monocytes # (M) 0.53 k/uL (0-1.0); Neutrophils # (M) 2.64 k/uL (1.3-7.7); Neutrophils % (M) 30 %; Nucleated Red Blood Cells 0 /100 WBC (0-0); Total Cells Counted 100
[2017-11-10 22:40] LABS: Appearance,Urine Cloudy (Clear); Bilirubin,Urine Negative (Negative); Blood,Urine Negative (Negative); Color,Urine Yellow; Glucose,Urine (UA) Negative (Negative); Hyaline Casts,Urine 50 /lpf (0-2); Ketones,Urine Negative (Negative); Leukocyte Esterase,Urine Negative (Negative); Mucus,Urine Rare /hpf; Nitrite,Urine Negative (Negative); Protein,Urine Negative (Negative); RBC,Urine 7 /hpf (0-5); Specific Gravity,Urine 1.017 (1.001-1.035); Squamous Epithelial Cell,Urine 1 /hpf (0-4); Urobilinogen,Urine <2.0 mg/dL (<2.0); WBC,Urine 4 /hpf (0-5)
[2017-11-10 23:01] VITALS: BP 123/73; PULSE 58; TEMP 98.2
== END 2017-11-10 23:05 | disposition home or self-care (01) ==
LOC: EC 20:41
DX: I95.9 Hypotension, unspecified (principal); E86.0 Dehydration; I48.91 Unspecified atrial fibrillation; I25.10 Atherosclerotic heart disease of native coronary artery without angina pectoris; E78.5 Hyperlipidemia, unspecified; I10 Essential (primary) hypertension; I25.2 Old myocardial infarction; D64.9 Anemia, unspecified; F43.10 Post-traumatic stress disorder, unspecified; Z86.73 Personal history of transient ischemic attack (TIA), and cerebral infarction without residual deficits; Z95.810 Presence of automatic (implantable) cardiac defibrillator; Z95.1 Presence of aortocoronary bypass graft; Z95.818 Presence of other cardiac implants and grafts; Z87.891 Personal history of nicotine dependence; Z79.01 Long term (current) use of anticoagulants; Z79.899 Other long term (current) drug therapy; Z88.8 Allergy status to other drugs, medicaments and biological substances; Z91.048 Other nonmedicinal substance allergy status; Z91.041 Radiographic dye allergy status
CPT/HCPCS: 36415; 80053; 81001; 82550; 82553; 83605; 83735; 84100; 84484; 85025; 93005; 96360; 96361; 99284

== ENCOUNTER → 2017-11-28 | Outpatient (CLI) | payer OTHER ==
--- NOTE | 2017-11-28 13:31 | XR ---
EXAMINATION TYPE: XR chest 2V DATE OF EXAM: 11/28/2017 COMPARISON: Prior chest x-ray 07/29/2017, 07/30/2017 HISTORY: Cough TECHNIQUE: Frontal and lateral views of the chest are obtained. FINDINGS: Patient is post median sternotomy. Heart appears enlarged and is stable, generator is pres ent in the left pectoral region, leads are present in the right atrium and ventricle. Surgical clips present in the left upper quadrant. No evident pneumothorax or pleural effusion. Pleural density candelaria cent to the left heart is a chronic finding may be due to pleural reaction. Multiple old rib fracture s again noted in the posterior left chest. Patient is status post aortic stent graft within the abdom en. IMPRESSION: No acute cardiopulmonary process. Cardiomegaly, old trauma and chronic pleural reaction.
== END | disposition home or self-care (01) ==
LOC: RADXRMAIN 13:09
PROVIDERS: ATTEND Internal Medicine
DX: I51.7 Cardiomegaly (principal); J98.4 Other disorders of lung; J44.9 Chronic obstructive pulmonary disease, unspecified
CPT/HCPCS: 71046

== ENCOUNTER → 2018-03-16 | Outpatient (CLI) | payer OTHER ==
[2018-03-16 19:44] LABS: Anion Gap 11.5 mmol/L (4.00-12.00); Calcium 9.6 mg/dL (8.7-10.3); Carbon Dioxide 28.5 mmol/L (21.6-31.8); Potassium 5.1 mmol/L (3.5-5.5)
== END | disposition home or self-care (01) ==
LOC: LABWHC1 13:00
PROVIDERS: ATTEND Internal Medicine
DX: E87.5 Hyperkalemia (principal)
CPT/HCPCS: 36415; 80048

== ENCOUNTER → 2018-05-29 | Outpatient (CLI) | payer OTHER ==
[2018-05-29 13:48] LABS: Anisocytosis Slight; Basophils # (A) 0.1 k/uL (0-0.2); Basophils % (A) 1 %; Eosinophils # (A) 0.2 k/uL (0-0.7); Eosinophils % (A) 3 %; HCT 39.4 % (39.0-53.0); Hypochromasia Marked; Lymphocytes # (A) 2.7 k/uL (1.0-4.8); Lymphocytes % (A) 44 %; MCH 33.5 pg (25.0-35.0); MCHC 30.5 g/dL (31.0-37.0); MCV 109.8 fL (80.0-100.0); Macrocytosis Marked; Mean Platelet Volume 7.5; Monocytes # (A) 0.6 k/uL (0-1.0); Monocytes % (A) 10 %; Neutrophils # (A) 2.4 k/uL (1.3-7.7); Neutrophils % (A) 39 %; Platelet Count 224 k/uL (150-450); Poikilocytosis Slight; RBC 3.58 m/uL (4.30-5.90); RDW 16.4 % (11.5-15.5); WBC 6.2 k/uL (3.8-10.6)
--- NOTE | 2018-05-29 14:08 | XR ---
EXAMINATION TYPE: XR chest 2V DATE OF EXAM: 05/29/2018 COMPARISON: Prior chest x-ray 11/28/2017 HISTORY: Shortness of breath and COPD, hyperlipidemia TECHNIQUE: Frontal and lateral views of the chest are obtained. FINDINGS: Patient is post median sternotomy. Intracardiac defibrillator leads are stable. Heart size is increased. There is blunting the costophrenic angles. No pneumothorax. Surgical clips present in the left upper quadrant, aortic stent graft suspected. No evident airspace disease. Interstitium is i ncreased. Old posterior left rib fractures are present. IMPRESSION: There are small pleural effusions. Postop changes. Cardiomegaly. Correlate for possible pulmonary venous hypertension and interstitial edema.
[2018-05-29 14:24] LABS: Albumin 3.5 g/dL (3.5-5.0); Total Bilirubin 2.1 mg/dL (0.2-1.3); Total Protein 6.3 g/dL (6.3-8.2)
[2018-05-29 14:38] LABS: T4, Free (Free Thyroxine) 1.62 ng/dL (0.78-2.19)
[2018-05-29 16:47] LABS: Erythrocyte Sedimentation Rate 8 mm/hr (0-15)
== END | disposition home or self-care (01) ==
LOC: RADXRMAIN 12:53
PROVIDERS: ATTEND Internal Medicine
DX: I51.7 Cardiomegaly (principal); J90 Pleural effusion, not elsewhere classified; I50.9 Heart failure, unspecified; E78.5 Hyperlipidemia, unspecified; I48.91 Unspecified atrial fibrillation; J44.9 Chronic obstructive pulmonary disease, unspecified; Z98.890 Other specified postprocedural states
CPT/HCPCS: 71046; 80053; 80061; 82550; 82977; 83735; 83880; 84439; 84443; 85025; 85652

== ENCOUNTER 2018-05-30 19:33 | Inpatient (IN) | payer OTHER ==
[2018-05-30] MEDS ORDERED: DILTIAZEM DRIP BOLUS FROM BAG 1 MG SOLN IV ONE (19:51)
[2018-05-30] MEDS ORDERED: SODIUM CHLORIDE 0.9% 1,000 ML IV STA ×2 (19:51)
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
[2018-05-30] MEDS ORDERED: DILTIAZEM 125 MG in SODIUM CHLORIDE 0.9% 100 ML IV SCH (20:00)
[2018-05-30 20:35] LABS: Anisocytosis Slight; Basophils # (A) 0.1 k/uL (0-0.2); Basophils % (A) 1 %; Eosinophils # (A) 0.2 k/uL (0-0.7); Eosinophils % (A) 3 %; HCT 37.6 % (39.0-53.0); HGB 11.6 gm/dL (13.0-17.5); Hypochromasia Marked; Lymphocytes # (A) 2.9 k/uL (1.0-4.8); Lymphocytes % (A) 38 %; MCHC 30.9 g/dL (31.0-37.0); Macrocytosis Marked; Mean Platelet Volume 8.7; Monocytes # (A) 0.6 k/uL (0-1.0); Monocytes % (A) 8 %; Neutrophils # (A) 3.4 k/uL (1.3-7.7); Neutrophils % (A) 46 %; Platelet Count 221 k/uL (150-450); Poikilocytosis Slight; RBC 3.51 m/uL (4.30-5.90); WBC 7.4 k/uL (3.8-10.6)
[2018-05-30 20:43] LABS: INR 1.4 (<1.2); Partial Thromboplastin Time 27.7 sec (22.0-30.0); Prothrombin Time 14.5 sec (9.0-12.0)
[2018-05-30 20:59] LABS: Albumin 3.6 g/dL (3.5-5.0); Calcium 9.4 mg/dL (8.4-10.2); Magnesium 1.8 mg/dL (1.6-2.3); Total Bilirubin 1.6 mg/dL (0.2-1.3); Total Protein 6.4 g/dL (6.3-8.2)
--- NOTE | 2018-05-30 21:23 | XR ---
EXAMINATION TYPE: XR chest 2V DATE OF EXAM: 05/30/2018 COMPARISON: Chest x-ray from yesterday. HISTORY: Chest pain [place]. Elevated heart rate with shortness of breath per patient. TECHNIQUE: Frontal and lateral views of the chest are obtained. FINDINGS: There is redemonstration of cardiomegaly with multilead pacemaker/AICD. Overlying sternal wires and mediastinal clips are redemonstrated. There are persistent small bilateral pleural effusion s. There is developing central vascular congestion. Surgical clips epigastric region are again seen. The osseous structures are intact. IMPRESSION: Correlate for worsening CHF exacerbation as there is cardiomegaly with persistent small bilateral pleural effusions and worsening central vascular congestion felt present.
[2018-05-30] MEDS ORDERED: IPRATROPIUM-ALBUTEROL 3 ML NEB INHALATION STA (22:07)
[2018-05-30] MEDS ORDERED: NITROGLYCERIN SL TABS 0.4 MG TAB SUBLINGUAL PRN ×2 (23:35→23:51)
[2018-05-30] MEDS ORDERED: BUMETANIDE 1 MG TAB PO SCH (23:42)
[2018-05-30] MEDS ORDERED: METOPROLOL TARTRATE 50 MG TAB PO SCH (23:45)
[2018-05-31] MEDS: METOPROLOL TARTRATE 50 MG TAB PO SCH ×2 (00:09→14:44)
[2018-05-31] MEDS: BUMETANIDE 1 MG TAB PO SCH ×2 (00:57→11:00)
[2018-05-31] MEDS: IPRATROPIUM-ALBUTEROL 3 ML NEB INHALATION PRN ×3 (01:19→11:13)
[2018-05-31] MEDS ORDERED: FUROSEMIDE 10 MG/ML 2 ML VIAL IV ONE (03:33)
[2018-05-31] MEDS: ONDANSETRON 4 MG/2 ML VIAL IVP PRN (03:44)
[2018-05-31] MEDS ORDERED: NON-FORMULARY DRUG (Umeclidinium Bromide [Incruse Ellipta] 1 PUFF) INHALATION SCH (08:00)
[2018-05-31] MEDS ORDERED: methylPREDNISolone SOD SUCCI 125 MG/2 ML VIAL IV STA (08:02)
[2018-05-31] MEDS ORDERED: CHOLECALCIFEROL 1,000 UNIT TAB PO SCH (09:00)
[2018-05-31] MEDS ORDERED: MAGNESIUM PO SCH (09:00)
[2018-05-31] MEDS ORDERED: SERTRALINE 50 MG TAB PO SCH (09:00)
[2018-05-31] MEDS ORDERED: SPIRONOLACTONE 25 MG TAB PO SCH (09:00)
[2018-05-31] MEDS ORDERED: FISH PO SCH (09:00)
[2018-05-31] MEDS ORDERED: NON-FORMULARY DRUG (Ubidecarenone [Co Q-10] 100 MG) PO SCH (09:00)
[2018-05-31] MEDS ORDERED: VITAMIN B COMPLEX PO SCH (09:00)
[2018-05-31] MEDS ORDERED: FLAX PO SCH (09:00)
[2018-05-31] MEDS ORDERED: BORAGE OIL PO SCH (09:00)
[2018-05-31] MEDS ORDERED: MILK THISTLE PO SCH (09:00)
[2018-05-31] MEDS ORDERED: MULTIVITAMINS, THERA 1 EACH TAB PO SCH (09:00)
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
[2018-05-31] MEDS: SERTRALINE 50 MG TAB PO SCH (11:00)
[2018-05-31] MEDS: SPIRONOLACTONE 25 MG TAB PO SCH (11:00)
[2018-05-31] MEDS: ISOSORBIDE MONONITRATE ER 30 MG TAB.ER.24H PO SCH (11:00)
[2018-05-31] MEDS: IPRATROPIUM-ALBUTEROL 3 ML NEB INHALATION SCH ×3 (11:46→20:28)
[2018-05-31] MEDS ORDERED: FUROSEMIDE 10 MG/ML 4 ML VIAL IV SCH (12:00)
[2018-05-31] MEDS: CHOLECALCIFEROL 1,000 UNIT TAB PO SCH (12:06)
[2018-05-31] MEDS: MULTIVITAMINS, THERA 1 EACH TAB PO SCH (12:06)
[2018-05-31] MEDS: methylPREDNISolone SOD SUCCI 125 MG/2 ML VIAL IV SCH ×3 (12:09→23:43)
--- NOTE | 2018-05-31 12:36 | CT ---
EXAMINATION TYPE: CT chest wo con DATE OF EXAM: 05/31/2018 COMPARISON: Radiograph 05/30/[address] 09/18/2015 HISTORY: 62-year-old male SOB TECHNIQUE: Contiguous axial scanning of the chest without IV contrast. Coronal and sagittal reconstru ctions performed. CT DLP: 397 mGycm Automated exposure control for dose reduction was used. FINDINGS: Left anterior chest wall AICD generator with right atrial and right ventricular leads. Heart mildly enlarged without pericardial effusion. Median sternotomy wires are present. Mild atherosclerotic arch calcifications with conventional arch vessel branching anatomy. Right and left main pulmonary arteries measure 2.8 and 2.9 cm, respectively, suggesting underlying pu lmonary arterial hypertension. Mediastinal lymph nodes increased in size measuring up to 1.2 cm right tracheobronchial angle and 1.5 cm AP window. There is narrowing of the collins and mainstem bronchi distally like configurations. Small right greater than left pleural effusions. Hazy dependent densities in the lungs. Some adjacent atelectasis at the lung bases. Tiny hiatal hernia. Multiple surgical clips below the diaphragm. Endovascular stent graft of the abdo john aorta partially visualized. Underlying hypodense lesions in the kidneys measuring up to at leas t 2.5 cm, inadequately characterized, probable cysts. Spleen surgically absent. Bones: Endplate spondylosis mid to lower thoracic spine. Multiple chronic posterior left-sided rib fr acture deformities some of which are chronically ununited. IMPRESSION: 1. CARDIOMEGALY, PULMONARY ARTERY HYPERTENSION, AND SMALL RIGHT GREATER THAN LEFT PLEURAL EFFUSIONS. HAZY DEPENDENT DENSITIES IN THE LUNGS. CORRELATE FOR CHF WITH PULMONARY VASCULAR CONGESTION. 2. SOME DEPENDENT ATELECTASIS ADJACENT TO THE EFFUSIONS. 3. MEDIASTINAL LYMPHADENOPATHY MEASURING UP TO 1.5 CM COULD BE REACTIVE. THREE-MONTH FOLLOW-UP CT [facility] RECOMMENDED TO ENSURE STABILITY/RESOLUTION. 4. TRACHEOBRONCHOMALACIA. THERE IS SLIT LIKE NARROWING OF THE MAINSTEM BRONCHI. CONSIDER PULMONARY RE FERRAL.
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
[2018-05-31] MEDS ORDERED: SODIUM CHLORIDE 0.9% 1,000 ML IV SCH (15:15)
[2018-05-31] MEDS ORDERED: FUROSEMIDE 10 MG/ML 10 ML VIAL IV STA (15:21)
[2018-05-31] MEDS ORDERED: RIVAROXABAN 20 MG TAB PO SCH ×2 (17:30→21:00)
--- NOTE | 2018-05-31 18:25 | HP ---
HISTORY AND PHYSICAL DATE OF ADMISSION: 05/30/2018. DATE OF SERVICE: 05/31/2018 This is a patient of Dr. Massey and he is being admitted by me as I am covering for Dr. Massey this weekend. HISTORY OF PRESENT ILLNESS: This is a 62-year-old white male who has a longstanding history of coronary artery disease and ischemic cardiomyopathy, chronic atrial fibrillation and chronic congestive heart failure and he was brought to the emergency room with complaints of increasing shortness of breath. In the emergency room, he was found to have atrial fibrillation with rapid ventricular response. He was started on Cardizem drip and the patient was admitted to the hospital for further evaluation and treatment. His CBC in the ER showed WBC count of 7.4 and hemoglobin 16, platelet count 221,000. Sodium 141, potassium 4.0, creatinine 1.02. Troponin 0.063. EKG showed atrial fibrillation with rapid ventricular response. Chest x-ray showed cardiomegaly and congestive heart failure. PAST MEDICAL HISTORY: Reveals that as mentioned before, he has his longstanding history of coronary artery disease. He has had a coronary artery bypass graft and AICD placement. He has hypertensive cardiovascular disease, chronic atrial fibrillation. There is also past history of CVA. CURRENT MEDICATIONS: Include Bumex 1 mg p.o. daily, Zanaflex 4 mg b.i.d. p.r.n. He is also taking multivitamins. Spironolactone 12.5 mg p.o. daily. Zoloft 50 mg p.o. daily, Xarelto 20 mg p.o. daily, nitroglycerin glycerin sublingual p.r.n., Lopressor 50 mg p.o. b.i.d., Ventolin inhaler 2 puffs q.6h p.r.n., Lipitor 80 mg p.o. daily, lisinopril. He also has been on lisinopril and Imdur. ALLERGIES: He has allergies to IODINE and IV CONTRAST. SOCIAL HISTORY: A nonsmoker and does not drink alcohol. FAMILY HISTORY: Strongly positive for heart disease. REVIEW OF SYSTEMS: Patient denies any headache. Appetite has been poor lately. He has no chest pain, but he has severe shortness of breath and he has no abdominal pain. He has no polyuria or dysuria. He has no neurological symptoms. PHYSICAL EXAMINATION: Reveals a 62-year-old white male who is obese and extremely short of breath using nasal oxygen constantly and he has been receiving updraft treatments. There is no jaundice. There is no generalized lymphadenopathy. No petechia or bruises. Pulse 98 per minute, is regular. He is afebrile. Neck is supple. Neck veins are not distended. Heart is in atrial fibrillation. The ventricular rate has come down to 96 per minute with a Cardizem drip. The examination of the ENT negative. Heart is in atrial fibrillation. Lungs reveal diminished breath sounds of both over both bases with small bilateral moist rales. Abdomen is soft and nontender. There is no mass palpable. Examination of the lower extremities reveal minimal bilateral pitting edema. Neurologic examination does not reveal any localizing signs. IMPRESSION: 1. Severe shortness of breath. 2. Acute on chronic congestive heart failure. 3. Systolic congestive heart failure with ejection fraction around 30. 4. Coronary artery disease with ischemic cardiomyopathy with a past history of coronary artery bypass graft. 5. Past history of cerebrovascular accident. 6. Chronic obstructive pulmonary disease. PLAN: Patient will be admitted to the hospital. Heart will be monitored with telemetry and we will get cardiology consultation. As he continues to be very dyspneic and wheezy, we will consult a local area network administrator, Dr. Chappell. I will also check a serum D-dimer and also get a CT scan of the chest without IV contrast as he is ALLERGIC to IODINE. Prognosis is guarded. The diagnosis, prognosis and therapeutic plans were discussed in detail with the patient. Dr. Massey, who is a his primary care physician will assume care of home of this patient starting tomorrow. MMODL / IJN: [id number] /
[2018-05-31 19:08] LABS: Appearance,Urine Cloudy (Clear); Bacteria,Urine Occasional /hpf; Bilirubin,Urine Negative (Negative); Blood,Urine Trace (Negative); Color,Urine Dark Brown; Glucose,Urine (UA) Negative (Negative); Granular Casts,Urine 41 /lpf (0); Hyaline Casts,Urine 38 /lpf (0-2); Ketones,Urine Negative (Negative); Leukocyte Esterase,Urine Negative (Negative); Mucus,Urine Rare /hpf; Nitrite,Urine Negative (Negative); Protein,Urine 1+ (Negative); RBC,Urine 3 /hpf (0-5); Specific Gravity,Urine 1.014 (1.001-1.035); WBC,Urine 1 /hpf (0-5)
[2018-05-31] MEDS: ATORVASTATIN 80 MG TAB PO SCH (20:12)
[2018-05-31] MEDS: METOPROLOL TARTRATE 25 MG TAB PO SCH (20:12)
[2018-05-31 20:53] LABS: Glucose,Whole Blood 144 mg/dL (75-99)
[2018-05-31] MEDS ORDERED: LISINOPRIL 5 MG TAB PO SCH (21:00)
[2018-05-31] MEDS: INSULIN ASPART (NovoLOG) 100 UNIT/ML VIAL SQ SCH (21:31)
[2018-06-01] MEDS: INSULIN ASPART (NovoLOG) 100 UNIT/ML VIAL SQ SCH ×4 (06:18→21:42)
[2018-06-01] MEDS: methylPREDNISolone SOD SUCCI 125 MG/2 ML VIAL IV SCH ×4 (06:28→23:02)
[2018-06-01 06:36] LABS: Glucose,Whole Blood 126 mg/dL (75-99)
[2018-06-01 07:02] LABS: Calcium 9.7 mg/dL (8.4-10.2)
[2018-06-01] MEDS: IPRATROPIUM-ALBUTEROL 3 ML NEB INHALATION SCH ×4 (07:47→20:57)
--- NOTE | 2018-06-01 08:36 | XR ---
EXAMINATION TYPE: XR chest 2V DATE OF EXAM: 06/01/2018 COMPARISON: 05/30/2018 TECHNIQUE: PA and lateral views submitted. HISTORY: Shortness of breath FINDINGS: Hyperinflation. Chronic rib deformities noted. Cardiac device and postsurgical changes with cardiomeg fernando. Bilateral small effusion and consolidation with diffuse interstitial pattern. Underlying COPD thompson spected. Arthropathy of the shoulders. IMPRESSION: 1. COPD with bilateral infiltrate and small effusion correlate for CHF.
[2018-06-01] MEDS: SERTRALINE 50 MG TAB PO SCH (09:07)
[2018-06-01] MEDS: ISOSORBIDE MONONITRATE ER 30 MG TAB.ER.24H PO SCH (09:08)
[2018-06-01] MEDS: SPIRONOLACTONE 25 MG TAB PO SCH (09:08)
[2018-06-01] MEDS: METOPROLOL TARTRATE 50 MG TAB PO SCH (09:08)
--- NOTE | 2018-06-01 09:18 | US ---
EXAMINATION TYPE: US kidneys/renal and bladder DATE OF EXAM: 06/01/2018 COMPARISON: US & CT CLINICAL HISTORY: low urine output. EXAM MEASUREMENTS: Right Kidney: 10.4 x 4.9 x 4.9 cm Left Kidney: 10.6 x 5.5 x 5.4 cm Right Kidney: cyst midpole measures 0.9 x 1.0 x 0.8 cm Left Kidney: cystic area midpole measures 2.2 x 2.5 x 1.9 cm Bladder: wnl Bilateral Jets seen: Yes Left kidney difficult to image due to bowel gas Incidental note is made of left pleural effusion There is no evidence for hydronephrosis at this point in time. No nephrolithiasis is seen. No oliverio s are identified. The urinary bladder is anechoic. Bilateral ureteral jets are seen. IMPRESSION: 1. Bilateral renal cysts. No hydronephrosis or nephrolithiasis. 2. Incidentally noted partially visualized trace left pleural effusion.
--- NOTE | 2018-06-01 11:21 | ECHOF ---
Referral Reason:sob MEASUREMENTS -------- HEIGHT: 180.3 cm WEIGHT: 88.9 kg BP: 106/4 RVIDd: 4.5 cm (< 3.3) IVSd: 1.8 cm (0.6 - 1.1) LVIDd: 4.6 cm (3.9 - 5.3) LVPWd: 1.4 cm (0.6 - 1.1) IVSs: 1.8 cm LVIDs: 4.1 cm LVPWs: 1.7 cm LA Diam: 4.5 cm (2.7 - 3.8) LAESV Index (A-L): 64.11 ml/m Ao Diam: 3.0 cm (2.0 - 3.7) AV Cusp: 1.9 cm (1.5 - 2.6) MV EXCURSION: 22.907 mm (> 18.000) MV EF SLOPE: 174 mm/s (70 - 150) EPSS: 1.1 cm RAP: 15.00 mmHg RVSP: 42.12 mmHg FINDINGS -------- Atrial fibrillation. This was a technically difficult study with suboptimal apical views. The left ventricular size is normal. There is moderate concentric left ventricular hypertrophy. O verall left ventricular systolic function is severely impaired with, an EF between 20 - 25 %. The right ventricle is severely enlarged. LA is severely dilated >40 ml/m2 The right atrium is normal in size. 5 ml of Lumason was utilized for enhancement of images. There is mild aortic valve sclerosis. The mitral valve leaflets are mildly thickened. Mild mitral annular calcification present. Modera [id number] mitral regurgitation is present. Mild tricuspid regurgitation present. There is mild pulmonary hypertension. The right ventricular systolic pressure, as measured by Doppler, is 42.12mmHg. Trace/mild (physiologic) pulmonic regurgitation. The aortic root size is normal. The inferior vena cava is dilated with no significant inspiratory collapse which is consistent estima agustín right atrial pressure of 15 mmHg. There is no pericardial effusion. CONCLUSIONS -------- 1. Atrial fibrillation. 2. This was a technically difficult study with suboptimal apical views. 3. The left ventricular size is normal. 4. There is moderate concentric left ventricular hypertrophy. 5. Overall left ventricular systolic function is severely impaired with, an EF between 20 - 25 %. 6. The right ventricle is severely enlarged. 7. LA is severely dilated >40 ml/m2 8. The right atrium is normal in size. 9. 5 ml of Lumason was utilized for enhancement of images. 10. There is mild aortic valve sclerosis. 11. The mitral valve leaflets are mildly thickened. 12. Mild mitral annular calcification present. 13. [id number] mitral regurgitation is present. 14. Mild tricuspid regurgitation present. 15. There is mild pulmonary hypertension. 16. The right ventricular systolic pressure, as measured by Doppler, is 42.12mmHg. 17. Trace/mild (physiologic) pulmonic regurgitation. 18. The aortic root size is normal. 19. The inferior vena cava is dilated with no significant inspiratory collapse which is consistent es timated right atrial pressure of 15 mmHg. 20. There is no pericardial effusion. SDV PILOT/NAVIGATOR/DDS OPERATOR: Myla Zee RDCS
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
[2018-06-01] MEDS: MULTIVITAMINS, THERA 1 EACH TAB PO SCH (11:52)
[2018-06-01] MEDS: CHOLECALCIFEROL 1,000 UNIT TAB PO SCH (11:52)
[2018-06-01 12:07] LABS: Glucose,Whole Blood 116 mg/dL (75-99)
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
[2018-06-01] MEDS: PANTOPRAZOLE 40 MG TABLET PO SCH (13:58)
[2018-06-01] MEDS: RIVAROXABAN 15 MG TAB PO SCH (17:21)
[2018-06-01 17:25] LABS: Glucose,Whole Blood 106 mg/dL (75-99)
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
[2018-06-01] MEDS: ATORVASTATIN 80 MG TAB PO SCH (20:15)
[2018-06-01] MEDS: METOPROLOL TARTRATE 25 MG TAB PO SCH (20:15)
[2018-06-01] MEDS ORDERED: CALCIUM CARBONATE 500 MG CHEWABLE PO PRN (20:30)
[2018-06-01] MEDS: CALCIUM CARBONATE 500 MG CHEWABLE PO PRN (20:44)
[2018-06-01 21:17] LABS: Glucose,Whole Blood 166 mg/dL (75-99)
--- NOTE | 2018-06-01 21:23 | CONS ---
CONSULTATION Mr. Yates is a gentleman with ischemic cardiomyopathy and atrial fibrillation. He came in with congestive heart failure, was given some diuretics and has developed some acute kidney injury. Nephrology has seen the patient. His urine output has improved somewhat. He remains in atrial fibrillation. Rate is better controlled. S1, S2 heard normally. JVD is evident. Lungs are clear. Abdomen and lower extremity exam unchanged. Plan is to continue current medications. Await input from Nephrology. Avoid excessive diuresis at this time. Prognosis remains guarded. This patient has ischemic cardiomyopathy, ICD and clinically he may be a bit prerenal today. MMODL / IJN: [id number] /
[2018-06-02] MEDS: IPRATROPIUM-ALBUTEROL 3 ML NEB INHALATION PRN (00:36)
[2018-06-02] MEDS: CALCIUM CARBONATE 500 MG CHEWABLE PO PRN ×3 (04:25→22:14)
[2018-06-02 06:29] LABS: Glucose,Whole Blood 145 mg/dL (75-99)
[2018-06-02] MEDS: methylPREDNISolone SOD SUCCI 125 MG/2 ML VIAL IV SCH ×4 (06:47→23:20)
[2018-06-02] MEDS: INSULIN ASPART (NovoLOG) 100 UNIT/ML VIAL SQ SCH ×4 (06:47→21:26)
[2018-06-02] MEDS: PANTOPRAZOLE 40 MG TABLET PO SCH (06:47)
[2018-06-02 07:25] LABS: Calcium 9.7 mg/dL (8.4-10.2); Magnesium 2.2 mg/dL (1.6-2.3); Potassium 4.9 mmol/L (3.5-5.1)
[2018-06-02 07:39] LABS: Basophils % (A) 0 %; Eosinophils % (A) 0 %; HCT 37.3 % (39.0-53.0); HGB 11.4 gm/dL (13.0-17.5); Hypochromasia Moderate; Lymphocytes # (A) 0.7 k/uL (1.0-4.8); Lymphocytes % (A) 7 %; MCH 32.8 pg (25.0-35.0); MCHC 30.4 g/dL (31.0-37.0); MCV 107.9 fL (80.0-100.0); Macrocytosis Marked; Mean Platelet Volume 10.1; Monocytes # (A) 0.4 k/uL (0-1.0); Monocytes % (A) 4 %; Neutrophils # (A) 9.2 k/uL (1.3-7.7); Neutrophils % (A) 88 %; Platelet Count 133 k/uL (150-450); RBC 3.46 m/uL (4.30-5.90); RDW 15.9 % (11.5-15.5); WBC 10.4 k/uL (3.8-10.6)
[2018-06-02] MEDS: CHOLECALCIFEROL 1,000 UNIT TAB PO SCH (08:20)
[2018-06-02] MEDS: MULTIVITAMINS, THERA 1 EACH TAB PO SCH (08:20)
[2018-06-02] MEDS: SERTRALINE 50 MG TAB PO SCH (08:21)
[2018-06-02] MEDS: ISOSORBIDE MONONITRATE ER 30 MG TAB.ER.24H PO SCH (08:21)
[2018-06-02] MEDS: METOPROLOL TARTRATE 50 MG TAB PO SCH (08:21)
[2018-06-02] MEDS: IPRATROPIUM-ALBUTEROL 3 ML NEB INHALATION SCH ×4 (08:53→19:53)
[2018-06-02 10:42] LABS: Polychromasia Present
[2018-06-02 10:43] LABS: Target Cells Present
--- NOTE | 2018-06-02 10:45 | P.PN ---
Subjective Patient is seen in follow-up for acute kidney injury. Currently sitting up in chair. Denies chest pain or shortness of breath. Patient has history of systolic CHF with ejection fraction of 20-25% status post AICD placement. He is also noted to have moderate to severe mitral regurgitation. No edema. No vomiting or diarrhea. Oral intake is good. Urine output is also good. Vital signs are stable. General: The patient appeared well nourished and normally developed. HEENT: Head exam is unremarkable. Neck is without jugular venous distension. LUNGS: Breath sounds decreased. HEART: Rate and Rhythm are regular. First and second heart sounds normal. No murmurs, rubs or gallops. ABDOMEN: Abdominal exam reveals normal bowel sounds. Non-tender and non- distended. No evidence of peritonitis. EXTREMITITES: No clubbing, cyanosis, or edema. Objective - Vital Signs Vital signs: Vital Signs Temp 97.8 F 06/02/18 08:00 Pulse 80 06/02/18 09:05 Resp 18 06/02/18 08:00 BP 116/83 06/02/18 08:00 Pulse Ox 95 06/02/18 08:00 Intake & Output 06/01/18 06/02/18 06/02/18 18:59 06:59 18:59 Intake Total 1200 120 Output Total 1100 600 Balance 100 -600 120 Weight 89.6 kg Intake: Oral 1200 120 Output: Urine 1100 600 Other: Voiding Method Urinal Urinal # Voids 3 - Labs CBC & Chem 7: 06/02/18 06:41 06/02/18 06:41 Labs: Abnormal Lab Results - Last 24 Hours (Table) 06/01/18 06/01/18 06/01/18 Range/Units 12:03 17:06 21:15 RBC (4.30-5.90) m/uL Hgb (13.0-17.5) gm/dL Hct (39.0-53.0) % MCV (80.0-100.0) fL MCHC (31.0-37.0) g/dL RDW (11.5-15.5) % Plt Count (150-450) k/uL BUN (9-20) mg/dL Creatinine (0.66-1.25) mg/dL Glucose (74-99) mg/dL POC Glucose (mg/dL) 116 H 106 H 166 H (75-99) mg/dL 06/02/18 06/02/18 06/02/18 Range/Units 06:27 06:41 06:41 RBC 3.46 L (4.30-5.90) m/uL Hgb 11.4 L (13.0-17.5) gm/dL Hct 37.3 L (39.0-53.0) % MCV 107.9 H (80.0-100.0) fL MCHC 30.4 L (31.0-37.0) g/dL RDW 15.9 H (11.5-15.5) % Plt Count 133 L (150-450) k/uL BUN 55 H (9-20) mg/dL Creatinine 2.03 H (0.66-1.25) mg/dL Glucose 115 H (74-99) mg/dL POC Glucose (mg/dL) 145 H (75-99) mg/dL Assessment and Plan Plan: Assessment: 1. Acute kidney injury secondary to ATN secondary to hemodynamic instability and cardiorenal syndrome. Renal function stable. Creatinine 2.03 today. Baseline creatinine near 1. No evidence of hydronephrosis noted on renal ultrasound. 2. A. fib with RVR maintained on Lopressor and Xarelto. Heart rate controlled. 3. Volume overload. Improved. 4. Systolic CHF with ejection fraction of 20-25% with moderate to severe mitral regurgitation. Plan: Resume home dose of Bumex. Avoid nephrotoxins. Continue to monitor renal function and urine output. Repeat electrolytes in the morning.
[2018-06-02 11:43] LABS: Glucose,Whole Blood 114 mg/dL (75-99)
[2018-06-02] MEDS: BUMETANIDE 1 MG TAB PO SCH (12:24)
[2018-06-02 16:38] LABS: Glucose,Whole Blood 128 mg/dL (75-99)
--- NOTE | 2018-06-02 16:41 | PN ---
PROGRESS NOTE Mr. Yates is in atrial fibrillation. Rate control is better. He is making more urine. His creatinine has come down modestly. He has ischemic cardiomyopathy and also had acute renal injury, from which he is recovering slowly. Vitals are stable. JVD is 1 cm. No carotid bruit. S1, S2 heard normally. Short systolic murmur noted. Lungs reveal diminished air entry. Abdomen and lower extremity exam is unchanged. Plan is to continue current medications, including his home dose of Bumex. MMODL / IJN: [id number] /
[2018-06-02] MEDS: RIVAROXABAN 15 MG TAB PO SCH (16:49)
[2018-06-02] MEDS: BENZOCAINE/MENTHOL LOZENG 1 EACH LOZENGE MUCOUS MEM PRN ×2 (19:25→23:20)
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
[2018-06-02 21:27] LABS: Glucose,Whole Blood 121 mg/dL (75-99)
[2018-06-02] MEDS: METOPROLOL TARTRATE 25 MG TAB PO SCH (21:35)
[2018-06-02] MEDS: ATORVASTATIN 40 MG TAB PO SCH (21:35)
[2018-06-03] MEDS: IPRATROPIUM-ALBUTEROL 3 ML NEB INHALATION PRN ×2 (00:32→17:23)
[2018-06-03] MEDS: IPRATROPIUM-ALBUTEROL 3 ML NEB INHALATION SCH ×4 (05:44→20:25)
[2018-06-03 05:45] LABS: Glucose,Whole Blood 137 mg/dL (75-99)
[2018-06-03] MEDS: methylPREDNISolone SOD SUCCI 125 MG/2 ML VIAL IV SCH ×4 (06:35→22:56)
[2018-06-03] MEDS: INSULIN ASPART (NovoLOG) 100 UNIT/ML VIAL SQ SCH ×4 (06:36→21:10)
[2018-06-03 06:40] LABS: Glucose,Whole Blood 132 mg/dL (75-99)
[2018-06-03 06:53] LABS: Magnesium 2.3 mg/dL (1.6-2.3); Potassium 5.5 mmol/L (3.5-5.1)
[2018-06-03 07:03] LABS: Anisocytosis Slight; Basophils % (A) 0 %; Eosinophils % (A) 0 %; HGB 12.5 gm/dL (13.0-17.5); Hypochromasia Marked; Lymphocytes # (A) 0.8 k/uL (1.0-4.8); Lymphocytes % (A) 8 %; MCH 33.1 pg (25.0-35.0); MCHC 30.5 g/dL (31.0-37.0); MCV 108.4 fL (80.0-100.0); Mean Platelet Volume 10.1; Monocytes # (A) 0.6 k/uL (0-1.0); Monocytes % (A) 6 %; Neutrophils # (A) 8.6 k/uL (1.3-7.7); Neutrophils % (A) 85 %; Platelet Count 122 k/uL (150-450); RBC 3.78 m/uL (4.30-5.90); WBC 10.2 k/uL (3.8-10.6)
[2018-06-03 07:04] LABS: Macrocytosis Marked
[2018-06-03] MEDS: ISOSORBIDE MONONITRATE ER 30 MG TAB.ER.24H PO SCH (08:11)
[2018-06-03] MEDS: METOPROLOL TARTRATE 50 MG TAB PO SCH (08:12)
[2018-06-03] MEDS: SERTRALINE 50 MG TAB PO SCH (08:12)
[2018-06-03] MEDS: BENZOCAINE/MENTHOL LOZENG 1 EACH LOZENGE MUCOUS MEM PRN (08:12)
[2018-06-03] MEDS: PANTOPRAZOLE 40 MG TABLET PO SCH (08:12)
[2018-06-03] MEDS: ONDANSETRON 4 MG/2 ML VIAL IVP PRN (08:22)
[2018-06-03 11:16] LABS: Glucose,Whole Blood 144 mg/dL (75-99)
--- NOTE | 2018-06-03 11:31 | P.PN ---
Subjective Patient is seen in follow-up for acute kidney injury. Currently sitting up in chair. He had an episode of vomiting this morning. Feels nauseated. Patient has history of systolic CHF with ejection fraction of 20-25% status post AICD placement. He is also noted to have moderate to severe mitral regurgitation. No edema. Vital signs are stable. General: The patient appeared well nourished and normally developed. HEENT: Head exam is unremarkable. Neck is without jugular venous distension. LUNGS: Breath sounds decreased. HEART: Rate and Rhythm are regular. First and second heart sounds normal. No murmurs, rubs or gallops. ABDOMEN: Abdominal exam reveals normal bowel sounds. Non-tender and non- distended. No evidence of peritonitis. EXTREMITITES: No clubbing, cyanosis, or edema. Objective - Vital Signs Vital signs: Vital Signs Temp 97.1 F L 06/03/18 00:00 Pulse 112 H 06/03/18 11:24 Resp 22 06/03/18 08:00 BP 146/95 06/03/18 08:00 Pulse Ox 86 L 06/03/18 11:24 Intake & Output 06/02/18 06/03/18 06/03/18 18:59 06:59 18:59 Intake Total 360 240 Output Total 300 Balance 360 -300 240 Weight 89.5 kg Intake: Oral 360 240 Output: Urine 300 Other: # Voids 1 - Labs CBC & Chem 7: 06/03/18 05:56 06/03/18 05:56 Labs: Abnormal Lab Results - Last 24 Hours (Table) 06/02/18 06/02/18 06/02/18 Range/Units 11:39 16:35 21:25 RBC (4.30-5.90) m/uL Hgb (13.0-17.5) gm/dL MCV (80.0-100.0) fL MCHC (31.0-37.0) g/dL RDW (11.5-15.5) % Plt Count (150-450) k/uL Neutrophils # (1.3-7.7) k/uL Lymphocytes # (1.0-4.8) k/uL Potassium (3.5-5.1) mmol/L BUN (9-20) mg/dL Creatinine (0.66-1.25) mg/dL Glucose (74-99) mg/dL POC Glucose (mg/dL) 114 H 128 H 121 H (75-99) mg/dL 06/03/18 06/03/18 06/03/18 Range/Units 05:33 05:56 05:56 RBC 3.78 L (4.30-5.90) m/uL Hgb 12.5 L (13.0-17.5) gm/dL MCV 108.4 H (80.0-100.0) fL MCHC 30.5 L (31.0-37.0) g/dL RDW 16.0 H (11.5-15.5) % Plt Count 122 L (150-450) k/uL Neutrophils # 8.6 H (1.3-7.7) k/uL Lymphocytes # 0.8 L (1.0-4.8) k/uL Potassium 5.5 H (3.5-5.1) mmol/L BUN 72 H (9-20) mg/dL Creatinine 2.42 H (0.66-1.25) mg/dL Glucose 124 H (74-99) mg/dL POC Glucose (mg/dL) 137 H (75-99) mg/dL 06/03/18 06/03/18 Range/Units 06:23 11:13 RBC (4.30-5.90) m/uL Hgb (13.0-17.5) gm/dL MCV (80.0-100.0) fL MCHC (31.0-37.0) g/dL RDW (11.5-15.5) % Plt Count (150-450) k/uL Neutrophils # (1.3-7.7) k/uL Lymphocytes # (1.0-4.8) k/uL Potassium (3.5-5.1) mmol/L BUN (9-20) mg/dL Creatinine (0.66-1.25) mg/dL Glucose (74-99) mg/dL POC Glucose (mg/dL) 132 H 144 H (75-99) mg/dL Assessment and Plan Plan: Assessment: 1. Acute kidney injury secondary to ATN secondary to hemodynamic instability and cardiorenal syndrome. Renal function worse today which is due to diuresis. Baseline creatinine near 1. No evidence of hydronephrosis noted on renal ultrasound. 2. A. fib with RVR maintained on Lopressor and Xarelto. Heart rate controlled. 3. Volume overload. Improved. 4. Systolic CHF with ejection fraction of 20-25% with moderate to severe mitral regurgitation. Plan: Maintain current dose of Bumex. Avoid nephrotoxins. Continue to monitor renal function and urine output. Repeat electrolytes in the morning.
[2018-06-03] MEDS: MULTIVITAMINS, THERA 1 EACH TAB PO SCH (12:18)
[2018-06-03] MEDS: CHOLECALCIFEROL 1,000 UNIT TAB PO SCH (12:18)
[2018-06-03] MEDS: BUMETANIDE 1 MG TAB PO SCH (12:19)
--- NOTE | 2018-06-03 14:33 | P.PN ---
Subjective Progress Note Date: 06/03/18 This is a pleasant 62-year-old male past medical history significant for coronary artery disease status post bypass grafting in 1998, ischemic cardiomyopathy status post AICD placement, hypertension, chronic persistent atrial fibrillation on long-term anticoagulation, dyslipidemia and CVA in 2014. He follows in the office with Dr. Osman. He presented to the hospital secondary to palpitations and shortness of breath. Patient was seen and examined this morning, states that he had some vomiting earlier in the day and continue to feel mildly nauseated. He continues to be in atrial fibrillation. Heart rate in the 80s to 90s. White blood cell count 10.2, hemoglobin 12.5, platelet count 122. Sodium 137, potassium 5.5, BUN 72 and creatinine 2.4. NEC and 2.3. Patient is being followed by Dr. Askew, diuretic management per his orders. Objective - Vital Signs Vital signs: Vital Signs Temp 97.1 F L 06/03/18 00:00 Pulse 80 06/03/18 12:00 Resp 22 06/03/18 12:00 BP 108/87 06/03/18 12:00 Pulse Ox 91 L 06/03/18 12:00 Intake & Output 06/02/18 06/03/18 06/03/18 18:59 06:59 18:59 Intake Total 360 240 Output Total 300 Balance 360 -300 240 Weight 89.5 kg Intake: Oral 360 240 Output: Urine 300 Other: # Voids 1 - Exam Blood pressure 100/68 heart rate 63 afebrile maintaining oxygen saturation on nasal cannula GENERAL: This is a 62-year-old male in no apparent distress at the time of my examination. HEENT: Head is atraumatic, normocephalic. Pupils are equal, round. Sclerae anicteric. Conjunctivae are clear. Mucous membranes of the mouth are moist. Neck is supple. There is no jugular venous distention. No carotid bruit is heard. LUNGS: Bibasilar raises with expiratory wheezes, no rhonchi. No chest wall tenderness is noted on palpation or with deep breathing. HEART: Irregular rate and rhythm without murmurs, rubs or gallops. S1 and S2 heard. ABDOMEN: Soft, nontender, mildly distended. Bowel sounds are heard. No organomegaly noted. EXTREMITIES: No evidence of peripheral edema and no calf tenderness noted. VASCULAR: Radial and dorsalis pedis pulses palpated, no evidence of clubbing. NEUROLOGIC: Patient is awake, alert and oriented x3. - Labs CBC & Chem 7: 06/03/18 05:56 06/03/18 05:56 Labs: Abnormal Lab Results - Last 24 Hours (Table) 06/02/18 06/02/18 06/03/18 Range/Units 16:35 21:25 05:33 RBC (4.30-5.90) m/uL Hgb (13.0-17.5) gm/dL MCV (80.0-100.0) fL MCHC (31.0-37.0) g/dL RDW (11.5-15.5) % Plt Count (150-450) k/uL Neutrophils # (1.3-7.7) k/uL Lymphocytes # (1.0-4.8) k/uL Potassium (3.5-5.1) mmol/L BUN (9-20) mg/dL Creatinine (0.66-1.25) mg/dL Glucose (74-99) mg/dL POC Glucose (mg/dL) 128 H 121 H 137 H (75-99) mg/dL 06/03/18 06/03/18 06/03/18 Range/Units 05:56 05:56 06:23 RBC 3.78 L (4.30-5.90) m/uL Hgb 12.5 L (13.0-17.5) gm/dL MCV 108.4 H (80.0-100.0) fL MCHC 30.5 L (31.0-37.0) g/dL RDW 16.0 H (11.5-15.5) % Plt Count 122 L (150-450) k/uL Neutrophils # 8.6 H (1.3-7.7) k/uL Lymphocytes # 0.8 L (1.0-4.8) k/uL Potassium 5.5 H (3.5-5.1) mmol/L BUN 72 H (9-20) mg/dL Creatinine 2.42 H (0.66-1.25) mg/dL Glucose 124 H (74-99) mg/dL POC Glucose (mg/dL) 132 H (75-99) mg/dL 06/03/18 Range/Units 11:13 RBC (4.30-5.90) m/uL Hgb (13.0-17.5) gm/dL MCV (80.0-100.0) fL MCHC (31.0-37.0) g/dL RDW (11.5-15.5) % Plt Count (150-450) k/uL Neutrophils # (1.3-7.7) k/uL Lymphocytes # (1.0-4.8) k/uL Potassium (3.5-5.1) mmol/L BUN (9-20) mg/dL Creatinine (0.66-1.25) mg/dL Glucose (74-99) mg/dL POC Glucose (mg/dL) 144 H (75-99) mg/dL Assessment and Plan Plan: Assessment and plan #1 Atrial fibrillation with rapid ventricular response on admission. Chronic afib on nursing home anti-coagulataion. #2 Mild troponin leak, chronically elevated without typical pattern suggestive of IL. Not suggestive of an acute event. #3 Acute on chronic systolic heart failure, ejection fraction 20% #4 Ischemic cardiomyopathy #5 Coronary artery disease status post bypass grafting with only SANTORO to LAD patent are 2017 #6 Hypertension #7 Dyslipidemia #8 History of CVA Cardiology's perspective, we'll recommend at this time to continue the patient on his current medications. Once he is discharged home from the hospital he will follow-up with Dr. VC Osman in the office. DNP note has been reviewed, I agree with a documented findings and plan of care. Patient was seen and examined.
[2018-06-03 15:57] LABS: Folate, Serum >24.0 ng/mL
[2018-06-03 16:00] LABS: Vitamin B12 >4000.0 pg/mL (211-911)
[2018-06-03 17:01] LABS: Glucose,Whole Blood 133 mg/dL (75-99)
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
[2018-06-03] MEDS: RIVAROXABAN 15 MG TAB PO SCH (17:16)
[2018-06-03] MEDS ORDERED: FAMOTIDINE 20 MG TAB PO SCH (21:00)
[2018-06-03 21:07] LABS: Glucose,Whole Blood 131 mg/dL (75-99)
[2018-06-03] MEDS: ATORVASTATIN 40 MG TAB PO SCH (21:13)
[2018-06-03] MEDS: METOPROLOL TARTRATE 25 MG TAB PO SCH (21:13)
[2018-06-04 06:04] LABS: Glucose,Whole Blood 116 mg/dL (75-99)
[2018-06-04] MEDS: INSULIN ASPART (NovoLOG) 100 UNIT/ML VIAL SQ SCH ×4 (06:09→21:00)
[2018-06-04] MEDS: methylPREDNISolone SOD SUCCI 125 MG/2 ML VIAL IV SCH (06:11)
[2018-06-04] MEDS: PANTOPRAZOLE 40 MG TABLET PO SCH (06:11)
[2018-06-04] MEDS: IPRATROPIUM-ALBUTEROL 3 ML NEB INHALATION SCH ×4 (07:05→20:12)
[2018-06-04 08:29] LABS: Calcium 9.1 mg/dL (8.4-10.2); Magnesium 2.4 mg/dL (1.6-2.3); Potassium 5.9 mmol/L (3.5-5.1)
--- NOTE | 2018-06-04 08:59 | XR ---
EXAMINATION TYPE: XR chest 2V DATE OF EXAM: 06/04/2018 COMPARISON: 06/01/2018 TECHNIQUE: PA and lateral views submitted. HISTORY: Shortness of breath FINDINGS: Hyperinflation. Chronic rib deformities noted. Cardiac device and postsurgical changes with cardiomeg fernando. Bilateral small effusion and consolidation with diffuse interstitial pattern. Underlying COPD thompson spected. Arthropathy of the shoulders. Surgical clips in the abdomen noted. IMPRESSION: 1. Stable x-ray demonstrating bilateral infiltrate and pleural effusion correlate for pulmonary edema . Underlying pneumonia not excluded.
[2018-06-04] MEDS: BUMETANIDE 1 MG TAB PO SCH ×2 (09:43→09:45)
[2018-06-04] MEDS: SERTRALINE 50 MG TAB PO SCH (09:43)
[2018-06-04] MEDS: ISOSORBIDE MONONITRATE ER 30 MG TAB.ER.24H PO SCH (09:43)
[2018-06-04] MEDS: METOPROLOL TARTRATE 50 MG TAB PO SCH (09:43)
[2018-06-04] MEDS ORDERED: FUROSEMIDE 10 MG/ML 10 ML VIAL IV STA ×2 (09:55→15:01)
[2018-06-04] MEDS ORDERED: INSULIN REGULAR 100 UNIT/ML VIAL IV ONE (10:27)
[2018-06-04] MEDS ORDERED: DEXTROSE 50%-WATER 50 ML SYRINGE IVP STA (10:27)
--- NOTE | 2018-06-04 10:29 | P.PN ---
Subjective Patient is seen in follow-up for acute kidney injury. Currently sitting up in chair. Patient has history of systolic CHF with ejection fraction of 20-25% status post AICD placement. He is also noted to have moderate to severe mitral regurgitation. Patient complains of wheezing. He is quite dyspneic. Renal function is worsening. Creatinine 3.31 today. Vital signs are stable. General: The patient appeared well nourished and normally developed. HEENT: Head exam is unremarkable. Neck is without jugular venous distension. LUNGS: Breath sounds decreased. Scattered rhonchi. HEART: Rate and Rhythm are regular. First and second heart sounds normal. No murmurs, rubs or gallops. ABDOMEN: Abdominal exam reveals normal bowel sounds. Non-tender and non- distended. No evidence of peritonitis. EXTREMITITES: 1+ edema. Objective - Vital Signs Vital signs: Vital Signs Temp 97.0 F L 06/04/18 04:00 Pulse 103 H 06/04/18 08:00 Resp 22 06/04/18 08:00 BP 103/67 06/04/18 08:00 Pulse Ox 91 L 06/04/18 08:00 Intake & Output 06/03/18 06/04/18 06/04/18 18:59 06:59 18:59 Intake Total 580 10 120 Output Total 700 Balance -120 10 120 Weight 90.6 kg Intake: IV 10 0.9 10 Oral 580 120 Output: Urine 700 Other: Voiding Method Urinal # Voids 1 - Labs CBC & Chem 7: 06/03/18 05:56 06/04/18 07:23 Labs: Abnormal Lab Results - Last 24 Hours (Table) 06/03/18 06/03/18 06/03/18 Range/Units 05:56 11:13 16:57 Sodium (137-145) mmol/L Potassium (3.5-5.1) mmol/L Chloride (98-107) mmol/L Carbon Dioxide (22-30) mmol/L BUN (9-20) mg/dL Creatinine (0.66-1.25) mg/dL Glucose (74-99) mg/dL POC Glucose (mg/dL) 144 H 133 H (75-99) mg/dL Magnesium (1.6-2.3) mg/dL Vitamin B12 >4000.0 H (211-911) pg/mL 03/06/04/18 06/04/18 Range/Units 21:06 06:02 07:23 Sodium 133 L (137-145) mmol/L Potassium 5.9 H (3.5-5.1) mmol/L Chloride 97 L (98-107) mmol/L Carbon Dioxide 20 L (22-30) mmol/L BUN 99 H (9-20) mg/dL Creatinine 3.31 H (0.66-1.25) mg/dL Glucose 103 H (74-99) mg/dL POC Glucose (mg/dL) 131 H 116 H (75-99) mg/dL Magnesium 2.4 H (1.6-2.3) mg/dL Vitamin B12 (211-911) pg/mL Assessment and Plan Plan: Assessment: 1. Acute kidney injury secondary to ATN secondary to hemodynamic instability and cardiorenal syndrome. Renal function worse today - creatinine 3.31. Baseline creatinine near 1. No evidence of hydronephrosis noted on renal ultrasound. 2. A. fib with RVR maintained on Lopressor and Xarelto. Heart rate controlled. 3. Volume overload. Improved. 4. Systolic CHF with ejection fraction of 20-25% with moderate to severe mitral regurgitation. 5. Hyperkalemia secondary to acute kidney injury and metabolic acidosis. 6. Hyponatremia secondary to acute kidney injury. Plan: Start lasix 60 mg IV twice daily. 10 units of IV insulin with an amp of D50 now. Add oral sodium bicarbonate. Repeat potassium level this afternoon. Avoid nephrotoxins. Continue to monitor renal function and urine output. Repeat electrolytes in the morning. Monitor respiratory status closely. [facility]
[2018-06-04] MEDS: SODIUM CHLORIDE 0.9% 1,000 ML IV SCH (11:26)
[2018-06-04] MEDS: DOBUTamine DRIP 500 MG in DEXTROSE/WATER 1 250ML.BAG IV SCH (11:29)
[2018-06-04] MEDS: SODIUM BICARBONATE TAB 650 MG TAB PO SCH ×2 (11:30→20:59)
[2018-06-04 11:32] LABS: Glucose,Whole Blood 253 mg/dL (75-99)
[2018-06-04] MEDS: IPRATROPIUM-ALBUTEROL 3 ML NEB INHALATION PRN (12:47)
[2018-06-04] MEDS: CHOLECALCIFEROL 1,000 UNIT TAB PO SCH (12:49)
[2018-06-04] MEDS: MULTIVITAMINS, THERA 1 EACH TAB PO SCH (12:49)
[2018-06-04 12:55] LABS: Glucose,Whole Blood 207 mg/dL (75-99)
--- NOTE | 2018-06-04 13:55 | PN ---
PROGRESS NOTE Mr. Yates has ischemic cardiomyopathy, atrial fibrillation, ejection fraction of less than 25%. This morning, his renal function is poor. His urine output has decreased. He feels cold, clammy. Clinical evaluation suggests that he is in a low cardiac output state. Blood pressure is about 100 systolic, pulse rate is about 80-90. JVD is evident, S1-S2 heard normally, irregular rhythm. Short systolic murmur noted. Lungs reveal diminished air entry. Patient appears to be in a low output failure type picture. I am recommending that we will move him to the ICU, place him on a low-dose dobutamine drip at 2.5 mcg, gradually increased to 5 mcg and hold off on IV Lasix for now and patient will be re-evaluated by Nephrology later on today for diuretic management. Prognosis remains poor. I discussed this with the patient but there was no other family members available. I will transfer him to the ICU today. MMMAMIE / RAMIRON: [id number] /
[2018-06-04 13:58] VITALS: BMI 27.8
[2018-06-04 17:13] LABS: Glucose,Whole Blood 152 mg/dL (75-99)
--- NOTE | 2018-06-04 17:43 | P.PN ---
Subjective Progress Note Date: 06/04/18 (Transferred from telemetry to the intensive care by cardiology and nephrology) Principal diagnosis: Diagnosis: #1 congestive heart failure acute on the top of chronic with the unde rlying ischemic cardiomyopathy with ejection fraction 20%. 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 #4 wheezes and asthma was seen by pulmonary and started on steroid and inhalation therapy. #5 on 06/04/2018 hyperkalemia hypo-bacteremia and creatinine rising to 3.31 and magnesium 2.4, patient transferred to the ICU by Dr. Askew as well as Dr. PREMA Mukherjee for dobutamine infusion with the prognosis is poor. #6 metabolic acidosis secondary to renal and the glomerular filtration rate has been dropped to 19 with the underlying kidney function compromise stage IV. #6 atrial fibrillation with RVR on admission currently controlled, right ventricle severely enlarged and left atrial severely dilated, moderate to severe mitral regurg, mild tricuspid regurg, and pulmonary hypertension, right ventricular systolic pressure measured at 42.12 mmHg and pulmonary regurgitation and moderate concentric left ventricular hypertrophy with ejection fraction 20-25 and right ventricular severely enlarged. #7 history of splenectomy #8 basilar infiltrate especially on behind the cardiac silhouette. #8 pulmonary edema. ##9 history of abdominal aortic stented for aneurysm and [facility]. #10 four- vessel bypass graft. #11 hyperlipidemia #12 previous myocardial infarction #13 previous CVA. This is a progress note date of service 06/04/[address] Massey. Patient seen and evaluated today discussed with his and the patient in the ICU. Bed #252 bed 1 His vital sign indicating that temperature 98.2, pulse 92, respiratory rate 18, blood pressure 108/84 and oxygen saturation was earlier 96 on 6 L of nasal cannula. Patient has edema of the lower extremities 2+, he is lethargic, is short of breath with rales and rhonchi his breath sound is audible and labored Positive JVD no lymphadenopathy. Heart atrial fib controlled response Long decreased air entry bilateral with the rales and rhonchi's. Abdomen: Multiple scar and protuberant no tenderness on palpation. Extremities 2+ edema. Pulses with perfusion Neuro neurologically lethargic. Assessment: Acute renal failure with cardiac renal syndrome and progression of elevation of creatinine with the poor prognosis. Ischemic cardiomyopathy with ejection fraction of 20% associated with valvular disease. Coronary artery disease atherosclerotic heart disease and four-vessel bypass graft which only one of them family is open. Status post splenectomy with immunocompromise. Congestive heart failure functional class IV acute systolic and diastolic on the top of chronic. Bilateral infiltrate R and the left lung field however could be associated with the pulmonary edema. Plan: #1 continuing the dobutamine drip for improving the outflow and the cardiac output was ordered by cardiology and nephrology. #2 continue monitoring patient diabetes secondary to steroid therapy with covering with insulin to scale. #3 continue followed by cardiology, pulmonary, nephrology,. #4 prognosis is poor Objective - Vital Signs Vital signs: Vital Signs Temp 98.2 F 06/04/18 13:00 Pulse 89 06/04/18 17:00 Resp 19 06/04/18 17:00 BP 113/67 06/04/18 17:00 Pulse Ox 90 L 06/04/18 17:00 Intake & Output 06/03/18 06/04/18 06/04/18 18:59 06:59 18:59 Intake Total 580 10 176.8 Output Total 700 75 Balance -120 10 101.8 Weight 90.6 kg 90.6 kg Intake: IV 10 0.9 10 Intake, IV Titration 56.8 Amount DOBUTamine DRIP 500 mg In 6.8 Dextrose/Water 1 250ml. bag @ 2.5 MCG/KG/MIN 6. 795 mls/hr IV .Q24H [facility] Rx#:[id number] Sodium Chloride 0.9% 1, 50 000 ml @ 50 mls/hr IV . Q20H [facility] Rx#:[id number] Oral 580 120 Output: Urine 700 75 Other: Voiding Method Urinal Indwelling Catheter # Voids 1 0 # Bowel Movements 0 - Labs CBC & Chem 7: 06/03/18 05:56 06/04/18 07:23 Labs: Abnormal Lab Results - Last 24 Hours (Table) 06/03/18 06/04/18 06/04/18 Range/Units 21:06 06:02 07:23 Sodium 133 L (137-145) mmol/L Potassium 5.9 H (3.5-5.1) mmol/L Chloride 97 L (98-107) mmol/L Carbon Dioxide 20 L (22-30) mmol/L BUN 99 H (9-20) mg/dL Creatinine 3.31 H (0.66-1.25) mg/dL Glucose 103 H (74-99) mg/dL POC Glucose (mg/dL) 131 H 116 H (75-99) mg/dL Magnesium 2.4 H (1.6-2.3) mg/dL 06/04/18 06/04/18 06/04/18 Range/Units 11:29 12:52 17:10 Sodium (137-145) mmol/L Potassium (3.5-5.1) mmol/L Chloride (98-107) mmol/L Carbon Dioxide (22-30) mmol/L BUN (9-20) mg/dL Creatinine (0.66-1.25) mg/dL Glucose (74-99) mg/dL POC Glucose (mg/dL) 253 H 207 H 152 H (75-99) mg/dL Magnesium (1.6-2.3) mg/dL
[2018-06-04] MEDS: RIVAROXABAN 15 MG TAB PO SCH (18:42)
[2018-06-04 20:48] LABS: Glucose,Whole Blood 154 mg/dL (75-99)
[2018-06-04] MEDS: ATORVASTATIN 40 MG TAB PO SCH (20:59)
[2018-06-04] MEDS ORDERED: FUROSEMIDE 10 MG/ML 10 ML VIAL IV SCH (21:00)
[2018-06-05 04:46] LABS: Anisocytosis Slight; HCT 37.6 % (39.0-53.0); HGB 12.4 gm/dL (13.0-17.5); Hypochromasia Slight; MCH 33.7 pg (25.0-35.0); MCHC 32.9 g/dL (31.0-37.0); Macrocytosis Moderate; Mean Platelet Volume 10.9; Platelet Count 101 k/uL (150-450); RBC 3.67 m/uL (4.30-5.90)
[2018-06-05 04:53] LABS: Calcium 7.7 mg/dL (8.4-10.2); Magnesium 2.4 mg/dL (1.6-2.3); Phosphorus 5.7 mg/dL (2.5-4.5); Potassium 5.1 mmol/L (3.5-5.1)
[2018-06-05 04:57] LABS: MCV 102.5 fL (80.0-100.0)
[2018-06-05 07:06] LABS: Glucose,Whole Blood 156 mg/dL (75-99)
[2018-06-05] MEDS: IPRATROPIUM-ALBUTEROL 3 ML NEB INHALATION SCH ×4 (07:13→20:43)
[2018-06-05] MEDS: SODIUM CHLORIDE 0.9% 1,000 ML IV SCH ×2 (07:13→10:50)
[2018-06-05] MEDS: INSULIN ASPART (NovoLOG) 100 UNIT/ML VIAL SQ SCH ×4 (07:14→21:23)
[2018-06-05] MEDS: PANTOPRAZOLE 40 MG TABLET PO SCH (07:14)
[2018-06-05 07:21] LABS: Lymphocytes # (M) 0.64 k/uL (1.0-4.8); Monocytes # (M) 0.28 k/uL (0-1.0); Neutrophils # (M) 6.25 k/uL (1.3-7.7); Neutrophils % (M) 88 %; Nucleated Red Blood Cells 73 /100 WBC (0-0); Total Cells Counted 200; WBC 7.1 k/uL (3.8-10.6)
[2018-06-05 07:22] LABS: Poikilocytosis (M) Present; Target Cells Present
--- NOTE | 2018-06-05 09:10 | XR ---
EXAMINATION TYPE: XR chest 1V DATE OF EXAM: 06/05/2018 COMPARISON: 06/04/2018 HISTORY: Shortness of breath TECHNIQUE: Single frontal view of the chest is obtained. FINDINGS: Hyperinflation. Chronic rib deformities noted. Cardiac device and postsurgical changes wit h cardiomegaly. Bilateral small effusion and consolidation with diffuse interstitial pattern. Underly ing COPD suspected. Arthropathy of the shoulders. Surgical clips in the abdomen noted. IMPRESSION: 1. Stable x-ray demonstrating bilateral infiltrate and pleural effusion correlate for pulmonary edema . Underlying pneumonia not excluded.
--- NOTE | 2018-06-05 09:56 | PN ---
PROGRESS NOTE Mr. Yates is a 62-year-old male with a known history of severe cardiomyopathy, status post ICD implantation, who presented with symptoms of progressive dyspnea. He has chronic persistent atrial fibrillation. He was noted to be in congestive heart failure with worsening renal function. His ejection fraction was 20% to 25%. He has prior history of coronary artery disease, status post coronary artery bypass grafting with occluded saphenous vein graft and patent SANTORO by prior cardiac catheterization. He is, according to him, feeling better today. His breathing is better. He denies any chest pain. He denies any dizziness. He denies any nausea. He has been started on IV dobutamine because of the worsening renal function. His medications otherwise include insulin, isosorbide mononitrate 30 mg daily, metoprolol tartrate 50 mg daily, Xarelto 15 mg daily. PHYSICAL EXAMINATION: Blood pressure 126/100 with the heart rate in the 90s. LUNGS: With scattered rhonchi bilaterally. HEART: Irregular, irregular. S1, S2. No S3 with systolic murmur. No diastolic murmur. No rub. ABDOMEN: Soft, nontender. Positive bowel sounds. No organomegaly. EXTREMITIES: With 1+ edema. LAB DATA: Lab data revealed a BUN and creatinine of 119 and 3.32 with a potassium 5.1, hemoglobin of 12.4. His renal functions are worse today than they were yesterday. IMPRESSION: 1. Congestive heart failure with severe systolic dysfunction and ICD implantation. 2. Worsening renal failure with cardiorenal syndrome. 3. Chronic persistent atrial fibrillation. 4. Status post ICD implantation. RECOMMENDATION: From the cardiac standpoint, the prognosis is quite guarded. We will continue on the IV dobutamine. The Xarelto will be stopped because of the worsening renal function. I will switch him to Eliquis. I will adjust the dosing of his beta nadira. We will await the input of the nephrology service. We will need to receive IV Lasix. Unfortunately, the prognosis is quite poor. MMODL / IJN: [id number] / JEFFREY
[2018-06-05] MEDS ORDERED: METOLAZONE 5 MG TAB PO SCH (10:15)
--- NOTE | 2018-06-05 10:39 | P.PN ---
Subjective Patient is seen in follow-up for acute kidney injury. He was transferred to the intensive care unit yesterday due to worsening dyspnea. He is currently maintained on dobutamine drip. Patient has history of systolic CHF with ejection fraction of 20-25% status post AICD placement. He is also noted to have moderate to severe mitral regurgitation. Patient complains of wheezing. He remains quite dyspneic and edematous. Creatinine 3.32. BUN is up to 119. Urine output has been about 50-60 mL an hour. Chest x-ray suggestive of pulmonary edema. Vital signs are stable. General: The patient appeared well nourished and normally developed. HEENT: Head exam is unremarkable. Neck is without jugular venous distension. LUNGS: Breath sounds decreased. Scattered rhonchi. HEART: Rate and Rhythm are regular. First and second heart sounds normal. No murmurs, rubs or gallops. ABDOMEN: Abdominal exam reveals normal bowel sounds. Non-tender and non- distended. No evidence of peritonitis. EXTREMITITES: 1+ edema. Objective - Vital Signs Vital signs: Vital Signs Temp 97.6 F 06/05/18 04:00 Pulse 99 06/05/18 07:28 Resp 16 06/05/18 07:00 BP 126/102 06/05/18 07:00 Pulse Ox 91 L 06/05/18 06:00 Intake & Output 06/04/18 06/05/18 06/05/18 18:59 06:59 18:59 Intake Total 176.8 865 189.411 Output Total 75 750 60 Balance 101.8 115 129.411 Weight 90.6 kg 93 kg Intake: Intake, IV Titration 56.8 575 189.411 Amount DOBUTamine DRIP 500 mg In 6.8 139.411 Dextrose/Water 1 250ml. bag @ 2.5 MCG/KG/MIN 6. 795 mls/hr IV .Q24H [facility] Rx#:[id number] Sodium Chloride 0.9% 1, 50 525 50 000 ml @ 50 mls/hr IV . Q20H [facility] Rx#:[id number] cefTRIAXone 1 gm In 50 Sodium Chloride 0.9% 50 ml @ 100 mls/hr IVPB Q12HR [facility] Rx#:[id number] Oral 120 290 Output: Urine 75 750 60 Other: Voiding Method Indwelling Catheter Indwelling Catheter # Voids 0 # Bowel Movements 0 0 - Labs CBC & Chem 7: 06/05/18 04:10 06/05/18 04:10 Labs: Abnormal Lab Results - Last 24 Hours (Table) 06/04/18 06/04/18 06/04/18 Range/Units 11:29 12:52 17:10 RBC (4.30-5.90) m/uL Hgb (13.0-17.5) gm/dL Hct (39.0-53.0) % MCV (80.0-100.0) fL RDW (11.5-15.5) % Plt Count (150-450) k/uL Lymphocytes # (Manual) (1.0-4.8) k/uL Nucleated RBCs (0-0) /100 WBC Sodium (137-145) mmol/L Potassium (3.5-5.1) mmol/L BUN (9-20) mg/dL Creatinine (0.66-1.25) mg/dL Glucose (74-99) mg/dL POC Glucose (mg/dL) 253 H 207 H 152 H (75-99) mg/dL Calcium (8.4-10.2) mg/dL Phosphorus (2.5-4.5) mg/dL Magnesium (1.6-2.3) mg/dL 06/04/18 06/04/18 06/05/18 Range/Units 18:30 20:33 04:10 RBC (4.30-5.90) m/uL Hgb (13.0-17.5) gm/dL Hct (39.0-53.0) % MCV (80.0-100.0) fL RDW (11.5-15.5) % Plt Count (150-450) k/uL Lymphocytes # (Manual) (1.0-4.8) k/uL Nucleated RBCs (0-0) /100 WBC Sodium 133 L (137-145) mmol/L Potassium 5.2 H (3.5-5.1) mmol/L BUN 119 H* (9-20) mg/dL Creatinine 3.32 H (0.66-1.25) mg/dL Glucose 134 H (74-99) mg/dL POC Glucose (mg/dL) 154 H (75-99) mg/dL Calcium 7.7 L (8.4-10.2) mg/dL Phosphorus 5.7 H (2.5-4.5) mg/dL Magnesium 2.4 H (1.6-2.3) mg/dL 06/05/18 06/05/18 Range/Units 04:10 07:03 RBC 3.67 L (4.30-5.90) m/uL Hgb 12.4 L (13.0-17.5) gm/dL Hct 37.6 L (39.0-53.0) % MCV 102.5 H D (80.0-100.0) fL RDW 16.0 H (11.5-15.5) % Plt Count 101 L (150-450) k/uL Lymphocytes # (Manual) 0.64 L (1.0-4.8) k/uL Nucleated RBCs 73 H (0-0) /100 WBC Sodium (137-145) mmol/L Potassium (3.5-5.1) mmol/L BUN (9-20) mg/dL Creatinine (0.66-1.25) mg/dL Glucose (74-99) mg/dL POC Glucose (mg/dL) 156 H (75-99) mg/dL Calcium (8.4-10.2) mg/dL Phosphorus (2.5-4.5) mg/dL Magnesium (1.6-2.3) mg/dL Assessment and Plan Plan: Assessment: 1. Acute kidney injury secondary to ATN secondary to hemodynamic instability and cardiorenal syndrome. Renal function worse today - creatinine 3.32. Baseline creatinine near 1. No evidence of hydronephrosis noted on renal ultrasound. 2. A. fib with RVR maintained on Lopressor and Xarelto. Heart rate controlled. 3. Volume overload. 4. Systolic CHF with ejection fraction of 20-25% with moderate to severe mitral regurgitation. 5. Hyperkalemia secondary to acute kidney injury and metabolic acidosis. Improved. 6. Hyponatremia secondary to acute kidney injury. Currently hypervolemic. 7. Hyperphosphatemia secondary to acute kidney injury. Monitor. Plan: Start Lasix drip at 10 mL an hour along with metolazone. Maintain dobutamine drip. Continue to monitor renal function and urine output. Avoid nephrotoxins. Case discussed with cardiology.
[2018-06-05] MEDS: FUROSEMIDE 100 MG in SODIUM CHLORIDE 0.9% 90 ML IV SCH ×2 (10:49→21:00)
[2018-06-05] MEDS: SERTRALINE 50 MG TAB PO SCH (10:50)
[2018-06-05] MEDS: SODIUM BICARBONATE TAB 650 MG TAB PO SCH ×2 (10:50→21:22)
[2018-06-05] MEDS: METOPROLOL TARTRATE 25 MG TAB PO SCH ×3 (10:50→22:00)
[2018-06-05] MEDS: APIXABAN 2.5 MG TABLET PO SCH ×2 (10:50→21:27)
[2018-06-05] MEDS: ISOSORBIDE MONONITRATE ER 30 MG TAB.ER.24H PO SCH (10:50)
[2018-06-05] MEDS: MULTIVITAMINS, THERA 1 EACH TAB PO SCH (10:53)
[2018-06-05] MEDS: CHOLECALCIFEROL 1,000 UNIT TAB PO SCH (10:55)
[2018-06-05 12:12] LABS: Glucose,Whole Blood 215 mg/dL (75-99)
[2018-06-05] MEDS ORDERED: AMIODARONE 360 MG in DEXTROSE 5% IN WATER 200 ML IV ONE ×2 (13:28)
[2018-06-05] MEDS ORDERED: DEXTROSE 5% IN WATER 100 ML with AMIODARONE 150 MG IV ONE (13:28)
[2018-06-05] MEDS ORDERED: GLYCERIN ADULT SUPPOSITORY 1 EACH RECTAL STA (14:43)
--- NOTE | 2018-06-05 15:11 | P.PN ---
Subjective Progress Note Date: 06/05/18 Principal diagnosis: Diagnosis: #1 congestive heart failure acute on the top of chronic with the underlying ischemic cardiomyopathy with ejection fraction 20%. 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 #4 wheezes and asthma was seen by pulmonary and started on steroid and inhalation therapy. #5 on 06/04/2018 hyperkalemia hypo-bacteremia and creatinine rising to 3.31 and magnesium 2.4, patient transferred to the ICU by Dr. Askew as well as Dr. PREMA Mukherjee for dobutamine infusion with the prognosis is poor. #6 metabolic acidosis secondary to renal and the glomerular filtration rate has been dropped to 19 with the underlying kidney function compromise stage IV. #6 atrial fibrillation with RVR on admission currently controlled, right ventricle severely enlarged and left atrial severely dilated, moderate to severe mitral regurg, mild tricuspid regurg, and pulmonary hypertension, right ventricular systolic pressure measured at 42.12 mmHg and pulmonary regurgitation and moderate concentric left ventricular hypertrophy with ejection fraction 20-25 and right ventricular severely enlarged. #7 history of splenectomy #8 basilar infiltrate especially on behind the cardiac silhouette. #8 pulmonary edema. ##9 history of abdominal aortic stented for aneurysm and [facility]. #10 four- vessel bypass graft. #11 hyperlipidemia #12 previous myocardial infarction #13 previous CVA. Dictation progress note date of service 06/05/[address] Massey. Patient seen in ICU today and 252. 1 discussed that with the patient and his . Patient seen by Dr. walls cardiology with his impression prognosis is guarded, as well. Because of the renal function persistent impairment with the cardiorenal syndrome. Patient continued currently on Lasix IV as well as IV utamine. Dr. Squires nephrology acute kidney injury secondary to ATN with the hemodynamic instability, cardiorenal syndrome with the progressive elevation of the creatinine to 3.82 and also the BUN with the associated lethargy. Patient has atrial fibrillation currently controlled , with the Lopressor and amiodarone drip. Ejection fraction of 20%, volume overload, chest x-ray indicating pulmo nary edema, hyperkalemia improved today hyperphosphatemia, hyponatremia. With the recommendation of the pathology continue Lasix at 10 mg per hour, and continue metolazone and dobutamine. Hemoglobin is 12.4 hematocrit 37.6 and platelet count 101 blood sugar 156 patient on a steroid sodium 133 and BUN 119 creatinine 3.32 calcium was low 7.7 and phosphorus 5.7 and magnesium 2.4. On exam: Patient is conscious alert oriented his at bedside is still short of breath his temperature today 97.6 and pulse rate 9196 with the irregular irregularities respiratory rate 18-21 with the blood pressure has been slightly improved to 111-97 pulse ox 92. On the exam: HEENT he is facial swelling able to open his eyes, neck was supple no JVD, chest decreased air entry on the basis, heart irregular irregularity with the poor cardiac output he had a pacemaker A IDC. Abdomen positive bowel sounds and no BM for the last few days will start him on glycerin suppositories and Senokot S tablet twice a day. Extremities positive edema 1-2+ bilateral and he has had thrombotic stocking . Assessment: Patient still critical. Continued monitored by pulmonary, cardiology, nephrology, with the current diagnosis and deterioration of kidney function and presence of cardiorenal syndrome and pulmonary edema. Plan: Prognosis is guarded to poor however THIS patient healthy trying to help the patient at this time. Discussed with his . Objective - Vital Signs Vital signs: Vital Signs Temp 97.6 F 06/05/18 12:00 Pulse 91 06/05/18 13:00 Resp 21 06/05/18 13:00 BP 111/97 06/05/18 13:00 Pulse Ox 92 L 06/05/18 13:00 Intake & Output 06/04/18 06/05/18 06/05/18 18:59 06:59 18:59 Intake Total 176.8 865 449.411 Output Total 75 750 810 Balance 101.8 115 -360.589 Weight 90.6 kg 93 kg Intake: IV 260 Furosemide 100 mg In 30 Sodium Chloride 0.9% 90 ml @ 10 MG/HR 10 mls/hr IV .Q10H [facility] Rx#: [id number] Sodium Chloride 0.9% 1, 180 000 ml @ 20 mls/hr IV . Q24H [facility] Rx#:[id number] cefTRIAXone 1 gm In 50 Sodium Chloride 0.9% 50 ml @ 100 mls/hr IVPB Q12HR [facility] Rx#:[id number] Intake, IV Titration 56.8 575 189.411 Amount DOBUTamine DRIP 500 mg In 6.8 139.411 Dextrose/Water 1 250ml. bag @ 2.5 MCG/KG/MIN 6. 795 mls/hr IV .Q24H [facility] Rx#:[id number] Sodium Chloride 0.9% 1, 50 525 50 000 ml @ 50 mls/hr IV . Q20H [facility] Rx#:[id number] cefTRIAXone 1 gm In 50 Sodium Chloride 0.9% 50 ml @ 100 mls/hr IVPB Q12HR [facility] Rx#:[id number] Oral 120 290 Output: Urine 75 750 810 Other: Voiding Method Indwelling Catheter Indwelling Catheter # Voids 0 # Bowel Movements 0 0 - Labs CBC & Chem 7: 06/05/18 04:10 06/05/18 04:10 Labs: Abnormal Lab Results - Last 24 Hours (Table) 06/04/18 06/04/18 06/04/18 Range/Units 17:10 18:30 20:33 RBC (4.30-5.90) m/uL Hgb (13.0-17.5) gm/dL Hct (39.0-53.0) % MCV (80.0-100.0) fL RDW (11.5-15.5) % Plt Count (150-450) k/uL Lymphocytes # (Manual) (1.0-4.8) k/uL Nucleated RBCs (0-0) /100 WBC Sodium (137-145) mmol/L Potassium 5.2 H (3.5-5.1) mmol/L BUN (9-20) mg/dL Creatinine (0.66-1.25) mg/dL Glucose (74-99) mg/dL POC Glucose (mg/dL) 152 H 154 H (75-99) mg/dL Calcium (8.4-10.2) mg/dL Phosphorus (2.5-4.5) mg/dL Magnesium (1.6-2.3) mg/dL 06/05/18 06/05/18 06/05/18 Range/Units 04:10 04:10 07:03 RBC 3.67 L (4.30-5.90) m/uL Hgb 12.4 L (13.0-17.5) gm/dL Hct 37.6 L (39.0-53.0) % MCV 102.5 H D (80.0-100.0) fL RDW 16.0 H (11.5-15.5) % Plt Count 101 L (150-450) k/uL Lymphocytes # (Manual) 0.64 L (1.0-4.8) k/uL Nucleated RBCs 73 H (0-0) /100 WBC Sodium 133 L (137-145) mmol/L Potassium (3.5-5.1) mmol/L BUN 119 H* (9-20) mg/dL Creatinine 3.32 H (0.66-1.25) mg/dL Glucose 134 H (74-99) mg/dL POC Glucose (mg/dL) 156 H (75-99) mg/dL Calcium 7.7 L (8.4-10.2) mg/dL Phosphorus 5.7 H (2.5-4.5) mg/dL Magnesium 2.4 H (1.6-2.3) mg/dL 06/05/18 Range/Units 12:09 RBC (4.30-5.90) m/uL Hgb (13.0-17.5) gm/dL Hct (39.0-53.0) % MCV (80.0-100.0) fL RDW (11.5-15.5) % Plt Count (150-450) k/uL Lymphocytes # (Manual) (1.0-4.8) k/uL Nucleated RBCs (0-0) /100 WBC Sodium (137-145) mmol/L Potassium (3.5-5.1) mmol/L BUN (9-20) mg/dL Creatinine (0.66-1.25) mg/dL Glucose (74-99) mg/dL POC Glucose (mg/dL) 215 H (75-99) mg/dL Calcium (8.4-10.2) mg/dL Phosphorus (2.5-4.5) mg/dL Magnesium (1.6-2.3) mg/dL
--- NOTE | 2018-06-05 15:30 | P.PN ---
Subjective Progress Note Date: 06/05/18 Principal diagnosis: Acute exacerbation of chronic systolic congestive heart failure. 62-year-old male patient with known history of CHF with systolic dysfunction and ejection fraction of less than 25% and the patient is post AICD placement. The patient also has chronic atrial fibrillation and COPD. He has suffered a CVA back in 2014. He has hypertension and hyperlipidemia as comorbid conditions. Has undergone coronary artery bypass surgery back in 1998. The patient is coming in today because of worsening shortness of breath. He was having increased difficulties during his trip in [place]. He was Hospital as briefly there and he ultimately made it back to [place]. He came in with increased dyspnea and he was in atrial fibrillation with rapid ventricular response and a heart rate was in the 1:30 to 140 range. He was started on Cardizem drip and controlled his rate and currently is off the Cardizem. He is on long-term anticoagulants. CAT scan of the chest was done and the patient was found to have cardiomegaly and bilateral pleural effusion and compressive atelectasis in the lung bases. There may be also a component of tracheal bronchomalacia as dynamic obstruction of the tracheal wall was seen on the CAT scan of the chest in addition to some nonspecific mediastinal lymphadenopathy. The patient evidently maintained on Incruse or COPD on outpatient basis. I was informed that the patient was also bronchospastic and wheezy. I started this patient IV Solu Medrol this morning. He is improved significantly. His bronchospasm wheezing is improved and subsided. He still has crackles in lung bases along with some trace edema lower extremities bilaterally. He is currently on Lasix 40 mg IV push every 12 hours. Urine output is minimal at this point. Function is stable and the patient has no significant leukocytosis. Creatinine is at 1.02. Note that the patient's last echo cardiac exam showed severely impaired LV function with an ejection fraction of 20-25%. The most recent cardiac catheterization from June 2016 showed a patent SANTORO to LAD and SVG to OM and diagonal branch and RCA were all occluded. The patient has no palpitations. The patient's family chest pain. Troponins are mildly elevated and cardiology is on the case. The patient is seen today 06/01/2018 in follow-up on the selective care unit. He is currently awake and alert in no acute distress. He is sitting up in a chair at the bedside. His main complaint today is that of fatigue and weakness. No worsening shortness of breath, cough or congestion. No chills or night sweats. Currently maintaining O2 saturations in the 90s on 2 L/m per nasal cannula. He's been afebrile. Hemodynamically stable. Sodium 135. Creatinine 2.11. Troponin 0.071. ProBNP 23,400. He is continued on IV Solu-Medrol, bronchodilators, antibiotics in the form of ceftriaxone. Anticoagulated with Xarelto. The patient had been stable from the pulmonary standpoint but was having worsening congestive heart failure and transferred into the intensive yesterday. We are seeing him again today in follow-up 06/05/2018. X-ray shows worsening pulmonary edema. He is currently requiring 6 L/m per nasal cannula to maintain O2 saturations in the low 90s. He's been afebrile. Hemodynamically stable. He remains in atrial fibrillation. He's been initiated on a dobutamine drip at 5 mcg/kg/m. He is also on a Lasix drip at 10 mg per hour. He is also being started on amiodarone drip per cardiology. He is anticoagulated with Eliquis. He's on empiric antibiotics in the form of ceftriaxone. He is currently in a negative balance. White count 7.1. Hemoglobin 12.4. Platelet count 101,000. BUN 119. Creatinine 3.32. Nephrology is on the case as well. Objective - Vital Signs Vital signs: Vital Signs Temp 97.6 F 06/05/18 12:00 Pulse 91 06/05/18 13:00 Resp 21 06/05/18 13:00 BP 111/97 06/05/18 13:00 Pulse Ox 92 L 06/05/18 13:00 Intake & Output 06/04/18 06/05/18 06/05/18 18:59 06:59 18:59 Intake Total 176.8 865 449.411 Output Total 75 750 810 Balance 101.8 115 -360.589 Weight 90.6 kg 93 kg Intake: IV 260 Furosemide 100 mg In 30 Sodium Chloride 0.9% 90 ml @ 10 MG/HR 10 mls/hr IV .Q10H B[facility] Rx#: [id number] Sodium Chloride 0.9% 1, 180 000 ml @ 20 mls/hr IV . Q24H BREE Rx#:[id number] cefTRIAXone 1 gm In 50 Sodium Chloride 0.9% 50 ml @ 100 mls/hr IVPB Q12HR BREE Rx#:[id number] Intake, IV Titration 56.8 575 189.411 Amount DOBUTamine DRIP 500 mg In 6.8 139.411 Dextrose/Water 1 250ml. bag @ 2.5 MCG/KG/MIN 6. 795 mls/hr IV .Q24H BREE Rx#:[id number] Sodium Chloride 0.9% 1, 50 525 50 000 ml @ 50 mls/hr IV . Q20H BREE Rx#:[id number] cefTRIAXone 1 gm In 50 Sodium Chloride 0.9% 50 ml @ 100 mls/hr IVPB Q12HR BREE Rx#:[id number] Oral 120 290 Output: Urine 75 750 810 Other: Voiding Method Indwelling Catheter Indwelling Catheter # Voids 0 # Bowel Movements 0 0 - Exam GENERAL: This is a 62-year-old male in mild respiratory distress. On 6 L nasal cannula HEENT: Head is atraumatic, normocephalic. Pupils are equal, round. Sclerae anicteric. Conjunctivae are clear. Mucous membranes of the mouth are moist. Neck is supple. There is no jugular venous distention. No carotid bruit is heard. LUNGS: Bibasilar raises with expiratory wheezes, no rhonchi. No chest wall tenderness is noted on palpation or with deep breathing. HEART: Irregular rate and rhythm without murmurs, rubs or gallops. S1 and S2 heard. The patient has a thoracotomy scar over the anterior chest area. ABDOMEN: Soft, nontender, mildly distended. Bowel sounds are heard. No organomegaly noted. EXTREMITIES: No evidence of peripheral edema and no calf tenderness noted. VASCULAR: Radial and dorsalis pedis pulses palpated, no evidence of clubbing. NEUROLOGIC: Patient is awake, alert and oriented x3. Examination of the skin revealed no evidence of significant rashes, suspicious appearing nevi or other concerning lesions. Psychiatric evaluation is within normal limits. - Labs CBC & Chem 7: 06/05/18 04:10 06/05/18 04:10 Labs: Abnormal Lab Results - Last 24 Hours (Table) 06/04/18 06/04/18 06/04/18 Range/Units 17:10 18:30 20:33 RBC (4.30-5.90) m/uL Hgb (13.0-17.5) gm/dL Hct (39.0-53.0) % MCV (80.0-100.0) fL RDW (11.5-15.5) % Plt Count (150-450) k/uL Lymphocytes # (Manual) (1.0-4.8) k/uL Nucleated RBCs (0-0) /100 WBC Sodium (137-145) mmol/L Potassium 5.2 H (3.5-5.1) mmol/L BUN (9-20) mg/dL Creatinine (0.66-1.25) mg/dL Glucose (74-99) mg/dL POC Glucose (mg/dL) 152 H 154 H (75-99) mg/dL Calcium (8.4-10.2) mg/dL Phosphorus (2.5-4.5) mg/dL Magnesium (1.6-2.3) mg/dL 06/05/18 06/05/18 06/05/18 Range/Units 04:10 04:10 07:03 RBC 3.67 L (4.30-5.90) m/uL Hgb 12.4 L (13.0-17.5) gm/dL Hct 37.6 L (39.0-53.0) % MCV 102.5 H D (80.0-100.0) fL RDW 16.0 H (11.5-15.5) % Plt Count 101 L (150-450) k/uL Lymphocytes # (Manual) 0.64 L (1.0-4.8) k/uL Nucleated RBCs 73 H (0-0) /100 WBC Sodium 133 L (137-145) mmol/L Potassium (3.5-5.1) mmol/L BUN 119 H* (9-20) mg/dL Creatinine 3.32 H (0.66-1.25) mg/dL Glucose 134 H (74-99) mg/dL POC Glucose (mg/dL) 156 H (75-99) mg/dL Calcium 7.7 L (8.4-10.2) mg/dL Phosphorus 5.7 H (2.5-4.5) mg/dL Magnesium 2.4 H (1.6-2.3) mg/dL 06/05/18 Range/Units 12:09 RBC (4.30-5.90) m/uL Hgb (13.0-17.5) gm/dL Hct (39.0-53.0) % MCV (80.0-100.0) fL RDW (11.5-15.5) % Plt Count (150-450) k/uL Lymphocytes # (Manual) (1.0-4.8) k/uL Nucleated RBCs (0-0) /100 WBC Sodium (137-145) mmol/L Potassium (3.5-5.1) mmol/L BUN (9-20) mg/dL Creatinine (0.66-1.25) mg/dL Glucose (74-99) mg/dL POC Glucose (mg/dL) 215 H (75-99) mg/dL Calcium (8.4-10.2) mg/dL Phosphorus (2.5-4.5) mg/dL Magnesium (1.6-2.3) mg/dL Assessment and Plan Assessment: Assessment 1 acute exacerbation of chronic systolic congestive heart failure. The patient has advanced cardiomyopathy with an ejection fraction of 20-25%. He presents with worsening shortness of breath, exertional dyspnea and orthopnea in addition to bilateral pleural effusions all in agreement with CHF. Answered into the intensive care unit on 06/04/2018. He is currently on a Lasix drip, dobutamine drip, amiodarone drip. 2 coronary artery disease with. His coronary artery bypass surgery the most recent cardiac catheterization from 2017 showed patent SANTORO to LAD and the rest of the saphenous vein grafts were all occluded 3 mild troponin leak, without typical EKG pattern to suggest acute AR 4 chronic atrial fibrillation with rapid ventricular response in time of admission, heart rate under better control 5 COPD exacerbation maintained on Incruse on outpatient basis currently on IV Solu Medrol in addition to nebulized treatment [id number] 6 hypertension 8 hyperlipidemia 9 history of CVA back in 2014 10 remote history of pneumothorax traumatic 11 remote history of hepatitis C, treated 12 degenerative arthritis 15 diverticulosis Plan: The patient was seen and evaluated by Dr. Chappell. His chest x-ray and labs were reviewed. Continue to titrate the FiO2 will maintaining O2 saturations in the 90s. He has been initiated on a dobutamine drip at 5 mcg/kg/m. Lasix drip at 1 0 mg per hour. To be started on amiodarone drip per cardiology. We'll continue to monitor him closely here in the intensive care unit. We'll continue to follow and make further recommendations based on his clinical status. I, the cosigning physician, performed a history & physical examination of the patient. Lungs sounds with crackles in the posterior bases. Maintaining good O2 saturations in the 90s on 6 L/m per nasal cannula. I discussed the assessment and plan of care with my nurse practitioner, Mery Marti. I attest to the above note as dictated by her.
[2018-06-05] MEDS: DOBUTamine DRIP 500 MG in DEXTROSE/WATER 1 250ML.BAG IV SCH (15:42)
[2018-06-05 17:13] LABS: Glucose,Whole Blood 217 mg/dL (75-99)
[2018-06-05] MEDS: AMIODARONE 300 MG in DEXTROSE 5% IN WATER 250 ML IV SCH ×2 (19:30)
[2018-06-05 20:38] LABS: Glucose,Whole Blood 193 mg/dL (75-99)
[2018-06-05] MEDS: hydrALAZINE HCL 25 MG TAB PO SCH (21:22)
[2018-06-05] MEDS: SENNOSIDES-DOCUSATE SODIUM 1 EACH TAB PO SCH (21:22)
[2018-06-05] MEDS: ATORVASTATIN 40 MG TAB PO SCH (21:28)
[2018-06-06] MEDS: AMIODARONE 300 MG in DEXTROSE 5% IN WATER 250 ML IV SCH ×4 (00:07→13:20)
[2018-06-06 05:03] LABS: Anisocytosis Slight; HGB 13.3 gm/dL (13.0-17.5); Hypochromasia Slight; MCH 32.4 pg (25.0-35.0); MCHC 31.7 g/dL (31.0-37.0); MCV 102.3 fL (80.0-100.0); Macrocytosis Moderate; Platelet Count 124 k/uL (150-450); Poikilocytosis Slight; RBC 4.11 m/uL (4.30-5.90); RDW 16.3 % (11.5-15.5)
[2018-06-06 05:16] LABS: Calcium 7.8 mg/dL (8.4-10.2); Magnesium 2.3 mg/dL (1.6-2.3); Potassium 4.2 mmol/L (3.5-5.1)
[2018-06-06 05:36] LABS: Band Neutrophils % 15 %; Lymphocytes # (M) 0.36 k/uL (1.0-4.8); Monocytes # (M) 0.14 k/uL (0-1.0); Neutrophils % (M) 79 %; Nucleated Red Blood Cells 83 /100 WBC (0-0); Total Cells Counted 200; WBC 7.2 k/uL (3.8-10.6)
[2018-06-06 05:37] LABS: Crenated RBC Present; Polychromasia Present; Target Cells Present
[2018-06-06 06:01] LABS: Glucose,Whole Blood 61 mg/dL (75-99)
[2018-06-06 06:11] LABS: Glucose,Whole Blood 63 mg/dL (75-99)
--- NOTE | 2018-06-06 06:14 | XR ---
EXAMINATION TYPE: XR chest 1V DATE OF EXAM: 06/06/2018 HISTORY: Shortness of breath. REFERENCE: Previous study dated 06/05/2018. FINDINGS: There has been a midline sternotomy. There is a bipolar pacemaker in place in the left. The heart is enlarged. There is bibasilar airspace disease, worse on the left than the right. There i s a small left effusion and a smaller right effusion. Airspace disease is partially improved. IMPRESSION: IMPROVING CHANGES OF PULMONARY EDEMA.
[2018-06-06 07:04] LABS: Glucose,Whole Blood 66 mg/dL (75-99)
[2018-06-06 07:59] LABS: Glucose,Whole Blood 107 mg/dL (75-99)
[2018-06-06] MEDS: HYDROmorphone 0.5 MG/0.5 ML SYRINGE IVP PRN ×2 (08:05→20:30)
--- NOTE | 2018-06-06 08:18 | XR ---
EXAMINATION TYPE: XR KUB portable , 2 VIEWS DATE OF EXAM ORDERED: 06/06/2018 HISTORY: abd pain. COMPARISON: Previous study dated 04/16/2012. FINDINGS: There is an aortoiliac stent graft in place. There has been previous left upper quadrant s urgery. There is been a hip pinning on the left. There is blunting of the left CP angle. I could not exclude a small left effusion. Within the abdomen, the abdominal gas pattern is normal. There is no evidence of obstruction or free air. No unusual calcifications are seen. IMPRESSION: 1. NO ACUTE INTRA-ABDOMINAL ABNORMALITY. 2. POSTSURGICAL CHANGE.
[2018-06-06] MEDS: IPRATROPIUM-ALBUTEROL 3 ML NEB INHALATION SCH ×4 (08:40→20:47)
--- NOTE | 2018-06-06 09:07 | CT ---
EXAMINATION TYPE: CT abdomen pelvis wo con DATE OF EXAM: 06/06/2018 COMPARISON: Previous study dated 09/19/2015. . HISTORY: Upper abdominal pain CT DLP: 617.2 mGycm Automated exposure control for dose reduction was used. FINDINGS: There are bilateral effusions, greater on the right than the left. There is associated biba silar airspace disease either representing atelectasis or pneumonia. The heart is enlarged. There is coronary artery and other vascular calcifications identified. No pericardial fluid is seen. A bipolar pacemaker is in place. Within the abdomen, there is a small amount of ascites. The liver is normal in size. The spleen is be en removed. The gallbladder is unremarkable. Both adrenal glands are normal. There is a 1.4 cm low attenuating lesion in the upper pole of the left kidney. The kidneys are otherw ise unremarkable without evidence of nephrolithiasis or hydronephrosis. Limited views of the pancreas are unremarkable. There is an aortoiliac stent graft in place. Patency cannot be assessed. There is no significant retroperitoneal, iliac or inguinal adenopathy. There is a Sanchez catheter within the bladder. The colon is largely fluid-filled as it is much of the small bowel. The appendix is not visualized wi th certainty. There is no evidence of bowel obstruction. No free air is seen. There is a small ventral hernia with a mouth measuring 4 cm they have small bowel peaking into it. There has been a dynamic hip pinning of the left hip. There is degenerative disc disease and facet ar thropathy within the lumbar spine. IMPRESSION: 1. SMALL EFFUSIONS AND A SMALL AMOUNT OF ASCITES. 2. BIBASILAR AIRSPACE DISEASE. 3. CARDIOMEGALY. 4. STATUS POST CHOLECYSTECTOMY. 5. PROBABLE CYST IN THE UPPER POLE OF THE LEFT KIDNEY. THIS COULD BE FURTHER ASSESSED WITH ULTRASOUND . 6. FLUID-FILLED LOOPS OF LARGE AND SMALL BOWEL THROUGHOUT THE ABDOMEN. 7. MILD DEGENERATIVE CHANGE WITHIN THE SPINE. 8. SMALL VENTRAL HERNIA CONTAINING UNOBSTRUCTED LOOPS OF SMALL BOWEL.
[2018-06-06] MEDS ORDERED: SODIUM CHLORIDE 0.9% 1,000 ML IV ONE ×2 (10:16→10:54)
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
[2018-06-06] MEDS ORDERED: SODIUM BICARB 8.4% 50 ML SYR (1 MEQ/ML) IV ONE ×2 (10:53)
[2018-06-06] MEDS ORDERED: CISATRACURIUM 2 MG/ML 5 ML VIAL IV ONE (10:54)
[2018-06-06] MEDS: FUROSEMIDE 100 MG in SODIUM CHLORIDE 0.9% 90 ML IV SCH (10:58)
[2018-06-06] MEDS: hydrALAZINE HCL 25 MG TAB PO SCH (10:59)
[2018-06-06] MEDS: INSULIN ASPART (NovoLOG) 100 UNIT/ML VIAL SQ SCH ×4 (10:59→21:24)
[2018-06-06] MEDS: PANTOPRAZOLE 40 MG TABLET PO SCH (11:02)
[2018-06-06] MEDS ORDERED: SODIUM CHLORIDE 0.9% 250 ML IV ONE (11:15)
[2018-06-06 11:26] LABS: Calcium 7.1 mg/dL (8.4-10.2)
[2018-06-06 11:40] LABS: Potassium 4.6 mmol/L (3.5-5.1)
[2018-06-06] MEDS: NOREPINEPHRINE 4 MG in SODIUM CHLORIDE 0.9% 250 ML IV SCH ×2 (12:00→16:23)
--- NOTE | 2018-06-06 12:02 | P.PN ---
Subjective Progress Note Date: 06/06/18 Principal diagnosis: Acute on chronic systolic congestive heart failure secondary to cardiomyopathy and LV dysfunction. The patient had been stable from the pulmonary standpoint but was having worsening congestive heart failure and transferred into the intensive yesterday. We are seeing him again today in follow-up 06/05/2018. X-ray shows worsening pulmonary edema. He is currently requiring 6 L/m per nasal cannula to maintain O2 saturations in the low 90s. He's been afebrile. Hemodynamically stable. He remains in atrial fibrillation. He's been initiated on a dobutamine drip at 5 mcg/kg/m. He is also on a Lasix drip at 10 mg per hour. He is also being started on amiodarone drip per cardiology. He is anticoagulated with Eliquis. He's on empiric antibiotics in the form of ceftriaxone. He is currently in a negative balance. White count 7.1. Hemoglobin 12.4. Platelet count 101,000. BUN 119. Creatinine 3.32. Nephrology is on the case as well. Patient was reevaluated today on 06/06/2018, patient is noted to be moaning and groaning, complaining of significant abdominal discomfort. Blood pressure is marginal, patient is clinically dry, hence his Lasix was placed on hold. His chest x-ray showed definite improvement in his pulmonary edema. Patient remains in atrial fibrillation. Remains on dobutamine drip at 5 mcg/kg/m. Lasix is presently on hold, remains on amiodarone drip. He is also on anticoagulations therapy. However considering his profound abdominal pain, I recommended surgical evaluation. He was seen by Dr. Lenard neri on consultation, and he felt that the patient may have ileus. Nasogastric tube was placed, slight improvement was noted. His abdominal pain is less, and he remains a bit tender on palpation his renal functioning has become worse, BUN is up to 133 creatinine is 3.37. His lactic acid today is 2.7 Objective - Vital Signs Vital signs: Vital Signs Temp 97.5 F L 06/06/18 08:00 Pulse 87 06/06/18 10:00 Resp 15 06/06/18 10:00 BP 74/53 06/06/18 10:00 Pulse Ox 90 L 06/06/18 10:00 Intake & Output 06/05/18 06/06/18 06/06/18 18:59 06:59 18:59 Intake Total 903.954 930.733 580 Output Total 1909 1854 330 Balance -1006.046 -924.267 250 Weight 91.9 kg Intake: IV 609.9 479.9 80 Amiodarone 360 mg In 99.9 99.9 Dextrose 5% in Water 200 ml @ 1 MG/MIN 33.333 mls/ hr IV .Q6H [facility] Rx#: [id number] Dextrose 5% in Water 100 100 ml @ 618 mls/hr IV .Q10M [facility] with Amiodarone 150 mg Rx#:[id number] Furosemide 100 mg In 80 90 Sodium Chloride 0.9% 90 ml @ 10 MG/HR 10 mls/hr IV .Q10H [facility] Rx#: [id number] Sodium Chloride 0.9% 1, 280 240 80 000 ml @ 20 mls/hr IV . Q24H [facility] Rx#:[id number] cefTRIAXone 1 gm In 50 50 Sodium Chloride 0.9% 50 ml @ 100 mls/hr IVPB Q12HR [facility] Rx#:[id number] Intake, IV Titration 294.054 330.833 500 Amount Amiodarone 300 mg In 230.833 Dextrose 5% in Water 250 ml @ 0.5 MG/MIN 25 mls/hr IV .Q10H [facility] Rx#: [id number] DOBUTamine DRIP 500 mg In 244.054 Dextrose/Water 1 250ml. bag @ 2.5 MCG/KG/MIN 6. 795 mls/hr IV .Q24H [facility] Rx#:[id number] Furosemide 100 mg In 100 Sodium Chloride 0.9% 90 ml @ 10 MG/HR 10 mls/hr IV .Q10H [facility] Rx#: [id number] Sodium Chloride 0.9% 1, 50 000 ml @ 50 mls/hr IV . Q20H [facility] Rx#:[id number] Sodium Chloride 0.9% 250 500 ml @ 999 mls/hr IV .Q16M [facility] Rx#:[id number] Oral 120 Output: Urine 1909 1854 330 Other: Voiding Method Indwelling Catheter Indwelling Catheter Indwelling Catheter # Voids 0 # Bowel Movements 0 - Exam GENERAL: This is a 62-year-old male noted to be moaning and groaning secondary to abdominal discomfort and pain. HEENT: Head is atraumatic, normocephalic. Pupils are equal, round. Sclerae anicteric. Conjunctivae are clear. Mucous membranes of the mouth are moist. Neck is supple. There is no jugular venous distention. No carotid bruit is heard. LUNGS: Bibasilar raises with expiratory wheezes, no rhonchi. No chest wall tenderness is noted on palpation or with deep breathing. HEART: Irregular rate and rhythm without murmurs, rubs or gallops. S1 and S2 heard. The patient has a thoracotomy scar over the anterior chest area. ABDOMEN: Slightly distended, tender to palpation, diminished bowel sounds, no rebound, no guarding. EXTREMITIES: No evidence of peripheral edema and no calf tenderness noted. VASCULAR: Radial and dorsalis pedis pulses palpated, no evidence of clubbing. NEUROLOGIC: Patient is awake, alert and oriented x3. Examination of the skin revealed no evidence of significant rashes, suspicious appearing nevi or other concerning lesions. Psychiatric evaluation is within normal limits. - Labs CBC & Chem 7: 06/06/18 04:30 06/06/18 10:54 Labs: Abnormal Lab Results - Last 24 Hours (Table) 06/05/18 06/05/18 06/05/18 Range/Units 12:09 17:09 20:35 RBC (4.30-5.90) m/uL MCV (80.0-100.0) fL RDW (11.5-15.5) % Plt Count (150-450) k/uL Lymphocytes # (Manual) (1.0-4.8) k/uL Nucleated RBCs (0-0) /100 WBC Sodium (137-145) mmol/L Chloride (98-107) mmol/L Carbon Dioxide (22-30) mmol/L BUN (9-20) mg/dL Creatinine (0.66-1.25) mg/dL Glucose (74-99) mg/dL POC Glucose (mg/dL) 215 H 217 H 193 H (75-99) mg/dL Plasma Lactic Acid Juliocesar (0.7-2.0) mmol/L Calcium (8.4-10.2) mg/dL Phosphorus (2.5-4.5) mg/dL 06/06/18 06/06/18 06/06/18 Range/Units 04:30 04:30 05:59 RBC 4.11 L (4.30-5.90) m/uL MCV 102.3 H (80.0-100.0) fL RDW 16.3 H (11.5-15.5) % Plt Count 124 L (150-450) k/uL Lymphocytes # (Manual) 0.36 L (1.0-4.8) k/uL Nucleated RBCs 83 H (0-0) /100 WBC Sodium 132 L (137-145) mmol/L Chloride 95 L (98-107) mmol/L Carbon Dioxide (22-30) mmol/L BUN (9-20) mg/dL Creatinine 3.56 H (0.66-1.25) mg/dL Glucose 49 L* (74-99) mg/dL POC Glucose (mg/dL) 61 L (75-99) mg/dL Plasma Lactic Acid Juliocesar (0.7-2.0) mmol/L Calcium 7.8 L (8.4-10.2) mg/dL Phosphorus 5.0 H (2.5-4.5) mg/dL 06/06/18 06/06/18 06/06/18 Range/Units 06:08 06:39 07:56 RBC (4.30-5.90) m/uL MCV (80.0-100.0) fL RDW (11.5-15.5) % Plt Count (150-450) k/uL Lymphocytes # (Manual) (1.0-4.8) k/uL Nucleated RBCs (0-0) /100 WBC Sodium (137-145) mmol/L Chloride (98-107) mmol/L Carbon Dioxide (22-30) mmol/L BUN (9-20) mg/dL Creatinine (0.66-1.25) mg/dL Glucose (74-99) mg/dL POC Glucose (mg/dL) 63 L 66 L 107 H (75-99) mg/dL Plasma Lactic Acid Juliocesar (0.7-2.0) mmol/L Calcium (8.4-10.2) mg/dL Phosphorus (2.5-4.5) mg/dL 06/06/18 06/06/18 Range/Units 10:54 10:54 RBC (4.30-5.90) m/uL MCV (80.0-100.0) fL RDW (11.5-15.5) % Plt Count (150-450) k/uL Lymphocytes # (Manual) (1.0-4.8) k/uL Nucleated RBCs (0-0) /100 WBC Sodium 131 L (137-145) mmol/L Chloride 97 L (98-107) mmol/L Carbon Dioxide 21 L (22-30) mmol/L BUN 133 H* (9-20) mg/dL Creatinine 3.37 H (0.66-1.25) mg/dL Glucose (74-99) mg/dL POC Glucose (mg/dL) (75-99) mg/dL Plasma Lactic Acid Juliocesar 2.7 H* (0.7-2.0) mmol/L Calcium 7.1 L (8.4-10.2) mg/dL Phosphorus (2.5-4.5) mg/dL Assessment and Plan Assessment: 1 acute exacerbation of chronic systolic congestive heart failure. The patient has advanced cardiomyopathy with an ejection fraction of 20-25%. He presents with worsening shortness of breath, exertional dyspnea and orthopnea in addition to bilateral pleural effusions all in agreement with CHF. Answered into the intensive care unit on 06/04/2018. He is currently on a Lasix drip, dobutamine drip, amiodarone drip. 2 coronary artery disease with. His coronary artery bypass surgery the most recent cardiac catheterization from 2017 showed patent SANTORO to LAD and the rest of the saphenous vein grafts were all occluded 3 mild troponin leak, without typical EKG pattern to suggest acute OH 4 chronic atrial fibrillation with rapid ventricular response in time of admission, heart rate under better control 5 COPD exacerbation maintained on Incruse on outpatient basis currently on IV Solu Medrol in addition to nebulized treatment [id number] 6 hypertension 8 hyperlipidemia 9 history of CVA back in 2014 10 remote history of pneumothorax traumatic 11 remote history of hepatitis C, treated 12 degenerative arthritis 15 diverticulosis 16 acute abdominal pain most likely secondary to ileus. Surgery was consulted, nasogastric tube was recommended, patient is an extremely high surgical risk, hence we'll try to manage conservatively. Recommendation: Continue to monitor the patient in the ICU, continue present cardiac meds including amiodarone, continue Dobutrex, placed Lasix on hold because of his dehydration picture, and worsening renal status, prognosis is extremely poor and guarded. We'll continue to follow and monitor in the ICU. Discussed his condition with surgery and cardiology on the case. Time with Patient: Less than 30
[2018-06-06 12:09] LABS: Glucose,Whole Blood 90 mg/dL (75-99)
[2018-06-06] MEDS: PIPERACILLIN-TAZOBACTAM 3.375 GM in SODIUM CHLORIDE 0.9% 100 ML IVPB SCH ×2 (12:28→21:01)
--- NOTE | 2018-06-06 12:58 | P.PN ---
Subjective Progress Note Date: 06/06/18 Seen and examined for the follow-up of acute kidney injury. Very tender belly. Diarrhea. Low blood pressure Lasix has been stopped overnight and currently on levofed. 3700 ML of urine output in the last 24 hours. Objective - Vital Signs Vital signs: Vital Signs Temp 97.5 F L 06/06/18 08:00 Pulse 91 06/06/18 12:22 Resp 15 06/06/18 10:00 BP 74/53 06/06/18 10:00 Pulse Ox 90 L 06/06/18 10:00 Intake & Output 06/05/18 06/06/18 06/06/18 18:59 06:59 18:59 Intake Total 903.954 930.733 580 Output Total 1910 1855 330 Balance -1006.046 -924.267 250 Weight 91.9 kg Intake: IV 609.9 479.9 80 Amiodarone 360 mg In 99.9 99.9 Dextrose 5% in Water 200 ml @ 1 MG/MIN 33.333 mls/ hr IV .Q6H [facility] Rx#: [id number] Dextrose 5% in Water 100 100 ml @ 618 mls/hr IV .Q10M [facility] with Amiodarone 150 mg Rx#:[id number] Furosemide 100 mg In 80 90 Sodium Chloride 0.9% 90 ml @ 10 MG/HR 10 mls/hr IV .Q10H [facility] Rx#: [id number] Sodium Chloride 0.9% 1, 280 240 80 000 ml @ 20 mls/hr IV . Q24H [facility] Rx#:[id number] cefTRIAXone 1 gm In 50 50 Sodium Chloride 0.9% 50 ml @ 100 mls/hr IVPB Q12HR [facility] Rx#:[id number] Intake, IV Titration 294.054 330.833 500 Amount Amiodarone 300 mg In 230.833 Dextrose 5% in Water 250 ml @ 0.5 MG/MIN 25 mls/hr IV .Q10H [facility] Rx#: [id number] DOBUTamine DRIP 500 mg In 244.054 Dextrose/Water 1 250ml. bag @ 2.5 MCG/KG/MIN 6. 795 mls/hr IV .Q24H [facility] Rx#:[id number] Furosemide 100 mg In 100 Sodium Chloride 0.9% 90 ml @ 10 MG/HR 10 mls/hr IV .Q10H [facility] Rx#: [id number] Sodium Chloride 0.9% 1, 50 000 ml @ 50 mls/hr IV . Q20H [facility] Rx#:[id number] Sodium Chloride 0.9% 250 500 ml @ 999 mls/hr IV .Q16M [facility] Rx#:[id number] Oral 120 Output: Urine 1910 1855 330 Other: Voiding Method Indwelling Catheter Indwelling Catheter Indwelling Catheter # Voids 0 # Bowel Movements 0 - Exam Lying in bed, no acute distress S1-S2 heard Decreased breath sounds Tender abdomen with decreased bowel sounds No edema - Labs CBC & Chem 7: 06/06/18 04:30 06/06/18 10:54 Labs: Abnormal Lab Results - Last 24 Hours (Table) 06/05/18 06/05/18 06/06/18 Range/Units 17:09 20:35 04:30 RBC 4.11 L (4.30-5.90) m/uL MCV 102.3 H (80.0-100.0) fL RDW 16.3 H (11.5-15.5) % Plt Count 124 L (150-450) k/uL Lymphocytes # (Manual) 0.36 L (1.0-4.8) k/uL Nucleated RBCs 83 H (0-0) /100 WBC Sodium (137-145) mmol/L Chloride (98-107) mmol/L Carbon Dioxide (22-30) mmol/L BUN (9-20) mg/dL Creatinine (0.66-1.25) mg/dL Glucose (74-99) mg/dL POC Glucose (mg/dL) 217 H 193 H (75-99) mg/dL Plasma Lactic Acid Juliocesar (0.7-2.0) mmol/L Calcium (8.4-10.2) mg/dL Phosphorus (2.5-4.5) mg/dL 06/06/18 06/06/18 06/06/18 Range/Units 04:30 05:59 06:08 RBC (4.30-5.90) m/uL MCV (80.0-100.0) fL RDW (11.5-15.5) % Plt Count (150-450) k/uL Lymphocytes # (Manual) (1.0-4.8) k/uL Nucleated RBCs (0-0) /100 WBC Sodium 132 L (137-145) mmol/L Chloride 95 L (98-107) mmol/L Carbon Dioxide (22-30) mmol/L BUN (9-20) mg/dL Creatinine 3.56 H (0.66-1.25) mg/dL Glucose 49 L* (74-99) mg/dL POC Glucose (mg/dL) 61 L 63 L (75-99) mg/dL Plasma Lactic Acid Juliocesar (0.7-2.0) mmol/L Calcium 7.8 L (8.4-10.2) mg/dL Phosphorus 5.0 H (2.5-4.5) mg/dL 06/06/18 06/06/18 06/06/18 Range/Units 06:39 07:56 10:54 RBC (4.30-5.90) m/uL MCV (80.0-100.0) fL RDW (11.5-15.5) % Plt Count (150-450) k/uL Lymphocytes # (Manual) (1.0-4.8) k/uL Nucleated RBCs (0-0) /100 WBC Sodium 131 L (137-145) mmol/L Chloride 97 L (98-107) mmol/L Carbon Dioxide 21 L (22-30) mmol/L BUN 133 H* (9-20) mg/dL Creatinine 3.37 H (0.66-1.25) mg/dL Glucose (74-99) mg/dL POC Glucose (mg/dL) 66 L 107 H (75-99) mg/dL Plasma Lactic Acid Juliocesar (0.7-2.0) mmol/L Calcium 7.1 L (8.4-10.2) mg/dL Phosphorus (2.5-4.5) mg/dL 06/06/18 Range/Units 10:54 RBC (4.30-5.90) m/uL MCV (80.0-100.0) fL RDW (11.5-15.5) % Plt Count (150-450) k/uL Lymphocytes # (Manual) (1.0-4.8) k/uL Nucleated RBCs (0-0) /100 WBC Sodium (137-145) mmol/L Chloride (98-107) mmol/L Carbon Dioxide (22-30) mmol/L BUN (9-20) mg/dL Creatinine (0.66-1.25) mg/dL Glucose (74-99) mg/dL POC Glucose (mg/dL) (75-99) mg/dL Plasma Lactic Acid Juliocesar 2.7 H* (0.7-2.0) mmol/L Calcium (8.4-10.2) mg/dL Phosphorus (2.5-4.5) mg/dL Assessment and Plan Assessment: #1 nonoliguric acute kidney injury secondary to hemodynamic ATN. Baseline creatinine 1.0 MG per DL. #2 hypotension suspect sepsis #3 anion gap metabolic acidosis #4 lactic acidosis #5 diarrhea with abdominal pain to rule out C. diff colitis #6 CHF with systolic dysfunction EF of 20%. Plan: #1 continue vasopressors to maintain systolic blood pressure more than 120. #2 stop Lasix and metolazone. Also stopped Imuran with hypotension. #3 sent C. diff #4 monitor strict ins and outs. Avoid nephrotoxic agents and hypotensive episodes. #5 repeat labs in the morning. #6 no acute indication for dialysis at this point.
[2018-06-06] MEDS: DOBUTamine DRIP 500 MG in DEXTROSE/WATER 1 250ML.BAG IV SCH (13:20)
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
[2018-06-06] MEDS: APIXABAN 2.5 MG TABLET PO SCH ×2 (14:31→21:05)
[2018-06-06] MEDS: METOPROLOL TARTRATE 25 MG TAB PO SCH ×3 (14:31→21:03)
[2018-06-06] MEDS: SENNOSIDES-DOCUSATE SODIUM 1 EACH TAB PO SCH ×2 (14:32→21:02)
[2018-06-06] MEDS: SERTRALINE 50 MG TAB PO SCH (14:32)
[2018-06-06] MEDS: SODIUM BICARBONATE TAB 650 MG TAB PO SCH ×2 (14:32→21:00)
[2018-06-06] MEDS: MULTIVITAMINS, THERA 1 EACH TAB PO SCH (14:33)
[2018-06-06] MEDS: CHOLECALCIFEROL 1,000 UNIT TAB PO SCH (14:33)
[2018-06-06] MEDS ORDERED: DEXTROSE 50%-WATER 50 ML SYRINGE IVP STA (18:51)
[2018-06-06 19:13] LABS: Glucose,Whole Blood 57 mg/dL (75-99)
[2018-06-06 19:25] LABS: Glucose,Whole Blood 160 mg/dL (75-99)
[2018-06-06] MEDS: SODIUM CHLORIDE 0.9% 1,000 ML IV SCH (20:48)
[2018-06-06] MEDS: ATORVASTATIN 40 MG TAB PO SCH (21:01)
[2018-06-06] MEDS: CHERRY FLAVOR 60 ML BOTTLE PO SCH (21:23)
[2018-06-06] MEDS: VANCOMYCIN ORAL SOLUTION 250 MG/5 ML BOTTLE PO SCH (21:35)
[2018-06-06 23:51] LABS: Glucose,Whole Blood 75 mg/dL (75-99)
[2018-06-07] MEDS: VANCOMYCIN ORAL SOLUTION 250 MG/5 ML BOTTLE PO SCH ×2 (00:11→07:38)
[2018-06-07] MEDS: HYDROmorphone 0.5 MG/0.5 ML SYRINGE IVP PRN (01:55)
[2018-06-07 04:03] LABS: Glucose,Whole Blood 75 mg/dL (75-99)
[2018-06-07 05:00] LABS: Anisocytosis Slight; HCT 46.2 % (39.0-53.0); HGB 14.5 gm/dL (13.0-17.5); Hypochromasia Slight; MCH 32.6 pg (25.0-35.0); MCHC 31.3 g/dL (31.0-37.0); MCV 104.2 fL (80.0-100.0); Macrocytosis Moderate; Poikilocytosis Slight; RBC 4.43 m/uL (4.30-5.90); RDW 17.6 % (11.5-15.5)
[2018-06-07] MEDS ORDERED: DEXTROSE 5% IN WATER 100 ML with AMIODARONE 150 MG IV ONE (05:02)
[2018-06-07 05:04] VITALS: TEMP 97.6
[2018-06-07] MEDS: CHERRY FLAVOR 60 ML BOTTLE PO SCH (05:07)
[2018-06-07] MEDS ORDERED: AMIODARONE 360 MG in DEXTROSE 5% IN WATER 200 ML IV ONE ×2 (05:15)
[2018-06-07 05:46] LABS: Crenated RBC Present; Platelet Count 91 k/uL (150-450); Poikilocytosis (M) Present; Polychromasia Present
[2018-06-07 05:50] LABS: Band Neutrophils % 8 %; Lymphocytes # (M) 0.38 k/uL (1.0-4.8); Monocytes # (M) 0.19 k/uL (0-1.0); Neutrophils % (M) 89 %; Nucleated Red Blood Cells 32 /100 WBC (0-0); Total Cells Counted 200; WBC 18.9 k/uL (3.8-10.6)
[2018-06-07 05:52] LABS: Potassium 4.4 mmol/L (3.5-5.1); Total Bilirubin 5.5 mg/dL (0.2-1.3); Total Protein 4.4 g/dL (6.3-8.2)
[2018-06-07 06:09] LABS: Calcium 6.3 mg/dL (8.4-10.2)
[2018-06-07 07:17] LABS: Glucose,Whole Blood 79 mg/dL (75-99)
[2018-06-07] MEDS: IPRATROPIUM-ALBUTEROL 3 ML NEB INHALATION SCH ×3 (07:24→15:31)
[2018-06-07] MEDS: INSULIN ASPART (NovoLOG) 100 UNIT/ML VIAL SQ SCH (07:38)
[2018-06-07 07:39] VITALS: PULSE 113
[2018-06-07] MEDS: PANTOPRAZOLE 40 MG TABLET PO SCH (07:40)
[2018-06-07] MEDS ORDERED: AMIODARONE 50 MG/ML 3 ML VIAL IV ONE (07:55)
[2018-06-07] MEDS ORDERED: DEXTROSE 50%-WATER 50 ML SYRINGE IVP ONE (07:55)
[2018-06-07] MEDS ORDERED: CALCIUM CHLORIDE 100 MG/ML 10 ML SYRINGE ONE (07:55)
[2018-06-07] MEDS ORDERED: EPINEPHrine 10 ML SYRINGE (0.1 MG/ML) ONE (07:55)
[2018-06-07] MEDS ORDERED: MAGNESIUM SULFATE SYG 4.06 MEQ/ML SYRINGE ONE (07:55)
[2018-06-07] MEDS ORDERED: SODIUM BICARB 8.4% 50 ML SYR (1 MEQ/ML) ONE (07:55)
--- NOTE | 2018-06-07 08:29 | ED ---
Medical Decision Making - Medical Decision Making Called by nursing staff for CODE BLUE. Patient reportedly had code started at 757. Patient was in pulseless V. tach for the majority of the code. Patient did have occasional V. fib. Dr. Chappell and Dr. Paiz were contacted who felt patient had low probability of survival. Dr. Paiz did consider hospice yesterday. At 817 patient still has no pulse. No spontaneous respirations. No response to pain. No heart sounds. Time of is 8:17 AM. - Lab Data Result diagrams: 06/07/18 04:55 06/07/18 04:55 Lab Results 05/30/18 05/30/18 05/30/18 Range/Units 20:19 20:19 20:19 WBC 7.4 (3.8-10.6) k/uL RBC 3.51 L (4.30-5.90) m/uL Hgb 11.6 L (13.0-17.5) gm/dL Hct 37.6 L (39.0-53.0) % MCV 107.0 H (80.0-100.0) fL MCH 33.0 (25.0-35.0) pg MCHC 30.9 L (31.0-37.0) g/dL RDW 16.0 H (11.5-15.5) % Plt Count 221 (150-450) k/uL Neutrophils % 46 % Lymphocytes % 38 % Monocytes % 8 % Eosinophils % 3 % Basophils % 1 % Neutrophils # 3.4 (1.3-7.7) k/uL Lymphocytes # 2.9 (1.0-4.8) k/uL Monocytes # 0.6 (0-1.0) k/uL Eosinophils # 0.2 (0-0.7) k/uL Basophils # 0.1 (0-0.2) k/uL Hypochromasia Marked Poikilocytosis Slight Anisocytosis Slight Macrocytosis Marked PT 14.5 H (9.0-12.0) sec INR 1.4 H (<1.2) APTT 27.7 (22.0-30.0) sec Sodium 141 (137-145) mmol/L Potassium 4.0 (3.5-5.1) mmol/L Chloride 103 (98-107) mmol/L Carbon Dioxide 30 (22-30) mmol/L Anion Gap 8 mmol/L BUN 18 (9-20) mg/dL Creatinine 1.02 (0.66-1.25) mg/dL Est GFR (CKD-EPI)AfAm 90 (>60 ml/min/1.73 sqM) Est GFR (CKD-EPI)NonAf 78 (>60 ml/min/1.73 sqM) Glucose 112 H (74-99) mg/dL Calcium 9.4 (8.4-10.2) mg/dL Magnesium 1.8 (1.6-2.3) mg/dL Total Bilirubin 1.6 H (0.2-1.3) mg/dL AST 45 (17-59) U/L ALT 166 H (21-72) U/L Alkaline Phosphatase 105 (38-126) U/L Troponin I (0.000-0.034) ng/mL Total Protein 6.4 (6.3-8.2) g/dL Albumin 3.6 (3.5-5.0) g/dL 05/30/18 Range/Units 20:19 WBC (3.8-10.6) k/uL RBC (4.30-5.90) m/uL Hgb (13.0-17.5) gm/dL Hct (39.0-53.0) % MCV (80.0-100.0) fL MCH (25.0-35.0) pg MCHC (31.0-37.0) g/dL RDW (11.5-15.5) % Plt Count (150-450) k/uL Neutrophils % % Lymphocytes % % Monocytes % % Eosinophils % % Basophils % % Neutrophils # (1.3-7.7) k/uL Lymphocytes # (1.0-4.8) k/uL Monocytes # (0-1.0) k/uL Eosinophils # (0-0.7) k/uL Basophils # (0-0.2) k/uL Hypochromasia Poikilocytosis Anisocytosis Macrocytosis PT (9.0-12.0) sec INR (<1.2) APTT (22.0-30.0) sec Sodium (137-145) mmol/L Potassium (3.5-5.1) mmol/L Chloride (98-107) mmol/L Carbon Dioxide (22-30) mmol/L Anion Gap mmol/L BUN (9-20) mg/dL Creatinine (0.66-1.25) mg/dL Est GFR (CKD-EPI)AfAm (>60 ml/min/1.73 sqM) Est GFR (CKD-EPI)NonAf (>60 ml/min/1.73 sqM) Glucose (74-99) mg/dL Calcium (8.4-10.2) mg/dL Magnesium (1.6-2.3) mg/dL Total Bilirubin (0.2-1.3) mg/dL AST (17-59) U/L ALT (21-72) U/L Alkaline Phosphatase (38-126) U/L Troponin I 0.063 H* (0.000-0.034) ng/mL Total Protein (6.3-8.2) g/dL Albumin (3.5-5.0) g/dL Disposition Clinical Impression: Atrial fibrillation, Unstable angina pectoris, CHF exacerbation, Elevated troponin, COPD with exacerbation, Cardiac arrest Disposition: ADMITTED IP TO THIS HOSP Condition: Fair Is patient prescribed a controlled substance at d/c from ED?: No Preliminary Cause of : Cardiac arrest
[2018-06-07 08:32] LABS: Glucose,Whole Blood 66 mg/dL (75-99)
[2018-06-07 09:40] VITALS: BP 89/70; RESP 27
--- NOTE | 2018-06-07 10:39 | P.PN ---
Progress Note - Text When I came to the ICU. The patient was being coded. He remained in ventricular fibrillation despite resuscitative efforts for 20 minutes. The code was discontinued and an aspirin a call to the patient's . Later when she came in I did speak to her about his overall condition. She realizes that his overall condition was very poor and his quality of life even poor and was accepting of what transpired this morning
[2018-06-07] MEDS ORDERED: AMIODARONE 300 MG in DEXTROSE 5% IN WATER 250 ML IV SCH ×2 (11:15)
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
[2018-06-07 13:59] LABS: Magnesium 2.2 mg/dL (1.6-2.3); Phosphorus 7.2 mg/dL (2.5-4.5)
== END 2018-06-07 15:00 | disposition expired | DRG 291 ==
LOC: EC 19:33 → 3SCARD 22:17 → 2SICU 06-04 12:13
PROVIDERS: ADMIT Internal Medicine; ATTEND Internal Medicine
PROC: 0D9670Z Drainage of Stomach with Drainage Device, Via Natural or Artificial Opening (ICD-10-PCS; principal; 2018-06-06)
PROC: 0BH17EZ Insertion of Endotracheal Airway into Trachea, Via Natural or Artificial Opening (ICD-10-PCS; 2018-06-07)
PROC: 5A12012 Performance of Cardiac Output, Single, Manual (ICD-10-PCS; 2018-06-07)
DX: I13.0 Hypertensive heart and chronic kidney disease with heart failure and stage 1 through stage 4 chronic kidney disease, or unspecified chronic kidney disease (principal); I50.43 Acute on chronic combined systolic (congestive) and diastolic (congestive) heart failure; N17.0 Acute kidney failure with tubular necrosis; J96.00 Acute respiratory failure, unspecified whether with hypoxia or hypercapnia; J69.0 Pneumonitis due to inhalation of food and vomit; I47.2 Ventricular tachycardia; A04.72 Enterocolitis due to Clostridium difficile, not specified as recurrent; E87.2 Acidosis; N18.4 Chronic kidney disease, stage 4 (severe); I48.1 Persistent atrial fibrillation; J44.1 Chronic obstructive pulmonary disease with (acute) exacerbation; I25.810 Atherosclerosis of coronary artery bypass graft(s) without angina pectoris; K56.7 Ileus, unspecified; E87.1 Hypo-osmolality and hyponatremia; I95.9 Hypotension, unspecified; I27.21 Secondary pulmonary arterial hypertension; I08.1 Rheumatic disorders of both mitral and tricuspid valves; N28.1 Cyst of kidney, acquired; B02.9 Zoster without complications; E87.5 Hyperkalemia; E83.39 Other disorders of phosphorus metabolism; I25.110 Atherosclerotic heart disease of native coronary artery with unstable angina pectoris; M19.90 Unspecified osteoarthritis, unspecified site; F32.9 Major depressive disorder, single episode, unspecified; K21.9 Gastro-esophageal reflux disease without esophagitis; E78.5 Hyperlipidemia, unspecified; K57.90 Diverticulosis of intestine, part unspecified, without perforation or abscess without bleeding; M51.36 Other intervertebral disc degeneration, lumbar region; M50.321 Other cervical disc degeneration at C4-C5 level; H53.2 Diplopia; F43.10 Post-traumatic stress disorder, unspecified; R74.8 Abnormal levels of other serum enzymes; I46.9 Cardiac arrest, cause unspecified; I25.5 Ischemic cardiomyopathy; I25.2 Old myocardial infarction; I49.01 Ventricular fibrillation; K44.9 Diaphragmatic hernia without obstruction or gangrene; I45.4 Nonspecific intraventricular block; D64.9 Anemia, unspecified; I69.312 Visuospatial deficit and spatial neglect following cerebral infarction; T50.2X5A Adverse effect of carbonic-anhydrase inhibitors, benzothiadiazides and other diuretics, initial encounter; Z71.3 Dietary counseling and surveillance; Z79.899 Other long term (current) drug therapy; Z79.01 Long term (current) use of anticoagulants; Z87.81 Personal history of (healed) traumatic fracture; Z87.442 Personal history of urinary calculi; Z87.891 Personal history of nicotine dependence; Z87.01 Personal history of pneumonia (recurrent); Z95.810 Presence of automatic (implantable) cardiac defibrillator; Z95.1 Presence of aortocoronary bypass graft; Z90.81 Acquired absence of spleen; Z90.49 Acquired absence of other specified parts of digestive tract; Z98.42 Cataract extraction status, left eye; Z98.41 Cataract extraction status, right eye; Z86.19 Personal history of other infectious and parasitic diseases; Z86.79 Personal history of other diseases of the circulatory system; Z88.8 Allergy status to other drugs, medicaments and biological substances; Z91.041 Radiographic dye allergy status; Z82.49 Family history of ischemic heart disease and other diseases of the circulatory system; Z80.1 Family history of malignant neoplasm of trachea, bronchus and lung; Z80.0 Family history of malignant neoplasm of digestive organs
CPT/HCPCS: 36415; 71045; 71046; 71250; 74018; 74176; 76770; 80048; 80053; 81001; 82306; 82570; 82607; 82652; 82746; 83605; 83630; 83735; 83880; 84100; 84132; 84300; 84443; 84484; 85025; 85379; 85610; 85730; 87045; 87046; 87324; 87502; 93005; 93306; 94640; 94760; 96365; 96366; 96376; 99291